=== PATIENT | male | born 1940 | race Caucasian/White ===

== ENCOUNTER 2019-11-21 05:41 | Day surgery (SDC) | payer MEDICARE, BC, MEDICAID ==
[2019-11-18 14:55] VITALS: BMI 22.9
[2019-11-21] MEDS ORDERED: Ophthalmic Irrigation Solution 0 ML ONE (06:30)
[2019-11-21] MEDS ORDERED: Bupivacaine 0.25% HCL 30 ML VIAL ONE (06:30)
[2019-11-21] MEDS ORDERED: EPINEPHrine 1 MG/ML AMP ONE (06:30)
[2019-11-21] MEDS ORDERED: Fentanyl 100 MCG/2 ML VIAL ONE (06:31)
[2019-11-21] MEDS ORDERED: HYDROmorphone 0.5 MG/0.5 ML SYRINGE ONE (06:31)
[2019-11-21] MEDS ORDERED: Midazolam HCl 2 mg/2 ml Vial ONE (07:14)
[2019-11-21] MEDS ORDERED: Lidocaine 1% (PF) 30 ML VIAL ONE (07:25)
--- NOTE | 2019-11-28 18:31 | EKG ---
Test Reason : PREOP Blood Pressure : / mmHG Vent. Rate : 073 BPM Atrial Rate : 059 BPM P-R Int : 000 ms QRS Dur : 152 ms QT Int : 472 ms P-R-T Axes : 000 005 068 degrees QTc Int : 519 ms Electronic ventricular pacemaker No previous ECGs available Confirmed by JASON WRIGHT, DR. Julian ([id number]) on 11/28/2019 6:30:57 PM Referred By: SONU Confirmed By:DR. Eliel GOMEZ MD
== END 2019-11-21 10:21 | disposition home or self-care (01) ==
LOC: SDC 05:41
PROVIDERS: ATTEND Plastic Surgery
DX: C44.612 Basal cell carcinoma of skin of right upper limb, including shoulder (principal); C44.41 Basal cell carcinoma of skin of scalp and neck; C44.309 Unspecified malignant neoplasm of skin of other parts of face; I11.0 Hypertensive heart disease with heart failure; I50.9 Heart failure, unspecified; I25.2 Old myocardial infarction; J44.9 Chronic obstructive pulmonary disease, unspecified; M19.90 Unspecified osteoarthritis, unspecified site; G30.9 Alzheimer's disease, unspecified; F02.80 Dementia in other diseases classified elsewhere, unspecified severity, without behavioral disturbance, psychotic disturbance, mood disturbance, and anxiety; Z53.9 Procedure and treatment not carried out, unspecified reason; Z86.73 Personal history of transient ischemic attack (TIA), and cerebral infarction without residual deficits; Z79.01 Long term (current) use of anticoagulants; Z79.82 Long term (current) use of aspirin; Z79.899 Other long term (current) drug therapy; Z95.810 Presence of automatic (implantable) cardiac defibrillator
CPT/HCPCS: 93005; 93010; J0171; J0690; J1170; J2001; J2250; J3010; S0020

== ENCOUNTER 2020-08-01 07:42 | Inpatient (IN) | payer MEDICARE, MEDICAID, OTHER ==
[2020-08-01] MEDS ORDERED: Cefepime 2 GM VIAL ONE (08:43)
[2020-08-01] MEDS ORDERED: Vancomycin HCl 1.2 GM in Sodium Chloride 0.9% 250 ML 250 ML IVPB SCH (08:45)
[2020-08-01] MEDS ORDERED: Vancomycin HCl 1.25 GM in Sodium Chloride 0.9% 250 ML 250 ML IVPB SCH (09:00)
[2020-08-01 10:14] LABS: SARS-CoV-2 NAA Rapid Test DETECTED (NotDetected)
[2020-08-01 11:02] LABS: Bilirubin Negative (Negative); Blood, Urine Negative (Negative); Clarity Clear (Clear); Glucose, Urine (Dipstick) Normal (Negative); Ketone, Urine Negative (Negative); Leukocyte Negative Leu/uL (Negative); Nitrite Negative (Negative); Protein, Urine (Dipstick) 70 mg/dL (Neg-Trace); RBC/HPF 0-3 HPF (0-3); Specific Gravity, Urine 1.023 (1.002-1.036); Squamous Epithelial 0-3 HPF (0-3); Urobilinogen Normal mg/dL (Less than 2); WBC/HPF 0-3 HPF (0-3); pH, Urine 5.5 (5.0-9.0)
[2020-08-01 11:03] LABS: Bacteria/HPF 1+ HPF (None Seen)
--- NOTE | 2020-08-01 11:07 | CT ---
CT HEAD WITHOUT CONTRAST: INDICATION: Mental status change. COMPARISON: Comparison is made to head CT of 01/31/2020. FINDINGS: Moderate cortical atrophy again noted. Ventricles have normal size and position. Moderate chronic i schemic white matter change. Encephalomalacia involving the right temporoparietal lobe is stable. No evidence of cute hemorrhage. No evidence of mass, edema, or acute infarct. No interval change. IMPRESSION: Chronic findings remain stable. POS: AGW
[2020-08-01 11:30] LABS: Lactic Acid 1.8 mmol/L (0.5-2.2)
--- NOTE | 2020-08-01 12:12 | PDOC.FPRHP ---
- History of Present Illness Chief Complaint: Cough and fever History of Present Illness: This is an 80 yo male with a pmh of HTN, CVA, COPD, GERD, constipation, Alzheimer's dementia, HLD, and seizures who presents to the ER from [facility]. Per chart review, pt was coughing and febrile for the last 2 days. Prior to sending the patient to the ER, the prison reports he became increasingly combative, tachypnic, and they were unable to obtain vitals due to his behavior. I spoke with his daughter who reports they have not been able to see him for a while due to COVID. In the outside ER, a CXR was obtained that shows no signs of acute intrathoracic processes. He was given Zosyn 2.25g, Levaquin 500mg, and Vancomycin 1g at roughly 0600 this AM. He also received 2L NS bolus, Tylenol 1g, and Albuterol HFA 2 puffs. In our ER, he received Cefepime 2g, Vancomycin 1.2g, and NS 1L bolus. When I went to evaluate the pt, he was moderately agitated and would not cooperate with the majority of the exam. ED Course: See Above - Allergies/Adverse Reactions Allergies Allergy/AdvReac Type Severity Reaction Status Date / Time No Known Allergies Allergy Unverified 01/19/20 15:08 - Home Medications Medication Instructions Recorded Confirmed Type Acetaminophen [Tylenol] 650 mg PO PRN PRN 11/18/19 08/01/20 History Apixaban [Eliquis] 2.5 mg PO BID 11/18/19 08/01/20 History Aspirin [Ecotrin] 81 mg PO DAILY 11/18/19 08/01/20 History Digoxin [Lanoxin] 125 mcg PO DAILY 11/18/19 08/01/20 History Docusate [Colace] 100 mg PO DAILY 11/18/19 08/01/20 History Furosemide 40 mg PO DAILY 11/18/19 08/01/20 History Memantine HCl 5 mg PO DAILY 11/18/19 08/01/20 History Metoprolol Succinate 25 mg PO DAILY 11/18/19 08/01/20 History Potassium Chloride 20 meq PO DAILY 11/18/19 08/01/20 History Sertraline HCl [Zoloft] 25 mg PO DAILY 11/18/19 08/01/20 History Atorvastatin Calcium [Lipitor] 5 mg PO HS 08/01/20 08/01/20 History Divalproex Sodium ER [Depakote ER] 250 mg PO HS 08/01/20 08/01/20 History Donepezil HCl [Aricept] 10 mg PO HS 08/01/20 08/01/20 History Mag Hydrox/Aluminum Hyd/Simeth 355 ml PO PRN PRN 08/01/20 08/01/20 History [Mylanta Maximum Strength Liq] Magnesium Hydroxide [Milk of 5 - 10 ml PO HS PRN 08/01/20 08/01/20 History Magnesia] OLANZapine [ZyPREXA] 2.5 mg PO HS 08/01/20 08/01/20 History OXcarbazepine [Trileptal] 75 mg PO DAILY 08/01/20 08/01/20 History OXcarbazepine [Trileptal] 150 mg PO HS 08/01/20 08/01/20 History clonazePAM 0.25 mg PO BID 08/01/20 08/01/20 History - History PMHx:COPD, CVA, HTN, GERD, Alzheimer's dementia, constipation, PSHx: pace maker placement FHx: Non-contributory Social: Unable to obtain - Review of Systems ROS unobtainable: due to mental status General: reports: fever/chills. denies: weight/appetite/sleep changes, night sweats, fatigue Respiratory: reports: cough, congestion, shortness of breath - Vital signs BP: 147/67 HR: 60 RR: 18 Tmax: 100.6 Pox: 96% on 2L Wt: 61 kg - Physical Exam Constitutional: other (GCS [id number], pt not oriented and combative with normal exam) HEENT: PERRLA, MMM Neck: trachea midline, no JVD Heart: RRR, normal S1/S2, no murmurs/rubs/gallops, pulses present, other (cool extremities) Lungs: other (diffuse rhonchi, poor respiratory effor) Abdomen: soft, non-tender, bowel sounds present, no masses/distention Musculoskeletal: normal structure Neurological: other (Unable to assess) Skin: good turgor, other Heme/Lymphatic: other (bruising over hands and forearms) Psychiatric: other (agitated) FMR H&P: Results - Labs Lab results: Lactic Acid 1.8 mmol/L (0.5-2.2) 08/01/20 10:58 Urine Ketones Negative mg/dL (Negative) 08/01/20 10:32 Urine Blood Negative (Negative) 08/01/20 10:32 Urine Nitrite Negative (Negative) 08/01/20 10:32 Ur Leukocyte Esterase Negative Dhiraj/uL (Negative) 08/01/20 10:32 Urine RBC 0-3 HPF (0-3) 08/01/20 10:32 Urine WBC 0-3 HPF (0-3) 08/01/20 10:32 Ur Squamous Epith Cells 0-3 HPF (0-3) 08/01/20 10:32 Urine Bacteria 1+ HPF (None Seen) A 08/01/20 10:32 - EKG Interpretation EKG: Paced rhythm at 61 - Radiology Interpretation Chest x-ray Status: image reviewed by me (Possible opacities over the left mid lobe), report reviewed by me (No acute intrathoracic findings) CT scan - head Status: report reviewed by me (No acute intracranial processes) FMR H&P: A/P - Plan Acute hypoxic respiratory failure 2/2 COVID PNA -Admit to inpatient medical -Start of COVID symptoms: 07/30/20, Positive test on 08/01/20 -Respiratory support -Duonebs given hx of COPD -Dexamethasone IV -Pending Procal, LDH, ferritin, d-dimer to quantify COVID severity and establish baseline -Daily CXR Sepsis 2/2 above -Currently on Azithromycin and cefepime, pending procal to determine abx continuation -Pending blood and urine cultures from [facility] Acute metabolic encephalopathy likely 2/2 above -Continue home medications for Alzheimer's -Treat Sepsis -CT brain negative CKD 3 -Appears stable Pancytopenia -Will monitor Lactic acidosis, resolved Elevated troponin, likely 2/2 stress Atrial fibrillation -Continue home eliquis, metoprolol, and digoxin -Currently rate controlled. Levels appeared subtherapeutic at 0.50 COPD -Will treat with duonebs and steroids GERD -Pepcid IV Alzheimer's dementia -Continue home olanzapine, clonazepam, and donepezil Hx of seizures -Continue home depakote Hx of CVA -Continue home aspirin and atorvastatin Code: DNAR confirmed by pt's daughter MPOA Prophylaxis: Home Eliquis, pepcid Family: Discussed with pt's daughter Opal Delgado Fluids: LR 100ml/hr Diet: NPO pending speech eval Disposition: DC in 4-5 days, CM consulted for return to prison PCP: Dr. Delarosa
[2020-08-01] MEDS ORDERED: Ondansetron ODT 4 MG TAB SL PRN (12:45)
[2020-08-01] MEDS ORDERED: Ondansetron PF 4 MG/2 ML Vial IVP PRN (12:45)
[2020-08-01] MEDS ORDERED: Sodium Chloride 0.9% 1,000 ML IV SCH (12:45)
[2020-08-01] MEDS ORDERED: Acetaminophen 325 MG TAB PO PRN (12:45)
[2020-08-01] MEDS ORDERED: Azithromycin 500 MG in Sodium Chloride 0.9% 250 ML 250 ML IVPB SCH (13:00)
[2020-08-01] MEDS ORDERED: Mag-Al Plus 1200 MG/1200 MG/120 MG/30 ML UDCUP PO PRN (13:56)
[2020-08-01] MEDS ORDERED: PROVENTIL INHALER 6.7 G (200 INHALATIONS) INH PRN ×2 (14:23→14:30)
[2020-08-01] MEDS: Cefepime 1 GM in Sodium Chloride 0.9% 100 ML IVPB SCH (14:50)
[2020-08-01] MEDS: Lactated Ringer's 1,000 ML IV SCH ×2 (14:52→23:18)
[2020-08-01] MEDS ORDERED: Labetalol HCl 100 MG/20 ML VIAL SLOW IVP PRN (15:57)
[2020-08-01 16:15] VITALS: BMI 24.1
[2020-08-01] MEDS: PROVENTIL INHALER 6.7 G (200 INHALATIONS) INH SCH ×2 (18:55→23:17)
[2020-08-01] MEDS: Atorvastatin Calcium 10 MG TAB PO SCH (20:28)
[2020-08-01] MEDS: clonazePAM 0.5 MG TAB PO SCH (20:28)
[2020-08-01] MEDS: Apixaban 2.5 MG TAB PO SCH (20:28)
[2020-08-01] MEDS: Dexamethasone 4 MG in Sodium Chloride 0.9% 50 ML IVPB SCH (20:31)
[2020-08-01] MEDS: OLANZapine 2.5 MG TAB PO SCH (20:32)
[2020-08-01] MEDS: Donepezil HCl 10 MG TAB PO SCH (20:32)
[2020-08-01] MEDS: OXcarbazepine 150 MG TAB PO SCH (20:32)
[2020-08-01] MEDS ORDERED: Famotidine/PF 20 mg/2ml Vial SLOW IVP SCH (21:00)
[2020-08-02] MEDS: PROVENTIL INHALER 6.7 G (200 INHALATIONS) INH SCH ×6 (03:23→23:32)
[2020-08-02 06:20] LABS: ALT (SGPT) 10 U/L (8-55); AST (SGOT) 19 U/L (5-34); Albumin 3.1 g/dL (3.4-4.8); Alkaline Phosphatase 92 U/L (40-110); Anion Gap 16 mmol/L (10-20); BUN (Urea Nitrogen) 37 mg/dL (8.4-25.7); Bilirubin, Total 0.4 mg/dL (0.2-1.2); Calc. Creatinine Clearance 37 mL/min (70-130); Calcium 7.7 mg/dL (7.8-10.44); Carbon Dioxide 17 mmol/L (23-31); Chloride 114 mmol/L (98-107); Estimated GFR-MDRD 41; Globulin 2.5 g/dL (2.4-3.5); Glucose 154 mg/dL (83-110); Potassium 4.7 mmol/L (3.5-5.1); Protein, Total 5.6 g/dL (5.8-8.1); Sodium 142 mmol/L (136-145)
[2020-08-02 07:09] LABS: #Lymphocytes 0.4 thou/uL (1.20-3.40); #Monocytes 0.2 thou/uL (0.11-0.59); #Neutrophils 1.3 thou/uL (1.40-6.50); %Eosinophils 0.2 % (0.0-10.0); %Lymphocytes 21.2 % (21.0-51.0); %Monocytes 8.5 % (0.0-10.0); Hemoglobin 9.7 g/dL (14.0-18.0); Mean Corpuscular Hemoglobin 29.9 pg (27.0-31.0); Mean Corpuscular Volume 96.3 fL (78.0-98.0); Mean Platelet Volume 8.1 fL (7.4-10.4); Platelet Count 108 thou/uL (130-400); RBC Distribution Width 14.8 % (11.5-14.5); Red Blood Cell (RBC) Count 3.25 mill/uL (4.70-6.10); White Blood Cell (WBC) Count 1.9 thou/uL (4.8-10.8)
[2020-08-02 07:49] LABS: MDiff Complete? YES; Platelet Morphology Comment Appears Decreased; Polychromasia SLIGHT = 2-3 cells (100X) (0-2/hpf)
[2020-08-02] MEDS ORDERED: Tetracaine HCl 0.5% Ophth Soln 2 ML Bottle ONE (08:15)
[2020-08-02] MEDS: Azithromycin 250 MG in Sodium Chloride 0.9% 250 ML 250 ML IVPB SCH (09:31)
[2020-08-02] MEDS: OXcarbazepine 150 MG TAB PO SCH ×2 (09:31→20:21)
[2020-08-02] MEDS: Dexamethasone 4 MG in Sodium Chloride 0.9% 50 ML IVPB SCH ×2 (09:31→20:21)
[2020-08-02] MEDS: Docusate 100 MG CAP PO SCH ×2 (09:32)
[2020-08-02] MEDS: Apixaban 2.5 MG TAB PO SCH ×2 (09:32→20:22)
[2020-08-02] MEDS: Furosemide 40 MG TAB PO SCH (09:32)
[2020-08-02] MEDS: Digoxin 0.125 MG TAB PO SCH (09:32)
[2020-08-02] MEDS: clonazePAM 0.5 MG TAB PO SCH ×2 (09:32→20:22)
[2020-08-02] MEDS: Aspirin 81 mg Enteric Coated Tablet PO SCH (09:32)
--- NOTE | 2020-08-02 09:34 | RAD ---
PORTABLE CHEST: Date: 08/02/2020 HISTORY: COVID pneumonia. COMPARISON: 08/01/2020 exam. FINDINGS: Heart size appears slightly enlarged. Internal defibrillator device is present Infiltrative appearing changes in the left mid lung field and a more linear change in the right base are all stable. IMPRESSION: Stable exam. POS: SHE
[2020-08-02] MEDS: Lactated Ringer's 1,000 ML IV SCH ×3 (10:13→20:24)
[2020-08-02] MEDS ORDERED: Azithromycin 250 MG in Sodium Chloride 0.9% 500 ML IVPB SCH (13:00)
--- NOTE | 2020-08-02 13:11 | PDOC.FM ---
- Subjective Subjective: Patient lying in bed this morning, not cooperative with answering questions and for most of exam. States repeatedly "leave me alone". No complaints. - Objective MAR Reviewed: Yes Vital Signs & Weight: Vital Signs (12 hours) Temp Pulse Resp BP Pulse Ox 08/02/20 12:33 97.4 F L 61 18 157/77 H 97 08/02/20 09:32 97.4 F L 61 18 158/74 H 96 08/02/20 05:45 97.8 F 60 20 137/65 92 L 08/02/20 03:00 62 20 93 L Weight Weight 72.121 kg I&O: 08/01/20 08/02/20 08/03/20 06:59 06:59 06:59 Intake Total 2310 Balance 2310 Result Diagrams: 08/02/20 05:49 08/02/20 05:49 Phys Exam - Physical Examination Constitutional: NAD HEENT: moist MMs Neck: no JVD, supple Respiratory: clear to auscultation bilateral Cardiovascular: RRR, no significant murmur Musculoskeletal: no edema Neurological: moves all 4 limbs Deviation from normal: alert, oriented to person Skin: no rash Dx/Plan - Plan Plan: Acute hypoxic respiratory failure 2/2 COVID PNA -Start of COVID symptoms: 07/30/20, Positive test on 08/01/20 -Respiratory support, currently requiring 3L N/C--wean as tolerated -Duonebs given hx of COPD -Dexamethasone IV -Procal, LDH, ferritin, d-dimer to quantify COVID severity and establish baseline -Daily CXR Sepsis 2/2 above -Currently on Azithromycin and cefepime, pending procal to determine abx continuation -Pending blood and urine cultures from [facility] Acute metabolic encephalopathy likely 2/2 above -Continue home medications for Alzheimer's -Treat Sepsis -CT brain negative CKD 3 -Appears stable Pancytopenia -Will monitor Lactic acidosis, resolved Elevated troponin, likely 2/2 stress Atrial fibrillation -Continue home eliquis, metoprolol, and digoxin -Currently rate controlled. Levels appeared subtherapeutic at 0.50 COPD -Will treat with duonebs and steroids GERD -Pepcid IV Alzheimer's dementia -Continue home olanzapine, clonazepam, and donepezil Hx of seizures -Continue home depakote Hx of CVA -Continue home aspirin and atorvastatin Code: DNAR confirmed by pt's daughter MPOA Prophylaxis: Home Eliquis, pepcid Family: Discussed with pt's daughter Opal Delgado Fluids: LR 100ml/hr Diet: NPO pending speech eval PCP: Dr. Delarosa Disposition: Stable, admitted to inpatient on medical unit. Monitor respiratory status. Anticipate discharge 2-3 days, CM consulted for return to [facility]
[2020-08-02] MEDS: Cefepime 1 GM in Sodium Chloride 0.9% 100 ML IVPB SCH (14:34)
--- NOTE | 2020-08-02 15:46 | HP ---
HISTORY OF PRESENT ILLNESS: I have examined the patient and discussed the case with Dr. Jose Sheppard. I agree with his assessment and plan. Mr. Garduno is an 80-year-old man with many comorbidities including hypertension, CVA, COPD, and Alzheimer dementia. He presented from the [facility] with COVID positivity as well as pneumonia. He has been admitted for further treatment. PHYSICAL EXAMINATION: VITAL SIGNS: His blood pressure is 147/60, heart rate is 60, respirations 18. He had a 102.6 fever at an outlying institution. Here, it is 100.6. His pulse ox on 2 L is 96%. GENERAL: The patient is very combative and disoriented. EAR, NOSE, AND THROAT: No erythema or exudate. CARDIAC : Heart rhythm regular. No gallop or murmur noted. LUNGS: Diffuse rhonchi, but no respiratory distress. ABDOMEN: Flat and soft. Difficult to assess neurologically, but no evident focal deficits. ASSESSMENT: Acute hypoxic respiratory failure secondary to COVID pneumonia. PLAN: Begin treatment. O2 supplementation. Monitor closely. Would now like to proceed with a daily note on Mr. Garduno and add this as an addendum to the note of Dr. Cynthia Garcia. I have reviewed the note of Dr. Cynthia Garcia. I agreed with her assessment and plan. Job ID: [id number]
[2020-08-02] MEDS: Atorvastatin Calcium 10 MG TAB PO SCH (20:21)
[2020-08-02] MEDS: Donepezil HCl 10 MG TAB PO SCH (20:21)
[2020-08-02] MEDS: OLANZapine 2.5 MG TAB PO SCH (20:23)
[2020-08-02] MEDS: Famotidine/PF 20 mg/2ml Vial SLOW IVP SCH (20:24)
[2020-08-03] MEDS: Acetaminophen 500 MG TAB PO PRN (00:06)
[2020-08-03] MEDS: PROVENTIL INHALER 6.7 G (200 INHALATIONS) INH SCH ×6 (02:11→20:47)
[2020-08-03 05:58] LABS: #Lymphocytes 0.4 thou/uL (1.20-3.40); #Monocytes 0.2 thou/uL (0.11-0.59); #Neutrophils 3.1 thou/uL (1.40-6.50); %Eosinophils 0.2 % (0.0-10.0); %Lymphocytes 10.9 % (21.0-51.0); %Monocytes 5.3 % (0.0-10.0); %Neutrophils 83.6 % (42.0-75.0); Hemoglobin 9.7 g/dL (14.0-18.0); Mean Corpuscular HGB CONC 32.5 g/dL (32.0-36.0); Mean Corpuscular Hemoglobin 30.6 pg (27.0-31.0); Mean Corpuscular Volume 94.2 fL (78.0-98.0); Mean Platelet Volume 7.9 fL (7.4-10.4); Platelet Count 124 thou/uL (130-400); RBC Distribution Width 14.6 % (11.5-14.5); Red Blood Cell (RBC) Count 3.17 mill/uL (4.70-6.10); White Blood Cell (WBC) Count 3.7 thou/uL (4.8-10.8)
[2020-08-03] MEDS: Lactated Ringer's 1,000 ML IV SCH ×3 (06:06→19:50)
[2020-08-03 06:18] LABS: Anion Gap 18 mmol/L (10-20); BUN (Urea Nitrogen) 46 mg/dL (8.4-25.7); Calc. Creatinine Clearance 37 mL/min (70-130); Carbon Dioxide 17 mmol/L (23-31); Chloride 112 mmol/L (98-107); Estimated GFR-MDRD 41; Potassium 4.3 mmol/L (3.5-5.1); Sodium 143 mmol/L (136-145)
[2020-08-03 06:19] LABS: ALT (SGPT) 13 U/L (8-55); AST (SGOT) 24 U/L (5-34); Albumin 3.4 g/dL (3.4-4.8); Alkaline Phosphatase 94 U/L (40-110); Bilirubin, Total 0.4 mg/dL (0.2-1.2); Calcium 8.3 mg/dL (7.8-10.44); Globulin 2.7 g/dL (2.4-3.5); Glucose 136 mg/dL (83-110); Protein, Total 6.1 g/dL (5.8-8.1)
--- NOTE | 2020-08-03 07:07 | PDOC.FM ---
- Subjective Subjective: Patient seen sitting up in bed, eating chocolate pudding this morning. No overnight events. Voices no complaints. - Objective MAR Reviewed: Yes Vital Signs & Weight: Vital Signs (12 hours) Temp Pulse Resp BP Pulse Ox 08/03/20 04:00 97.7 F 62 20 150/67 H 94 L 08/03/20 00:21 95 08/03/20 00:00 98.6 F 93 18 147/77 H 95 08/02/20 20:26 62 20 95 08/02/20 20:00 95 08/02/20 19:59 97.8 F 62 20 158/74 H 95 Weight Admit Weight 72.121 kg Weight 72.121 kg I&O: 08/02/20 08/03/20 08/04/20 06:59 06:59 06:59 Intake Total 2310 2890 Balance 2310 2890 Result Diagrams: 08/03/20 05:38 08/03/20 05:38 Phys Exam - Physical Examination Constitutional: NAD HEENT: moist MMs, sclera anicteric Neck: no JVD, supple Respiratory: clear to auscultation bilateral Cardiovascular: RRR, no significant murmur Gastrointestinal: soft, non-tender, no distention Musculoskeletal: no edema, pulses present Neurological: moves all 4 limbs Psychiatric: normal affect Skin: no rash Dx/Plan - Plan Plan: Acute hypoxic respiratory failure 2/2 COVID PNA -Start of COVID symptoms: 07/30/20, Positive test on 08/01/20 -Respiratory support, currently requiring 2L N/C--wean as tolerated -Duonebs given hx of COPD -Dexamethasone IV -Procal, LDH, ferritin, d-dimer to quantify COVID severity and establish baseline -Daily CXR Sepsis 2/2 above -Currently on Azithromycin and cefepime -Procal 0.27 -blood and urine cultures from [facility]--both neg @ 24 hours Acute metabolic encephalopathy likely 2/2 above -Continue home medications for Alzheimer's -Treat Sepsis -CT brain negative CKD 3 -Appears stable Pancytopenia -Will monitor Lactic acidosis, resolved Elevated troponin, likely 2/2 stress Atrial fibrillation -Continue home eliquis, metoprolol, and digoxin -Currently rate controlled. Levels appeared subtherapeutic at 0.50 COPD -Will treat with duonebs and steroids GERD -Pepcid IV Alzheimer's dementia -Continue home olanzapine, clonazepam, and donepezil Hx of seizures -Continue home depakote Hx of CVA -Continue home aspirin and atorvastatin Code: DNAR confirmed by pt's daughter MPOA Prophylaxis: Home Eliquis, pepcid Family: Discussed with pt's daughter Opal Delgado, Fluids: LR 100ml/hr Diet: Regular diet (thickened textures per speech eval) PCP: Dr. Delarosa Disposition: Stable, admitted to inpatient on medical unit. Monitor respiratory status. Anticipate discharge 2-3 days, CM consulted for return to [facility]
[2020-08-03] MEDS: Aspirin 81 mg Enteric Coated Tablet PO SCH (08:29)
[2020-08-03] MEDS: clonazePAM 0.5 MG TAB PO SCH ×2 (08:29→19:49)
[2020-08-03] MEDS: Docusate 100 MG CAP PO SCH (08:30)
[2020-08-03] MEDS: OXcarbazepine 150 MG TAB PO SCH ×2 (08:30→19:50)
[2020-08-03] MEDS: Apixaban 2.5 MG TAB PO SCH ×2 (08:30→19:48)
[2020-08-03] MEDS: Digoxin 0.125 MG TAB PO SCH (08:30)
--- NOTE | 2020-08-03 08:30 | RAD ---
Exam: Chest one view HISTORY:COVID pneumonia Comparison: 08/02/2020 FINDINGS: Cardiac silhouette:Cardiomegaly. Stable 3-lead defibrillator. Aorta: Atherosclerotic Pulmonary vessels: Normal Costophrenic angles: Clear LUNGS: Persistent scattered interstitial opacities with more focal consolidation in the left lung. Pneumothorax: None Osseous abnormalities: None IMPRESSION: No significant interval change. Persistent COVID pneumonia.
[2020-08-03] MEDS: Furosemide 40 MG TAB PO SCH (08:31)
[2020-08-03] MEDS: Dexamethasone 4 MG in Sodium Chloride 0.9% 50 ML IVPB SCH ×2 (08:37→19:49)
[2020-08-03] MEDS: Azithromycin 250 MG in Sodium Chloride 0.9% 250 ML 250 ML IVPB SCH (11:38)
--- NOTE | 2020-08-03 12:21 | PRG ---
DATE OF SERVICE: 08/03/2020 Mr. Garduno is doing well. He is sitting up in bed, happily eating some chocolate pudding. He is still on treatment for his bacterial pneumonia as well as supportive care for his COVID pneumonia. His current regimen includes azithromycin and cefepime. Job ID: [id number]
[2020-08-03] MEDS: Cefepime 1 GM in Sodium Chloride 0.9% 100 ML IVPB SCH (14:35)
[2020-08-03] MEDS: Atorvastatin Calcium 10 MG TAB PO SCH (19:48)
[2020-08-03] MEDS: Famotidine/PF 20 mg/2ml Vial SLOW IVP SCH (19:49)
[2020-08-03] MEDS: Donepezil HCl 10 MG TAB PO SCH (19:49)
[2020-08-03] MEDS: OLANZapine 2.5 MG TAB PO SCH (19:50)
[2020-08-03 23:00] LABS: Actual Bicarbonate (HCO3a) 17.5 mEq/L (22-28); Base Excess (BEa) -6.9 mEq/L (-2.0 to +3.0); CO2 Tension 31.4 mmHg (35.0-45.0); Calcium, Ionized (arterial) 1.16 mmol/L (1.12-1.30); Carboxyhemoglobin (COHb) 0.3 gm% (0.0-3.0); Hemoglobin (Hb) 10.1 g/dL (14.0-18.0); O2 Tension (PaO2), arterial 94.9 mmHg (> 60.0); Potassium - ABG Lab 4.49 mmol/L (3.70-5.30); pH, Arterial 7.37 (7.35-7.45)
[2020-08-03 23:01] LABS: Puncture Site R RADIAL
[2020-08-04] MEDS: hydrOXYzine 25 MG TAB PO PRN ×2 (00:28→14:18)
[2020-08-04] MEDS: Lactated Ringer's 1,000 ML IV SCH ×3 (00:57→20:41)
[2020-08-04] MEDS: PROVENTIL INHALER 6.7 G (200 INHALATIONS) INH SCH ×6 (02:27→22:06)
--- NOTE | 2020-08-04 05:37 | PDOC.FM ---
- Subjective Subjective: Pt desaturated overnight and was placed on a non-rebreather. He is now on HFNC. Pt cannot receive - Objective MAR Reviewed: Yes Vital Signs & Weight: Vital Signs (12 hours) Temp Pulse Resp BP Pulse Ox 08/04/20 04:20 97.6 F 60 22 H 160/71 H 92 L 08/04/20 00:30 98.3 F 62 24 H 160/78 H 94 L 08/03/20 21:10 64 24 H 93 L 08/03/20 20:00 91 L 08/03/20 19:50 97.8 F 64 28 H 115/75 91 L 08/03/20 18:48 62 20 92 L Weight Admit Weight 72.121 kg Weight 72.121 kg I&O: 08/02/20 08/03/20 08/04/20 06:59 06:59 06:59 Intake Total 2310 2890 1360 Balance 2310 2890 1360 Result Diagrams: 08/03/20 05:38 08/03/20 05:38 Phys Exam - Physical Examination Resting dry mm Neck: no JVD Respiratory: wheezing present (with scattered rhonchi) Cardiovascular: RRR, no significant murmur Gastrointestinal: soft, non-tender, no distention Musculoskeletal: no edema, pulses present Neurological: moves all 4 limbs Deviation from normal: awake but not oriented Skin: cap refill <2 seconds Dx/Plan - Plan Plan: Acute hypoxic respiratory failure 2/2 COVID PNA -Start of COVID symptoms: 07/30/20, Positive test on 08/01/20 -Respiratory support and is now requiring HFNC -Dr. Abbasi consultd and starting convalescent plasma and remdesivir -Duonebs given hx of COPD -Dexamethasone IV -Procal, LDH, ferritin, d-dimer to quantify COVID severity and establish baseline -Daily CXR Sepsis 2/2 above -Currently on Azithromycin and cefepime -Procal 0.27 -blood and urine cultures from [facility]--both neg Acute metabolic encephalopathy likely 2/2 above -Continue home medications for Alzheimer's -Treat Sepsis -CT brain negative CKD 3 -Appears stable Pancytopenia -Will monitor Lactic acidosis, resolved Elevated troponin, likely 2/2 stress Atrial fibrillation -Continue home eliquis, metoprolol, and digoxin -Currently rate controlled. Levels appeared subtherapeutic at 0.50, repeating level this AM COPD -Will treat with Inhalers and steroids. Due to pt's poor cooperation, we will attempt oral albuterol and Singulair to help with breathing GERD -Pepcid IV Alzheimer's dementia -Continue home olanzapine, clonazepam, and donepezil Hx of seizures -Continue home depakote Hx of CVA -Continue home aspirin and atorvastatin Code: DNAR confirmed by pt's daughter MPOA Prophylaxis: Home Eliquis, pepcid Family: Discussed with pt's daughter Opal Delgado, Fluids: SL Diet: Regular diet (thickened textures per speech eval) PCP: Dr. Delarosa Disposition: Stable, admitted to inpatient on medical unit. Monitor respiratory status. Anticipate discharge 4-5 days, CM consulted for return to long term Addendum - Attending - Attending Attestation Date/Time: 08/04/20 3136 I personally evaluated the patient and discussed the management with Dr. Sheppard. I agree with the History, Examination, Assessment and Plan documented above with any addition or exceptions noted below. Patient having increasing oxygen requirement. We will discuss with ID the pot ential for Remdesevir and Plasma. We will increase his steroids. he is a DNAR so HFNC is likely the last therapeutic we will have to offer. Will discuss and update family. Renal function stable.
--- NOTE | 2020-08-04 08:10 | RAD ---
PORTABLE CHEST: HISTORY: Respiratory distress. COMPARISON: Film earlier today. FINDINGS: There is hazy alveolar infiltrate throughout the left lung prominent in the left perihilar region, un changed from the film earlier today. Interstitial haziness in the right lung appears stable. Bilate ral effusions are unchanged in appearance. Pacemaker leads unchanged. IMPRESSION: Stable chest findings. POS: AGW
[2020-08-04] MEDS: Ipratropium/Albuterol Sulfate 4 GM AER IH SCH ×3 (08:31→18:54)
[2020-08-04] MEDS: Dexamethasone 4 MG in Sodium Chloride 0.9% 50 ML IVPB SCH (08:34)
--- NOTE | 2020-08-04 09:05 | RAD ---
PORTABLE CHEST: HISTORY: COVID pneumonia. COMPARISON: Prior day's exam. FINDINGS: Heart size is enlarged. Internal defibrillator device is present. Infiltrative lung changes and chr onic-appearing changes are all stable. IMPRESSION: Stable exam. POS: OFF
[2020-08-04] MEDS: Apixaban 2.5 MG TAB PO SCH ×2 (09:51→20:39)
[2020-08-04] MEDS: Docusate 100 MG CAP PO SCH (09:51)
[2020-08-04] MEDS: Aspirin 81 mg Enteric Coated Tablet PO SCH (09:51)
[2020-08-04] MEDS: clonazePAM 0.5 MG TAB PO SCH ×2 (09:53→20:36)
[2020-08-04] MEDS: OXcarbazepine 150 MG TAB PO SCH ×2 (09:53→20:38)
[2020-08-04] MEDS: Digoxin 0.125 MG TAB PO SCH (09:53)
[2020-08-04] MEDS: Furosemide 40 MG TAB PO SCH (09:53)
[2020-08-04] MEDS: Azithromycin 250 MG in Sodium Chloride 0.9% 250 ML 250 ML IVPB SCH (09:54)
[2020-08-04] MEDS ORDERED: Sterile Water 10 ML VIAL FS PRN (10:30)
[2020-08-04] MEDS ORDERED: Albuterol Sulfate 4 mg SR Tablet PO SCH (12:00)
[2020-08-04] MEDS ORDERED: Dexamethasone 6 MG in Sodium Chloride 0.9% 50 ML IVPB SCH ×2 (12:00→21:00)
[2020-08-04] MEDS: Cefepime 1 GM in Sodium Chloride 0.9% 100 ML IVPB SCH ×2 (15:09→16:03)
[2020-08-04 16:33] LABS: #Lymphocytes 0.2 thou/uL (1.20-3.40); #Monocytes 0.3 thou/uL (0.11-0.59); #Neutrophils 5.4 thou/uL (1.40-6.50); %Eosinophils 0.1 % (0.0-10.0); %Lymphocytes 3.8 % (21.0-51.0); %Neutrophils 91.1 % (42.0-75.0); Hemoglobin 9.7 g/dL (14.0-18.0); Mean Corpuscular HGB CONC 32.9 g/dL (32.0-36.0); Mean Corpuscular Hemoglobin 30.4 pg (27.0-31.0); Mean Corpuscular Volume 92.5 fL (78.0-98.0); Mean Platelet Volume 8.3 fL (7.4-10.4); Platelet Count 162 thou/uL (130-400); RBC Distribution Width 14.8 % (11.5-14.5); Red Blood Cell (RBC) Count 3.18 mill/uL (4.70-6.10); White Blood Cell (WBC) Count 5.9 thou/uL (4.8-10.8)
[2020-08-04 16:54] LABS: Digoxin 0.51 ng/mL (0.8-2.0)
[2020-08-04 16:55] LABS: ALT (SGPT) 11 U/L (8-55); AST (SGOT) 26 U/L (5-34); Albumin 3.3 g/dL (3.4-4.8); Alkaline Phosphatase 93 U/L (40-110); Bilirubin, Direct 0.3 mg/dL (0.1-0.3); Bilirubin, Total 0.5 mg/dL (0.2-1.2)
[2020-08-04 16:58] LABS: ALT (SGPT) 11 U/L (8-55); AST (SGOT) 28 U/L (5-34); Albumin 3.2 g/dL (3.4-4.8); Alkaline Phosphatase 94 U/L (40-110); Anion Gap 16 mmol/L (10-20); BUN (Urea Nitrogen) 51 mg/dL (8.4-25.7); Bilirubin, Total 0.5 mg/dL (0.2-1.2); Calc. Creatinine Clearance 37 mL/min (70-130); Calcium 8.2 mg/dL (7.8-10.44); Carbon Dioxide 19 mmol/L (23-31); Chloride 111 mmol/L (98-107); Estimated GFR-MDRD 41; Glucose 224 mg/dL (83-110); Potassium 4.3 mmol/L (3.5-5.1); Protein, Total 6.2 g/dL (5.8-8.1); Sodium 142 mmol/L (136-145)
[2020-08-04] MEDS ORDERED: REMDESIVIR (EUA) 200 MG in Sodium Chloride 0.9% 250 ML 210 ML IV SCH (17:15)
--- NOTE | 2020-08-04 18:47 | CON ---
DATE OF CONSULTATION: 08/04/2020 REASON: COVID pneumonia. HISTORY OF PRESENT ILLNESS: An 80-year-old, who is a resident at [facility] and has a history of prior CVA and dementia, probably multi-infarct dementia, COPD, hypertension, cardiomyopathy with AICD in place, who became symptomatic about 2 days before admission on August 01. [facility] and then tested again on the positive. This was a nasal swab PCR test and he was sent to the hospital because of tachycardia, elevated lactate, bilateral abnormal chest x-ray opacities. He is given IV fluids and broad-spectrum antimicrobial coverage and SARS-CoV-2 PCR test was positive. On arrival, his pulse is 60, respirations 20, and O2 saturation 96 on 3 L oxygen supplementation. He remained afebrile in the hospital emergency room. The exam there was not particularly remarkable. He was described as oriented to person. Initial findings also included white cell count 1.9, hemoglobin 9.7, platelet count with lymphocytopenia. His D-dimer is 1.07. The sodium 142, creatinine 1.61. Liver profile normal. Albumin 3.1. Procalcitonin was 0.27. CRP was 7.59 and ferritin was 170. Initial chest film demonstrated no evidence of consolidations. The next day, a chest x-ray was repeated and it showed infiltrative appearing changes mostly on the left side and some linear changes in the right base. So, the duration of the illness is probably around 7 to 8 days approximately, hard to tell though, but certainly within the week before admission. Currently, Mr. Garduno is delirious. He did not establish contact with me. He did not answer questions or follow commands. PAST MEDICAL HISTORY: COPD, prior CVA, multi-infarct dementia, cardiomyopathy, AICD, constipation, seizure activity reported, and hyperlipidemia. SOCIAL HISTORY: [facility] resident. Prior smoking history. FAMILY HISTORY: Noncontributory. ALLERGIES: NONE. MEDICATIONS: At the moment, patient is receiving; 1. Decadron. 2. Inhaler. 3. Azithromycin. 4. Cefepime. 5. Donepezil. 6. Lasix. 7. Namenda. 8. Zyprexa. 9. Trileptal. 10. Remdesivir. 11. Geodon. PHYSICAL EXAMINATION: VITAL SIGNS: T-max 100.4, he has been afebrile since; BP 160/68; heart rate 63; respiratory rate 17 to 22; and O2 saturation 93 to 96, he has been initially on 3 L and now is up to high-flow nasal cannula O2, keeping sats around 92 to 93. SKIN: Shows areas of bruising in the upper extremities. There is an ulcerated lesion on the top of the frontal area right at the midline, probably is chronic and there is left foot pressure area of damage in the first MPJ, left side. Peripheral IV access. GENERAL: Voiding in the diaper. He is delirious. He does not establish eye contact. LYMPHATICS: No lymphadenopathy. HEENT: Ocular movements conjugate. Oral cavity, no [place] teeth remaining. NECK: Supple. No jugular vein distention. AICD pocket site appears normal. LUNGS: Symmetric air entry. No obvious crackles or wheezing. S1, S2 with diminished heart sounds. No S3 or S4. ABDOMEN: Soft, not distended, or tender. No ascites. No bladder distention. No organomegaly. EXTREMITIES: Pulses are diminished in dorsalis pedis. No edema. He seems to be able to move extremities. No clonus. Plantar responses are flexor. LABORATORY: His sodium 142, creatinine is stable at 1.64. Liver profile normal. COVID was positive. Digoxin 0.5. Followup white cell count 5.9, hemoglobin 9.7, platelets 162. Urinalysis with 0 to 3 wbc's, protein 70. Urine culture, no growth in 48 hours. Followup chest x-ray, infiltrative lung changes, right and left side, more prominent on the left. ASSESSMENT: Cardiomyopathy, decreased ejection fraction, AICD, multi-infarct dementia or vascular dementia, respiratory symptoms, hypoxemia with abnormal lung findings on chest x-ray, positive SARS-CoV-2 PCR test as recently as August 01 with a previous negative [facility]. New onset of symptoms within the past 5 days. DISCUSSION: Patient has a likely SARS-CoV pneumonia and we will go ahead and discontinue azithromycin, continue cefepime in view of the asymmetry of the infiltrates, but I think soon we will be able to discontinue cefepime as well. Continue Decadron and Remdesivir. I am not clear that he has advanced directive at this point in time. I think he does. His ISARIC 4C mortality score is at least 60%. This is a recently published mortality score based on a very large number of patients from [place] and has the best performance in terms of predictive value of all the so far published the scores and includes clinical characteristics, such as age, sex, comorbidities, BUN, CRP, O2 saturation, and so on. He does have high risk of mortality much higher than the average patient of the same age group. Job ID: [id number]
[2020-08-04] MEDS: OLANZapine 2.5 MG TAB PO SCH (20:37)
[2020-08-04] MEDS: Montelukast Sodium 10 mg Tablet PO SCH (20:38)
[2020-08-04] MEDS: Atorvastatin Calcium 10 MG TAB PO SCH (20:39)
[2020-08-04] MEDS: Dexamethasone 4 mg/ml Vial SLOW IVP SCH (20:40)
[2020-08-04] MEDS: Donepezil HCl 10 MG TAB PO SCH (20:40)
[2020-08-04] MEDS: Famotidine/PF 20 mg/2ml Vial SLOW IVP SCH (20:40)
[2020-08-05] MEDS: PROVENTIL INHALER 6.7 G (200 INHALATIONS) INH SCH ×6 (02:24→20:02)
[2020-08-05] MEDS: Ipratropium/Albuterol Sulfate 4 GM AER IH SCH ×4 (02:24→16:29)
--- NOTE | 2020-08-05 05:32 | PDOC.FM ---
- Subjective Subjective: Per nursing, pt did fair overnight. He still lacks the coordination for inhaler use. - Objective MAR Reviewed: Yes Vital Signs & Weight: Vital Signs (12 hours) Temp Pulse Resp BP Pulse Ox 08/05/20 05:02 93 L 08/05/20 03:23 98.1 F 58 L 20 154/74 H 93 L 08/05/20 00:00 98.5 F 61 20 153/63 H 92 L 08/04/20 22:45 60 18 154/68 H 95 08/04/20 20:00 98.4 F 68 20 178/84 H 97 Weight Admit Weight 72.121 kg Weight 72.121 kg I&O: 08/03/20 08/04/20 08/05/20 06:59 06:59 06:59 Intake Total 2890 1750 500 Balance 2890 1750 500 Result Diagrams: 08/05/20 05:54 08/05/20 05:54 Phys Exam - Physical Examination Resting Dry mm Neck: no JVD Coarse lung sounds, no wheezing Cardiovascular: RRR, no significant murmur Gastrointestinal: soft, non-tender, no distention Musculoskeletal: no edema, pulses present Neurological: moves all 4 limbs Skin: cap refill <2 seconds Dx/Plan - Plan Plan: Acute hypoxic respiratory failure 2/2 COVID PNA -Start of COVID symptoms: 07/30/20, Positive test on 08/01/20 -Respiratory support and now requiring HFNC -Dr. Abbasi consulted and starting convalescent plasma and remdesivir -Oral albuterol started given poor coordination for inhalers -Dexamethasone IV -Procal, LDH, ferritin, d-dimer to quantify COVID severity and establish basel ine -Daily CXR Sepsis 2/2 above -Currently on Azithromycin and cefepime -Procal 0.27 -blood and urine cultures from [facility]--both neg Acute metabolic encephalopathy likely 2/2 above -Continue home medications for Alzheimer's -Treat Sepsis -CT brain negative CKD 3 -Appears stable Pancytopenia -Will monitor Lactic acidosis, resolved Elevated troponin, likely 2/2 stress Atrial fibrillation -Continue home eliquis, metoprolol, and digoxin -Currently rate controlled. Levels appeared subtherapeutic at 0.50, repeating level this AM COPD -Will treat with Inhalers and steroids. Due to pt's poor cooperation, we will attempt oral albuterol and Singulair to help with breathing GERD -Pepcid IV Alzheimer's dementia -Continue home olanzapine, clonazepam, and donepezil Hx of seizures -Continue home depakote Hx of CVA -Continue home aspirin and atorvastatin Code: DNAR confirmed by pt's daughter MPOA Prophylaxis: Home Eliquis, pepcid Family: Discussed with pt's daughter Opal Delgado, Fluids: SL Diet: Regular diet (thickened textures per speech eval) PCP: Dr. Delarosa Disposition: Worsening, admitted to inpatient on medical unit. Monitor respiratory status. Anticipate discharge 4-5 days, CM consulted for return to alf Addendum - Attending - Attending Attestation Date/Time: 08/05/20 0724 I personally evaluated the patient and discussed the management with Dr. Sheppard. I agree with the History, Examination, Assessment and Plan documented above with any addition or exceptions noted below. Patient continues to require HFNC for oxygenation. He has had some decompensation from his COVID infection. ID on board, currently on Remdesevir and plasma has been ordered. Continue steroids. Patient remains DNAR and will keep family updated.
[2020-08-05 06:06] LABS: #Lymphocytes 0.2 thou/uL (1.20-3.40); #Monocytes 0.2 thou/uL (0.11-0.59); #Neutrophils 2.1 thou/uL (1.40-6.50); %Eosinophils 0.3 % (0.0-10.0); %Lymphocytes 7.3 % (21.0-51.0); %Monocytes 6.4 % (0.0-10.0); %Neutrophils 85.9 % (42.0-75.0); Hemoglobin 8.7 g/dL (14.0-18.0); Mean Corpuscular HGB CONC 33.3 g/dL (32.0-36.0); Mean Corpuscular Hemoglobin 30.9 pg (27.0-31.0); Mean Corpuscular Volume 92.6 fL (78.0-98.0); Mean Platelet Volume 8.4 fL (7.4-10.4); Platelet Count 120 thou/uL (130-400); RBC Distribution Width 14.6 % (11.5-14.5); Red Blood Cell (RBC) Count 2.82 mill/uL (4.70-6.10); White Blood Cell (WBC) Count 2.4 thou/uL (4.8-10.8)
[2020-08-05 06:26] LABS: ALT (SGPT) 11 U/L (8-55); AST (SGOT) 20 U/L (5-34); Albumin 2.9 g/dL (3.4-4.8); Alkaline Phosphatase 81 U/L (40-110); Anion Gap 15 mmol/L (10-20); BUN (Urea Nitrogen) 46 mg/dL (8.4-25.7); Bilirubin, Total 0.5 mg/dL (0.2-1.2); Calc. Creatinine Clearance 41 mL/min (70-130); Calcium 7.8 mg/dL (7.8-10.44); Carbon Dioxide 18 mmol/L (23-31); Chloride 115 mmol/L (98-107); Estimated GFR-MDRD 47; Globulin 2.4 g/dL (2.4-3.5); Glucose 222 mg/dL (83-110); Protein, Total 5.3 g/dL (5.8-8.1); Sodium 144 mmol/L (136-145)
[2020-08-05 06:30] LABS: ALT (SGPT) 9 U/L (8-55); AST (SGOT) 19 U/L (5-34); Albumin 2.8 g/dL (3.4-4.8); Alkaline Phosphatase 81 U/L (40-110); Bilirubin, Direct 0.3 mg/dL (0.1-0.3); Bilirubin, Total 0.4 mg/dL (0.2-1.2); Protein, Total 5.4 g/dL (5.8-8.1)
[2020-08-05] MEDS: clonazePAM 0.5 MG TAB PO SCH ×2 (08:18→19:59)
[2020-08-05] MEDS: Docusate 100 MG CAP PO SCH (08:18)
[2020-08-05] MEDS: Aspirin 81 mg Enteric Coated Tablet PO SCH (08:20)
[2020-08-05] MEDS: Apixaban 2.5 MG TAB PO SCH ×2 (08:20→20:00)
[2020-08-05] MEDS: Furosemide 40 MG TAB PO SCH (08:20)
[2020-08-05] MEDS: Digoxin 0.125 MG TAB PO SCH (08:20)
[2020-08-05] MEDS: Dexamethasone 4 mg/ml Vial SLOW IVP SCH ×2 (08:20→19:58)
[2020-08-05] MEDS: OXcarbazepine 150 MG TAB PO SCH ×2 (08:35→20:00)
--- NOTE | 2020-08-05 10:52 | RAD ---
PORTABLE CHEST: HISTORY: COVID pneumonia. COMPARISON: 08/04/2020 exam. FINDINGS: Heart size is enlarged with internal defibrillator device present. Parenchymal lung changes with mor e extensive infiltrative changes in the left lung are stable. No new findings. IMPRESSION: Stable overall exam. POS: OFF
[2020-08-05] MEDS: Azithromycin 250 MG in Sodium Chloride 0.9% 250 ML 250 ML IVPB SCH (11:35)
[2020-08-05] MEDS: Cefepime 1 GM in Sodium Chloride 0.9% 100 ML IVPB SCH (13:11)
[2020-08-05] MEDS: Lactated Ringer's 1,000 ML IV SCH (13:12)
[2020-08-05] MEDS: REMDESIVIR (EUA) 100 MG in Sodium Chloride 0.9% 250 ML 230 ML IV SCH (17:46)
[2020-08-05] MEDS: Famotidine/PF 20 mg/2ml Vial SLOW IVP SCH (19:58)
[2020-08-05] MEDS: Divalproex Sodium 125 mg Sprinkle Capsule PO SCH (19:58)
[2020-08-05] MEDS: Donepezil HCl 10 MG TAB PO SCH (20:00)
[2020-08-05] MEDS: Montelukast Sodium 10 mg Tablet PO SCH (20:00)
[2020-08-05] MEDS: Atorvastatin Calcium 10 MG TAB PO SCH (20:00)
[2020-08-05] MEDS: OLANZapine 2.5 MG TAB PO SCH (20:00)
[2020-08-06] MEDS: Ipratropium/Albuterol Sulfate 4 GM AER IH SCH ×4 (01:03→20:53)
[2020-08-06] MEDS: Lactated Ringer's 1,000 ML IV SCH ×3 (02:11→22:04)
[2020-08-06] MEDS: PROVENTIL INHALER 6.7 G (200 INHALATIONS) INH SCH ×6 (02:11→22:05)
[2020-08-06] MEDS ORDERED: Haloperidol Lactate 5 MG/ML VIAL SLOW IVP SCH (05:15)
[2020-08-06 05:48] LABS: #Lymphocytes 0.3 thou/uL (1.20-3.40); #Monocytes 0.2 thou/uL (0.11-0.59); #Neutrophils 2.8 thou/uL (1.40-6.50); %Basophils 0.7 % (0.0-1.0); %Eosinophils 0.7 % (0.0-10.0); %Lymphocytes 7.6 % (21.0-51.0); %Monocytes 6.8 % (0.0-10.0); %Neutrophils 84.3 % (42.0-75.0); Hemoglobin 9.3 g/dL (14.0-18.0); Mean Corpuscular Hemoglobin 30.1 pg (27.0-31.0); Mean Corpuscular Volume 97.1 fL (78.0-98.0); Mean Platelet Volume 8.7 fL (7.4-10.4); Platelet Count 141 thou/uL (130-400); RBC Distribution Width 15.3 % (11.5-14.5); White Blood Cell (WBC) Count 3.3 thou/uL (4.8-10.8)
--- NOTE | 2020-08-06 06:00 | PDOC.FM ---
- Subjective Subjective: Patient was laying in bed at the time of evaluation. Patient was mildly tachypneic, but denied any acute overnight events or current issues. Of note, patient was A&Ox1 and it was rather difficult to obtain an HPI and ROS due to the patient's nonsensical and often unprompted answers. - Objective Vital Signs & Weight: Vital Signs (12 hours) Temp Pulse Pulse Resp BP BP Pulse Ox 08/06/20 03:22 97 08/06/20 00:16 97.8 F 59 L 20 155/69 H 93 L 08/05/20 21:42 58 L 18 155/69 H 97 08/05/20 20:25 97.9 F 58 L 18 168/79 H 94 L 08/05/20 20:15 97.5 F L 18 175/76 H 95 Weight Admit Weight 72.121 kg Weight 72.121 kg I&O: 08/04/20 08/05/20 08/06/20 06:59 06:59 06:59 Intake Total 1750 500 240 Balance 1750 500 240 Result Diagrams: 08/06/20 05:32 08/06/20 05:32 Phys Exam - Physical Examination Constitutional: NAD Mildly tachypneic HEENT: moist MMs, sclera anicteric Neck: supple, full ROM Respiratory: no wheezing, no rales, no rhonchi, clear to auscultation bilateral Cardiovascular: no significant murmur, no rub Gastrointestinal: soft, non-tender, no distention, positive bowel sounds Musculoskeletal: no edema, pulses present Neurological: moves all 4 limbs Deviation from normal: A&Ox1 Skin: no rash Dx/Plan (1) Acute respiratory failure with hypoxia Code(s): J96.01 - ACUTE RESPIRATORY FAILURE WITH HYPOXIA Status: Acute (2) COVID-19 Code(s): U07.1 - COVID-19 Status: Acute (3) Seizures Code(s): R56.9 - UNSPECIFIED CONVULSIONS Status: Chronic (4) Pancytopenia Code(s): D61.818 - OTHER PANCYTOPENIA Status: Acute (5) CKD (chronic kidney disease) Code(s): N18.9 - CHRONIC KIDNEY DISEASE, UNSPECIFIED Status: Chronic (6) HLD (hyperlipidemia) Code(s): E78.5 - HYPERLIPIDEMIA, UNSPECIFIED Status: Chronic (7) HTN (hypertension) Code(s): I10 - ESSENTIAL (PRIMARY) HYPERTENSION Status: Chronic (8) Dementia Code(s): F03.90 - UNSPECIFIED DEMENTIA WITHOUT BEHAVIORAL DISTURBANCE Status: Chronic (9) A-fib Code(s): I48.91 - UNSPECIFIED ATRIAL FIBRILLATION Status: Chronic - Plan Plan: Patient is an 80 y/o male with a PMH significant for COPD and Dementia who presents from a [place] for evaluation of worsening cough with increased sputum production, fever, and acute worsening of baseline Dementia. 1. Acute Hypoxic Respiratory Failure, 2/2 COVID PNA -Start of COVID Symptoms: 07/30/20 -Positive Test: 08/01/20 -Respiratory support - now requiring HFNC -Dr. Abbasi (ID): Recommended Convalescent Plasma and Remdesivir, notably high mortality risk -PO Albuterol initiated due to poor coordination for inhalers -Dexamethasone IV -Procal, CRP, LDH, Ferritin, D-Dimer to quantify COVID severity and establish baseline -Daily CXR 2. Sepsis, 2/2 above -Currently on Cefepime - s/p Azithromycin -Procal 0.27 -UCx: Negative -BCx: Negative 3. Acute Metabolic Encephalopathy, 2/2 above -Will treat Sepsis and continue home medication regimen for Alzheimer's -CT Brain: Negative 4. CKD 3 -Stable, will continue to monitor 5. Pancytopenia -Improving, will continue to monitor 6. Elevated Troponin, likely 2/2 stress 7. Atrial Fibrillation -Currently rate controlled. -Will continue home regimens of Eliquis, Metoprolol, and Digoxin 8. COPD -Due to poor cooperation, will attempt to treat with PO Albuterol and Singulair 9. GERD -Famotidine IV 10. Alzheimer's Dementia -Continue home olanzapine, clonazepam, and donepezil 11. Hx of Seizures -Will continue home Depakote regimen 12. Hx of CVA -Will continue home ASA and Atorvastatin Code: DNAR - confirmed with Patient's Daughter (MPOA) PCP: Isaura Diet: Regular w/ Thickened Textures per Speech Therapy Fluids: SL VTE PPx: Home Eliquis GI PPx: Famotidine Social: Will update patient's daughter PRN (Opal Delgado: [phone]) Dispo: Patient is currently admitted to the Medical Floor for ongoing treatment of Acute Hypoxic Respiratory Failure 2/2 COVID-19 Pneumonia. Patient's overall clinical picture is regrettably worsening. Will monitor patient's respiratory status closely and coordinate with Case Management in order to assist with DC planning and hopeful transition back to NH. Expected LOS > 48H. Addendum - Attending - Attending Attestation Date/Time: 08/06/20 4773 I personally evaluated the patient and discussed the management with Dr. Glover. I agree with the History, Examination, Assessment and Plan documented above with any addition or exceptions noted below.
[2020-08-06 06:11] LABS: ALT (SGPT) 10 U/L (8-55); AST (SGOT) 20 U/L (5-34); Albumin 3.1 g/dL (3.4-4.8); Alkaline Phosphatase 86 U/L (40-110); Anion Gap 18 mmol/L (10-20); BUN (Urea Nitrogen) 43 mg/dL (8.4-25.7); Bilirubin, Total 0.5 mg/dL (0.2-1.2); Calc. Creatinine Clearance 47 mL/min (70-130); Calcium 8.3 mg/dL (7.8-10.44); Carbon Dioxide 18 mmol/L (23-31); Chloride 114 mmol/L (98-107); Estimated GFR-MDRD 54; Globulin 2.6 g/dL (2.4-3.5); Glucose 177 mg/dL (83-110); Protein, Total 5.7 g/dL (5.8-8.1); Sodium 146 mmol/L (136-145)
[2020-08-06 06:14] LABS: ALT (SGPT) 10 U/L (8-55); AST (SGOT) 19 U/L (5-34); Albumin 3.1 g/dL (3.4-4.8); Alkaline Phosphatase 86 U/L (40-110); Bilirubin, Direct 0.3 mg/dL (0.1-0.3); Bilirubin, Total 0.5 mg/dL (0.2-1.2); Protein, Total 5.7 g/dL (5.8-8.1)
[2020-08-06] MEDS: Digoxin 0.125 MG TAB PO SCH (08:00)
[2020-08-06] MEDS: clonazePAM 0.5 MG TAB PO SCH ×2 (08:02→22:02)
[2020-08-06] MEDS: Aspirin 81 mg Enteric Coated Tablet PO SCH (08:02)
[2020-08-06] MEDS: OXcarbazepine 150 MG TAB PO SCH ×2 (08:03→22:04)
[2020-08-06] MEDS: Apixaban 2.5 MG TAB PO SCH ×2 (08:04→22:03)
[2020-08-06] MEDS: Dexamethasone 4 mg/ml Vial SLOW IVP SCH ×2 (08:04→21:57)
[2020-08-06] MEDS: Furosemide 40 MG TAB PO SCH (08:04)
[2020-08-06] MEDS: Docusate 100 MG CAP PO SCH (08:04)
--- NOTE | 2020-08-06 08:23 | RAD ---
Chest one view HISTORY: Pneumonia. Follow-up. COMPARISON: 08/05/2020. FINDINGS: Cardiac silhouette is magnified and enlarged. Pulmonary vasculature are unremarkable. Mediastinum is midline with aortic calcification and a multi lead left subclavian cardiac electronic device. Patchy infiltrate throughout the left lung and the right upper lobe similar in appearance to the prio r study. Parenchymal scarring and bulla at the right base is stable. No evidence of pneumothorax. IMPRESSION : Stable radiographic appearance of multifocal COVID pneumonitis.
[2020-08-06] MEDS ORDERED: Senokot 8.6 MG TAB PO PRN (10:28)
[2020-08-06] MEDS: Cefepime 1 GM in Sodium Chloride 0.9% 100 ML IVPB SCH (14:38)
[2020-08-06] MEDS: REMDESIVIR (EUA) 100 MG in Sodium Chloride 0.9% 250 ML 230 ML IV SCH (18:09)
[2020-08-06] MEDS: Famotidine/PF 20 mg/2ml Vial SLOW IVP SCH (21:58)
[2020-08-06] MEDS: Divalproex Sodium 125 mg Sprinkle Capsule PO SCH (21:58)
[2020-08-06] MEDS: Atorvastatin Calcium 10 MG TAB PO SCH (22:01)
[2020-08-06] MEDS: Donepezil HCl 10 MG TAB PO SCH (22:01)
[2020-08-06] MEDS: Montelukast Sodium 10 mg Tablet PO SCH (22:03)
[2020-08-06] MEDS: OLANZapine 2.5 MG TAB PO SCH (22:04)
[2020-08-06] MEDS: hydrOXYzine 25 MG TAB PO PRN (22:10)
[2020-08-07] MEDS: Ipratropium/Albuterol Sulfate 4 GM AER IH SCH ×4 (01:22→18:45)
[2020-08-07] MEDS: Ziprasidone 20 MG VIAL IM PRN (01:31)
[2020-08-07] MEDS ORDERED: Lorazepam 2 MG/ML VIAL SLOW IVP PRN (02:35)
[2020-08-07] MEDS: PROVENTIL INHALER 6.7 G (200 INHALATIONS) INH SCH ×6 (02:59→21:04)
[2020-08-07 06:18] LABS: Band 1 % (5-11); Hemoglobin 9.4 g/dL (14.0-18.0); Hypochromia SLIGHT = 6-15 cells (100X) (0-5/hpf); Lymphocytes 4 % (21-51); MDiff Complete? YES; Mean Corpuscular HGB CONC 31.6 g/dL (32.0-36.0); Mean Corpuscular Hemoglobin 29.7 pg (27.0-31.0); Mean Platelet Volume 8.2 fL (7.4-10.4); Monocytes 4 % (0-10); Neutrophil 91 % (42-75); Nucleated RBC 1 % (0); Platelet Count 178 thou/uL (130-400); Platelet Morphology Comment Appears Adequate; RBC Distribution Width 15.1 % (11.5-14.5); Red Blood Cell (RBC) Count 3.17 mill/uL (4.70-6.10); White Blood Cell (WBC) Count 5.7 thou/uL (4.8-10.8)
[2020-08-07 06:20] LABS: ALT (SGPT) 11 U/L (8-55); AST (SGOT) 18 U/L (5-34); Albumin 3.2 g/dL (3.4-4.8); Alkaline Phosphatase 90 U/L (40-110); Anion Gap 18 mmol/L (10-20); BUN (Urea Nitrogen) 44 mg/dL (8.4-25.7); Bilirubin, Direct 0.4 mg/dL (0.1-0.3); Bilirubin, Total 0.7 mg/dL (0.2-1.2); Calc. Creatinine Clearance 44 mL/min (70-130); Calcium 8.3 mg/dL (7.8-10.44); Carbon Dioxide 20 mmol/L (23-31); Chloride 113 mmol/L (98-107); Estimated GFR-MDRD 50; Globulin 2.5 g/dL (2.4-3.5); Glucose 212 mg/dL (83-110); Protein, Total 5.7 g/dL (5.8-8.1); Sodium 147 mmol/L (136-145)
--- NOTE | 2020-08-07 06:22 | PDOC.FM ---
- Subjective Subjective: Patient was resting comfortably in bed, in no acute cardiopulmonary distress at the time of evaluation. Patient appeared to be at his baseline mentally, and would follow simple commands but was not able participate with a basic ROS. Per the Resident Night Team, patient had an acute episode of agitation overnight that required treatment with his home PRN medication as well as supplementation with a small dose of Lorazepam. - Objective Vital Signs & Weight: Vital Signs (12 hours) Temp Pulse Resp BP Pulse Ox 08/07/20 04:00 97.5 F L 60 18 166/75 H 94 L 08/07/20 03:00 94 L 08/06/20 23:45 60 170/82 H 92 L 08/06/20 20:00 97.5 F L 60 22 H 168/79 H 92 L Weight Admit Weight 72.121 kg Weight 72.121 kg I&O: 08/05/20 08/06/20 08/07/20 06:59 06:59 06:59 Intake Total 010 791 2518 Balance 340 367 9572 Result Diagrams: 08/07/20 05:49 08/07/20 05:49 Phys Exam - Physical Examination Constitutional: NAD HEENT: moist MMs, oral pharynx no lesions Neck: supple, full ROM Respiratory: no rales, no rhonchi Mild expiratory wheezes Cardiovascular: RRR, no significant murmur, no rub Gastrointestinal: soft, non-tender, no distention, positive bowel sounds Musculoskeletal: no edema, pulses present Neurological: non-focal, moves all 4 limbs Deviation from normal: Unable to complete exam Dx/Plan (1) Acute respiratory failure with hypoxia Code(s): J96.01 - ACUTE RESPIRATORY FAILURE WITH HYPOXIA Status: Acute (2) COVID-19 Code(s): U07.1 - COVID-19 Status: Acute (3) Seizures Code(s): R56.9 - UNSPECIFIED CONVULSIONS Status: Chronic (4) Pancytopenia Code(s): D61.818 - OTHER PANCYTOPENIA Status: Acute (5) CKD (chronic kidney disease) Code(s): N18.9 - CHRONIC KIDNEY DISEASE, UNSPECIFIED Status: Chronic (6) HLD (hyperlipidemia) Code(s): E78.5 - HYPERLIPIDEMIA, UNSPECIFIED Status: Chronic (7) HTN (hypertension) Code(s): I10 - ESSENTIAL (PRIMARY) HYPERTENSION Status: Chronic (8) Dementia Code(s): F03.90 - UNSPECIFIED DEMENTIA WITHOUT BEHAVIORAL DISTURBANCE Status: Chronic (9) A-fib Code(s): I48.91 - UNSPECIFIED ATRIAL FIBRILLATION Status: Chronic - Plan Plan: Patient is an 80 y/o male with a PMH significant for COPD and Dementia who presents from a [place] for evaluation of worsening cough with increased sputum production, fever, and acute worsening of baseline Dementia. 1. Acute Hypoxic Respiratory Failure, 2/2 COVID PNA -Start of COVID Symptoms: 07/30/20 -Positive Test: 08/01/20 -Currently on HFNC 50%/50L -Dr. Abbasi (ID): Recommended Convalescent Plasma and Remdesivir, notably high mortality risk -PO Albuterol initiated due to poor coordination for inhalers -Dexamethasone IV -Review of Procal, CRP, LDH, Ferritin, D-Dimer to quantify COVID severity and establish baseline revealed only an elevation of CRP (7.59) -Will perform serial CXRs to evaluation for worsening of multifocal infiltrates 2. Sepsis, 2/2 above -s/p Cefepime, Azithromycin -Procal 0.27 > downtrending -UCx: Negative -BCx: Negative 3. Acute Metabolic Encephalopathy, 2/2 above -Sepsis treated - will continue home medication regimen for Alzheimer's -CT Brain: Negative 4. CKD 3 -Stable, will continue to monitor 5. Pancytopenia -Improving, will continue to monitor 6. Elevated Troponin, likely 2/2 stress 7. Atrial Fibrillation -Currently rate controlled. -Will continue home regimens of Eliquis, Metoprolol, and Digoxin 8. COPD -Due to poor cooperation, will attempt to treat with PO Albuterol and Singulair 9. GERD -Famotidine IV 10. Alzheimer's Dementia -Will continue home regimen of Olanzapine, Clonazepam and Donepezil 11. Hx of Seizures -Will continue home Depakote regimen 12. Hx of CVA -Will continue home ASA and Atorvastatin Code: DNAR - confirmed with Patient's Daughter (MPOA) PCP: Isaura Diet: Regular w/ Thickened Textures per Speech Therapy Fluids: SL VTE PPx: Home Eliquis GI PPx: Famotidine Social: Will update patient's daughter PRN (Opal Danny: [phone]) Dispo: Patient is currently admitted to the Medical Floor for ongoing treatment of Acute Hypoxic Respiratory Failure 2/2 COVID-19 Pneumonia. Patient's overall clinical picture is stable but regrettably unfavorable with regards to high risk of mortality. Will monitor patient's respiratory status closely and coordinate with Case Management in order to assist with DC planning and hopeful transition back to [place]. Expected LOS > 48H. Addendum - Attending - Attending Attestation Date/Time: 08/07/20 2217 I personally evaluated the patient and discussed the management with Dr. Glover. I agree with the History, Examination, Assessment and Plan documented above with any addition or exceptions noted below. Continue treatment for COVID. Still on HFNC, having some issues with agitation. ID on board. Family conversation regarding prognosis and goals of care.
--- NOTE | 2020-08-07 08:57 | RAD ---
PORTABLE CHEST: Date: 08/07/2020 HISTORY: COVID pneumonia. COMPARISON: 08/06/2020. FINDINGS: Confluent infiltrate in the left mid lung is again seen without significant change. Hazy infiltrate i n the peripheral left lung and hazy infiltrate in the right lower lung and probable right upper lung. Atelectatic changes in the right mid lung. Apparent skin fold overlying the right upper lung is neto lar to yesterday. IMPRESSION: Bilateral infiltrates. The right lower lung infiltrates are more pronounced on the current study. POS: AGW
[2020-08-07] MEDS: clonazePAM 0.5 MG TAB PO SCH ×2 (10:06→20:20)
[2020-08-07] MEDS: Docusate 100 MG CAP PO SCH (10:08)
[2020-08-07] MEDS: Apixaban 2.5 MG TAB PO SCH ×2 (10:08→20:18)
[2020-08-07] MEDS: Aspirin 81 mg Enteric Coated Tablet PO SCH (10:09)
[2020-08-07] MEDS: Furosemide 40 MG TAB PO SCH (10:09)
[2020-08-07] MEDS: Digoxin 0.125 MG TAB PO SCH (10:10)
[2020-08-07] MEDS: OXcarbazepine 150 MG TAB PO SCH ×2 (10:10→20:21)
[2020-08-07] MEDS: Dexamethasone 4 mg/ml Vial SLOW IVP SCH ×2 (10:13→20:20)
[2020-08-07] MEDS: Lactated Ringer's 1,000 ML IV SCH (10:21)
[2020-08-07] MEDS: Dextrose 5% in Water 1,000 ML IV SCH ×3 (15:19→23:58)
[2020-08-07] MEDS: REMDESIVIR (EUA) 100 MG in Sodium Chloride 0.9% 250 ML 230 ML IV SCH (18:12)
[2020-08-07 18:24] LABS: Anion Gap 17 mmol/L (10-20); BUN (Urea Nitrogen) 45 mg/dL (8.4-25.7); Calc. Creatinine Clearance 42 mL/min (70-130); Calcium 8.4 mg/dL (7.8-10.44); Carbon Dioxide 20 mmol/L (23-31); Chloride 112 mmol/L (98-107); Estimated GFR-MDRD 48; Glucose 266 mg/dL (83-110); Potassium 4.2 mmol/L (3.5-5.1); Sodium 145 mmol/L (136-145)
[2020-08-07] MEDS: Atorvastatin Calcium 10 MG TAB PO SCH (20:18)
[2020-08-07] MEDS: Divalproex Sodium 125 mg Sprinkle Capsule PO SCH (20:20)
[2020-08-07] MEDS: Montelukast Sodium 10 mg Tablet PO SCH (20:21)
[2020-08-07] MEDS: Donepezil HCl 10 MG TAB PO SCH (20:21)
[2020-08-07] MEDS: OLANZapine 2.5 MG TAB PO SCH (20:21)
[2020-08-07] MEDS: Famotidine/PF 20 mg/2ml Vial SLOW IVP SCH (20:21)
[2020-08-07 22:50] LABS: Anion Gap 16 mmol/L (10-20); BUN (Urea Nitrogen) 45 mg/dL (8.4-25.7); Calc. Creatinine Clearance 44 mL/min (70-130); Calcium 8.1 mg/dL (7.8-10.44); Carbon Dioxide 20 mmol/L (23-31); Chloride 111 mmol/L (98-107); Estimated GFR-MDRD 50; Glucose 229 mg/dL (83-110); Potassium 3.9 mmol/L (3.5-5.1); Sodium 143 mmol/L (136-145)
[2020-08-08] MEDS: hydrOXYzine 25 MG TAB PO PRN (00:01)
[2020-08-08] MEDS: Ipratropium/Albuterol Sulfate 4 GM AER IH SCH ×4 (00:02→19:59)
[2020-08-08] MEDS: PROVENTIL INHALER 6.7 G (200 INHALATIONS) INH SCH ×6 (03:15→23:25)
[2020-08-08] MEDS: Dextrose 5% in Water 1,000 ML IV SCH (04:33)
--- NOTE | 2020-08-08 05:38 | PDOC.FM ---
- Subjective Subjective: Patient was laying in bed in soft restraints at the time of evaluation. Patient was able to follow some simple commands and respond in "Yes" or "No" to simple questioning, but was otherwise uncooperative with the ROS - this appears to be the patient's baseline. - Objective Vital Signs & Weight: Vital Signs (12 hours) Temp Pulse Resp BP Pulse Ox 08/08/20 04:11 92 L 08/08/20 00:00 97.6 F 64 24 H 165/79 H 91 L 08/07/20 20:00 97.7 F 62 22 H 150/65 H 94 L Weight Admit Weight 72.121 kg Weight 72.121 kg I&O: 08/06/20 08/07/20 08/08/20 06:59 06:59 06:59 Intake Total 240 1450 400 Balance 240 1450 400 Result Diagrams: 08/08/20 05:22 08/08/20 05:22 Phys Exam - Physical Examination Constitutional: NAD HEENT: moist MMs, oral pharynx no lesions Neck: supple, full ROM Respiratory: no wheezing, no rales, no rhonchi, clear to auscultation bilateral Cardiovascular: RRR, no significant murmur, no rub Gastrointestinal: soft, non-tender, no distention, positive bowel sounds Musculoskeletal: no edema, pulses present Deviation from normal: Unable to complete exam Deviation from normal: Mild oozing noted on sheets around left elbow - bandage in place Dx/Plan (1) Acute respiratory failure with hypoxia Code(s): J96.01 - ACUTE RESPIRATORY FAILURE WITH HYPOXIA Status: Acute (2) COVID-19 Code(s): U07.1 - COVID-19 Status: Acute (3) Seizures Code(s): R56.9 - UNSPECIFIED CONVULSIONS Status: Chronic (4) Pancytopenia Code(s): D61.818 - OTHER PANCYTOPENIA Status: Acute (5) CKD (chronic kidney disease) Code(s): N18.9 - CHRONIC KIDNEY DISEASE, UNSPECIFIED Status: Chronic (6) HLD (hyperlipidemia) Code(s): E78.5 - HYPERLIPIDEMIA, UNSPECIFIED Status: Chronic (7) HTN (hypertension) Code(s): I10 - ESSENTIAL (PRIMARY) HYPERTENSION Status: Chronic (8) Dementia Code(s): F03.90 - UNSPECIFIED DEMENTIA WITHOUT BEHAVIORAL DISTURBANCE Status: Chronic (9) A-fib Code(s): I48.91 - UNSPECIFIED ATRIAL FIBRILLATION Status: Chronic - Plan Plan: Patient is an 80 y/o male with a PMH significant for COPD and Dementia who presents from a [place] for evaluation of worsening cough with increased sputum production, fever, and acute worsening of baseline Dementia. 1. Acute Hypoxic Respiratory Failure, 2/2 COVID PNA -Start of COVID Symptoms: 07/30/20 -Positive Test: 08/01/20 -Currently on HFNC 50%/49L -Dr. Abbasi (ID): Consulted, recommended Convalescent Plasma and Remdesivir, notably high mortality risk -PO Albuterol initiated due to poor coordination for inhalers -Dexamethasone IV -Review of Procal, CRP, LDH, Ferritin, D-Dimer to quantify COVID severity and establish baseline revealed only an elevation of CRP (7.59) -Will perform serial CXRs to evaluation for worsening of multifocal infiltrates 2. Sepsis, 2/2 above -s/p Cefepime, Azithromycin -Procal 0.27 > downtrending -UCx: Negative -BCx: Negative 3. Acute Metabolic Encephalopathy, 2/2 above -Sepsis treated - will continue home medication regimen for Alzheimer's -CT Brain: Negative 4. CKD 3 -Stable, will continue to monitor 5. Pancytopenia -Improving, will continue to monitor 6. Elevated Troponin, likely 2/2 stress 7. Atrial Fibrillation -Currently rate controlled. -Will continue home regimens of Eliquis, Metoprolol, and Digoxin 8. COPD -Due to poor cooperation, will attempt to treat with PO Albuterol and Singulair 9. GERD -Famotidine IV 10. Alzheimer's Dementia -Will continue home regimen of Olanzapine, Clonazepam and Donepezil 11. Hx of Seizures -Will continue home Depakote regimen 12. Hx of CVA -Will continue home ASA and Atorvastatin 13. HTN -Will continue patient's home medication regimen and augment as needed Code: DNAR - confirmed with Patient's Daughter (MPOA) PCP: Isaura Diet: Regular w/ Thickened Textures per Speech Therapy Fluids: D5W @ 3 ml/kg/hr - Will likely DC today and switch to LR VTE PPx: Home Eliquis GI PPx: Famotidine Social: Will update patient's daughter PRN (Opal Delgado: [phone]) Dispo: Patient is currently admitted to the Medical Floor for ongoing treatment of Acute Hypoxic Respiratory Failure 2/2 COVID-19 Pneumonia. Patient's overall clinical picture is stable but regrettably unfavorable with regards to high risk of mortality. Will monitor patient's respiratory status closely and coordinate with Case Management in order to assist with DC planning and hopeful transition back to [place]. Currently being fluid resuscitated with D5W due to Hypernatremia and a subsequent free water deficit. Will also attempt to gain better control of BP this AM. Will also consult Wound Care and request low-pressure/waffle mattress to reduce incidence of pressure ulcer formation due to prolonged immobility secondary to patient's Alzheimer's Dementia. Expected LOS > 48H. Addendum - Attending - Attending Attestation Date/Time: 08/08/20 5802 I personally evaluated the patient and discussed the management with Dr. Glover. I agree with the History, Examination, Assessment and Plan documented above with any addition or exceptions noted below. Patient overall stable. Continue Remdesevir, steroids for COVID. Continues on HFNC. No agitation overnight. Free water deficit corrected but will need to ensure he is having adequate PO intake.
[2020-08-08 06:06] LABS: ALT (SGPT) 10 U/L (8-55); AST (SGOT) 17 U/L (5-34); Alkaline Phosphatase 83 U/L (40-110); Anion Gap 19 mmol/L (10-20); BUN (Urea Nitrogen) 43 mg/dL (8.4-25.7); Bilirubin, Direct 0.4 mg/dL (0.1-0.3); Bilirubin, Total 0.7 mg/dL (0.2-1.2); Calc. Creatinine Clearance 44 mL/min (70-130); Calcium 7.8 mg/dL (7.8-10.44); Carbon Dioxide 18 mmol/L (23-31); Chloride 108 mmol/L (98-107); Estimated GFR-MDRD 50; Globulin 2.3 g/dL (2.4-3.5); Glucose 319 mg/dL (83-110); Potassium 3.8 mmol/L (3.5-5.1); Protein, Total 5.3 g/dL (5.8-8.1); Sodium 141 mmol/L (136-145)
[2020-08-08 06:28] LABS: Band 11 % (5-11); Hemoglobin 8.5 g/dL (14.0-18.0); Lymphocytes 10 % (21-51); MDiff Complete? YES; Mean Corpuscular HGB CONC 31.7 g/dL (32.0-36.0); Mean Corpuscular Hemoglobin 30.3 pg (27.0-31.0); Mean Corpuscular Volume 95.6 fL (78.0-98.0); Mean Platelet Volume 7.8 fL (7.4-10.4); Monocytes 5 % (0-10); Neutrophil 74 % (42-75); Nucleated RBC 1 % (0); Platelet Count 191 thou/uL (130-400); Platelet Morphology Comment Appears Adequate; RBC Distribution Width 14.9 % (11.5-14.5)
--- NOTE | 2020-08-08 08:45 | RAD ---
PORTABLE CHEST: Date: 08/08/2020 HISTORY: COVID pneumonia. COMPARISON: 08/07/2020. FINDINGS: Hazy alveolar infiltrate in the left perihilar region and left upper lung again noted. Also hazy infi ltrate in the right upper lobe and probably right lower lobe as well. There are small bilateral effus ions, slightly larger on the left. ICD leads are unchanged. IMPRESSION: Bilateral infiltrates, not significantly changed from yesterday considering differences in exposure. POS: AGW
[2020-08-08] MEDS: Docusate 100 MG CAP PO SCH (09:15)
[2020-08-08] MEDS: Digoxin 0.125 MG TAB PO SCH (09:15)
[2020-08-08] MEDS: Aspirin 81 mg Enteric Coated Tablet PO SCH (09:16)
[2020-08-08] MEDS: Furosemide 40 MG TAB PO SCH (09:16)
[2020-08-08] MEDS: Apixaban 2.5 MG TAB PO SCH ×2 (09:16→20:00)
[2020-08-08] MEDS: OXcarbazepine 150 MG TAB PO SCH ×2 (09:17→20:05)
[2020-08-08] MEDS: Dexamethasone 4 mg/ml Vial SLOW IVP SCH ×2 (09:19→20:01)
[2020-08-08] MEDS: clonazePAM 0.5 MG TAB PO SCH ×2 (09:23→20:00)
[2020-08-08] MEDS: Lactated Ringer's 1,000 ML IV SCH ×3 (10:35→23:45)
--- NOTE | 2020-08-08 16:31 | PRG ---
DATE OF SERVICE: 08/08/2020 SUBJECTIVE: Mr. Garduno is confused, unable to provide review of systems, intermittently in restraints because of agitation. OBJECTIVE: VITAL SIGNS: His temperature has been normal, respiratory rate anywhere from 19 to 21, O2 saturations ranging from 91% to 94% on high-flow nasal cannula O2 at a flow rate of 50, BP 160/75. GENERAL: He is agitated, kind of confused. NECK: Supple. LUNGS: Symmetric air entry with no crackles or wheezing. HEART: S1 and S2, regular rate. ABDOMEN: Soft, not distended. EXTREMITIES: He seems to be able to move all extremities. LABORATORY DATA: White cell count 6.0, hemoglobin 8.5, platelets 191 with a normal differential. D-dimer 0.66. Ferritin was checked on admission and it was 170. The CRP was checked on admission and it was 7.59. It needs to be repeated. Currently, he is receiving albuterol, Decadron, and Depakote; finishing of his remdesivir. Chest x-ray today, another film was taken and showed bilateral infiltrates without change considering the exposure. ASSESSMENT AND DISCUSSION: Cardiomyopathy, automatic implantable cardioverter defibrillator, multi-infarct dementia, hypoxemia, bilateral infiltrates, positive SARS-CoV-2 PCR test. The patient is with severe pneumonia with high mortality score of at least 60%, to be continued on Decadron and remdesivir. Job ID: [id number]
[2020-08-08] MEDS: REMDESIVIR (EUA) 100 MG in Sodium Chloride 0.9% 250 ML 230 ML IV SCH (17:31)
[2020-08-08] MEDS: Atorvastatin Calcium 10 MG TAB PO SCH (20:00)
[2020-08-08] MEDS: Donepezil HCl 10 MG TAB PO SCH (20:03)
[2020-08-08] MEDS: Famotidine/PF 20 mg/2ml Vial SLOW IVP SCH (20:03)
[2020-08-08] MEDS: Divalproex Sodium 125 mg Sprinkle Capsule PO SCH (20:03)
[2020-08-08] MEDS: Montelukast Sodium 10 mg Tablet PO SCH (20:03)
[2020-08-08] MEDS: OLANZapine 2.5 MG TAB PO SCH (20:05)
[2020-08-09] MEDS: Ipratropium/Albuterol Sulfate 4 GM AER IH SCH ×4 (00:02→19:23)
[2020-08-09] MEDS: PROVENTIL INHALER 6.7 G (200 INHALATIONS) INH SCH ×6 (00:03→23:41)
[2020-08-09] MEDS: hydrOXYzine 25 MG TAB PO PRN (00:13)
[2020-08-09] MEDS: Lactated Ringer's 1,000 ML IV SCH ×4 (00:15→21:07)
[2020-08-09 06:51] LABS: #Lymphocytes 0.4 thou/uL (1.20-3.40); #Monocytes 0.5 thou/uL (0.11-0.59); #Neutrophils 5.1 thou/uL (1.40-6.50); %Eosinophils 0.2 % (0.0-10.0); %Lymphocytes 6.1 % (21.0-51.0); %Monocytes 8.1 % (0.0-10.0); %Neutrophils 85.6 % (42.0-75.0); Hemoglobin 8.4 g/dL (14.0-18.0); Mean Corpuscular HGB CONC 31.4 g/dL (32.0-36.0); Mean Corpuscular Hemoglobin 29.9 pg (27.0-31.0); Mean Platelet Volume 8.1 fL (7.4-10.4); Platelet Count 213 thou/uL (130-400); RBC Distribution Width 14.9 % (11.5-14.5); Red Blood Cell (RBC) Count 2.81 mill/uL (4.70-6.10); White Blood Cell (WBC) Count 5.9 thou/uL (4.8-10.8)
--- NOTE | 2020-08-09 07:06 | PDOC.FM ---
- Subjective Subjective: Patient was laying in bed in soft restraints at the time of evaluation, with no evidence of acute cardiopulmonary distress. Patient continues to remain confused and was unable to provide an ROS, which appears to be his baseline. Of note, the hospital EMR was unavailable prior to the evaluation and vital signs could not be reviewed appropriately. However, there were no issues reported by the Resident Night Team or the Nursing Staff. - Objective Vital Signs & Weight: Vital Signs (12 hours) Temp Pulse Resp BP Pulse Ox 08/09/20 04:00 97.9 F 60 20 159/71 H 93 L 08/08/20 23:30 97.4 F L 62 20 155/78 H 95 08/08/20 20:00 97.6 F 61 20 144/73 H 94 L Weight Admit Weight 72.121 kg Weight 72.121 kg I&O: 08/08/20 08/09/20 08/10/20 06:59 06:59 06:59 Intake Total 3110 1565 Balance 3110 1565 Result Diagrams: 08/09/20 06:12 08/09/20 06:12 Phys Exam - Physical Examination Constitutional: NAD HEENT: moist MMs, oral pharynx no lesions Neck: supple, full ROM Respiratory: no wheezing, no rales, no rhonchi, clear to auscultation bilateral Cardiovascular: RRR, no significant murmur, no rub Gastrointestinal: soft, non-tender, no distention, positive bowel sounds Musculoskeletal: no edema, pulses present Neurological: non-focal, moves all 4 limbs Deviation from normal: Unable to complete exam Deviation from normal: Stable skin tear on LUE - no bleeding noted Dx/Plan (1) Acute respiratory failure with hypoxia Code(s): J96.01 - ACUTE RESPIRATORY FAILURE WITH HYPOXIA Status: Acute (2) COVID-19 Code(s): U07.1 - COVID-19 Status: Acute (3) Seizures Code(s): R56.9 - UNSPECIFIED CONVULSIONS Status: Chronic (4) Pancytopenia Code(s): D61.818 - OTHER PANCYTOPENIA Status: Acute (5) CKD (chronic kidney disease) Code(s): N18.9 - CHRONIC KIDNEY DISEASE, UNSPECIFIED Status: Chronic (6) HLD (hyperlipidemia) Code(s): E78.5 - HYPERLIPIDEMIA, UNSPECIFIED Status: Chronic (7) HTN (hypertension) Code(s): I10 - ESSENTIAL (PRIMARY) HYPERTENSION Status: Chronic (8) Dementia Code(s): F03.90 - UNSPECIFIED DEMENTIA WITHOUT BEHAVIORAL DISTURBANCE Status: Chronic (9) A-fib Code(s): I48.91 - UNSPECIFIED ATRIAL FIBRILLATION Status: Chronic - Plan Plan: Patient is an 80 y/o male with a PMH significant for COPD and Dementia who presents from a [place] for evaluation of worsening cough with increased sputum production, fever, and acute worsening of baseline Dementia. 1. Acute Hypoxic Respiratory Failure, 2/2 COVID PNA -Start of COVID Symptoms: 07/30/20 -Positive Test: 08/01/20 -Currently on HFNC 50%/49L -Dr. Abbasi (ID): Consulted, recommended Convalescent Plasma and Remdesivir, notably high mortality risk -PO Albuterol initiated due to poor coordination for inhalers -Dexamethasone IV -Review of Procal, CRP, LDH, Ferritin, D-Dimer to quantify COVID severity and establish baseline revealed only an elevation of CRP (7.59) -Will perform serial CXRs to evaluation for worsening of multifocal infiltrates 2. Sepsis, 2/2 above -s/p Cefepime, Azithromycin -Procal 0.27 > downtrending -UCx: Negative -BCx: Negative 3. Acute Metabolic Encephalopathy, 2/2 above -Sepsis treated - will continue home medication regimen for Alzheimer's -CT Brain: Negative 4. CKD 3 -Stable, will continue to monitor 5. Pancytopenia -Improving, will continue to monitor 6. Elevated Troponin, likely 2/2 stress 7. Atrial Fibrillation -Currently rate controlled -Will continue home regimens of Eliquis, Metoprolol, and Digoxin 8. COPD -Due to poor cooperation, will attempt to treat with PO Albuterol and Singulair 9. GERD -Famotidine IV 10. Alzheimer's Dementia -Will continue home regimen of Olanzapine, Clonazepam and Donepezil 11. Hx of Seizures -Will continue home Depakote regimen 12. Hx of CVA -Will continue home ASA and Atorvastatin 13. HTN -Will continue patient's home medication regimen and augment as needed Code: DNAR - confirmed with Patient's Daughter (MPOA) PCP: Amandamardo Diet: Regular w/ Thickened Textures per Speech Therapy Fluids: LR @ 115 ml/hr VTE PPx: Home Eliquis GI PPx: Famotidine Social: Will update patient's daughter PRN (Opal Delgado: [phone]) Dispo: Patient is currently admitted to the Medical Floor for ongoing treatment of Acute Hypoxic Respiratory Failure 2/2 COVID-19 Pneumonia. Patient's overall clinical picture is stable but regrettably unfavorable with regards to high risk of mortality. Will monitor patient's respiratory status closely and coordinate with Case Management in order to assist with DC planning and hopeful transition back to NH. s/p correction of free water deficit - will continue to trend AM Labs. Wound Care consulted for LUE skin tear, Nursing Staff will continue to manage - confirmed ongoing use low-pressure/waffle mattress to reduce incidence of pressure ulcer this AM. Will start Lantus 10u SC QAM and monitor Hyperglycemia secondary to prolonged steroid use. Expected LOS > 48H. Addendum - Attending - Attending Attestation Date/Time: 08/09/20 7162 I personally evaluated the patient and discussed the management with Dr. Glover. I agree with the History, Examination, Assessment and Plan documented above with any addition or exceptions noted below.
[2020-08-09 07:12] LABS: Anion Gap 15 mmol/L (10-20); BUN (Urea Nitrogen) 41 mg/dL (8.4-25.7); Calc. Creatinine Clearance 51 mL/min (70-130); Calcium 7.8 mg/dL (7.8-10.44); Carbon Dioxide 20 mmol/L (23-31); Chloride 109 mmol/L (98-107); Estimated GFR-MDRD 59; Glucose 179 mg/dL (83-110); Potassium 4.2 mmol/L (3.5-5.1); Sodium 140 mmol/L (136-145)
[2020-08-09] MEDS ORDERED: Dextrose 5% in Water 1,000 ML IV PRN (07:30)
--- NOTE | 2020-08-09 07:53 | RAD ---
CHEST 1 VIEW: INDICATION: History of COVID-19 pneumonia. COMPARISON: Prior exam dated 08/08/2020. FINDINGS: Multifocal pneumonia is stable. Small left pleural effusion persists. Cardiomegaly is stable. AICD is unchanged. Osseous structures are stable. IMPRESSION: Stable exam. POS: BH
[2020-08-09] MEDS: Insulin Glargine 10 UNITS in Pre-Filled Syringe 1 EACH SC SCH (09:47)
[2020-08-09] MEDS: Apixaban 2.5 MG TAB PO SCH ×2 (09:48→21:08)
[2020-08-09] MEDS: Dexamethasone 4 mg/ml Vial SLOW IVP SCH ×2 (09:49→21:09)
[2020-08-09] MEDS: clonazePAM 0.5 MG TAB PO SCH ×2 (09:49→21:09)
[2020-08-09] MEDS: Digoxin 0.125 MG TAB PO SCH (09:49)
[2020-08-09] MEDS: Docusate 100 MG CAP PO SCH (09:49)
[2020-08-09] MEDS: Furosemide 40 MG TAB PO SCH (09:49)
[2020-08-09] MEDS: Aspirin 81 mg Enteric Coated Tablet PO SCH (09:49)
[2020-08-09] MEDS: OXcarbazepine 150 MG TAB PO SCH ×2 (09:54→21:10)
[2020-08-09] MEDS: Atorvastatin Calcium 10 MG TAB PO SCH (21:08)
[2020-08-09] MEDS: Divalproex Sodium 125 mg Sprinkle Capsule PO SCH (21:09)
[2020-08-09] MEDS: Donepezil HCl 10 MG TAB PO SCH (21:10)
[2020-08-09] MEDS: Famotidine/PF 20 mg/2ml Vial SLOW IVP SCH (21:10)
[2020-08-09] MEDS: Montelukast Sodium 10 mg Tablet PO SCH (21:10)
[2020-08-09] MEDS: OLANZapine 2.5 MG TAB PO SCH (21:10)
[2020-08-10] MEDS: PROVENTIL INHALER 6.7 G (200 INHALATIONS) INH SCH ×6 (01:23→23:22)
[2020-08-10] MEDS: Ipratropium/Albuterol Sulfate 4 GM AER IH SCH ×4 (01:23→18:42)
[2020-08-10] MEDS: Lactated Ringer's 1,000 ML IV SCH ×3 (04:34→21:46)
--- NOTE | 2020-08-10 05:01 | PDOC.FM ---
- Subjective Subjective: Patient was laying in bed in soft restraints at the time of evaluation, with no evidence of acute cardiopulmonary distress. Patient continues to remain confused and was unable to provide an ROS, which appears to be his baseline. No acute overnight events were reported by the Resident Night Team or Nursing Staff. - Objective Vital Signs & Weight: Vital Signs (12 hours) Temp Pulse Resp BP Pulse Ox 08/09/20 23:55 62 22 H 93 L 08/09/20 20:00 97.6 F 60 20 149/77 H 96 Weight Admit Weight 72.121 kg Weight 72.121 kg I&O: 08/08/20 08/09/20 08/10/20 06:59 06:59 06:59 Intake Total 3110 1565 120 Balance 3110 1565 120 Result Diagrams: 08/10/20 06:06 08/10/20 06:06 Phys Exam - Physical Examination Constitutional: NAD HEENT: moist MMs, oral pharynx no lesions Neck: supple, full ROM Respiratory: no wheezing, no rales, no rhonchi, clear to auscultation bilateral Cardiovascular: RRR, no significant murmur, no rub Gastrointestinal: soft, non-tender, no distention, positive bowel sounds Musculoskeletal: no edema, pulses present Neurological: non-focal, moves all 4 limbs Deviation from normal: Unable to complete exam Deviation from normal: No active bleeding noted from LUE Dx/Plan (1) Acute respiratory failure with hypoxia Code(s): J96.01 - ACUTE RESPIRATORY FAILURE WITH HYPOXIA Status: Acute (2) COVID-19 Code(s): U07.1 - COVID-19 Status: Acute (3) Seizures Code(s): R56.9 - UNSPECIFIED CONVULSIONS Status: Chronic (4) Pancytopenia Code(s): D61.818 - OTHER PANCYTOPENIA Status: Acute (5) CKD (chronic kidney disease) Code(s): N18.9 - CHRONIC KIDNEY DISEASE, UNSPECIFIED Status: Chronic (6) HLD (hyperlipidemia) Code(s): E78.5 - HYPERLIPIDEMIA, UNSPECIFIED Status: Chronic (7) HTN (hypertension) Code(s): I10 - ESSENTIAL (PRIMARY) HYPERTENSION Status: Chronic (8) Dementia Code(s): F03.90 - UNSPECIFIED DEMENTIA WITHOUT BEHAVIORAL DISTURBANCE Status: Chronic (9) A-fib Code(s): I48.91 - UNSPECIFIED ATRIAL FIBRILLATION Status: Chronic - Plan Plan: Patient is an 80 y/o male with a PMH significant for COPD and Dementia who presents from a [place] for evaluation of worsening cough with increased sputum produ ction, fever, and acute worsening of baseline Dementia. 1. Acute Hypoxic Respiratory Failure, 2/2 COVID PNA -Start of COVID Symptoms: 07/30/20 -Positive Test: 08/01/20 -Currently on HFNC 50%/50L -Dr. Abbasi (ID): Consulted, recommended Convalescent Plasma and Remdesivir, notably high mortality risk -s/p Azithromycin, Remdesivir and Convalescent Plasma -Dexamethasone 6 mg IV BID -PO Albuterol initiated due to poor coordination for inhalers -Review of Procal, CRP, LDH, Ferritin, D-Dimer to quantify COVID severity and establish baseline revealed only an elevation of CRP (7.59) -Will perform serial CXRs to evaluation for worsening of multifocal infiltrates 2. Sepsis, 2/2 above -s/p Cefepime, Azithromycin -Procal 0.27 > downtrending -UCx: Negative -BCx: Negative 3. Acute Metabolic Encephalopathy, 2/2 above -Sepsis treated - will continue home medication regimen for Alzheimer's -CT Brain: Negative 4. CKD 3 -Stable, will continue to monitor 5. Pancytopenia -Improving, will continue to monitor 6. Atrial Fibrillation -Currently rate controlled -Will continue home regimens of Eliquis, Metoprolol, and Digoxin 7. COPD -Due to poor cooperation, will attempt to treat with PO Albuterol and Singulair 9. GERD -Famotidine IV 10. Alzheimer's Dementia -Will continue home regimen of Olanzapine, Clonazepam and Donepezil -Lorazepam PRN and Hydroxyzine PRN for agitation 11. Hx of Seizures -Will continue home Depakote regimen 12. Hx of CVA -Will continue home ASA and Atorvastatin 13. HTN -Will continue patient's home medication regimen and augment as needed Code: DNAR - confirmed with Patient's Daughter (MPOA) PCP: Isaura Diet: Regular w/ Thickened Textures and Enlive per Speech Therapy / Dietary Fluids: LR @ 115 ml/hr VTE PPx: Apixaban 2.5 mg PO BID GI PPx: Famotidine Social: Will update patient's daughter PRN (Opal Delgado: [phone]) Dispo: Patient is currently admitted to the Medical Floor for ongoing treatment of Acute Hypoxic Respiratory Failure 2/2 COVID-19 Pneumonia. Patient's overall clinical picture is stable but regrettably unfavorable with regards to high risk of mortality. Will monitor patient's respiratory status closely and coordinate with Case Management in order to assist with DC planning and hopeful transition back to NH. s/p correction of free water deficit - will continue to trend AM Labs. Wound Care consulted for LUE skin tear, Nursing Staff will continue to manage - confirmed ongoing use low-pressure/waffle mattress to reduce incidence of pressure ulcer this AM. ACHS Accuchecks for new-onset Hyperglycemia likely 2/2 prolonged steroid use - will treat with Lantus 10u SC QAM and add Mild SSI if goal POC Glucose readings of 140 - 180 cannot be achieved. Expected LOS > 48H. Addendum - Attending - Attending Attestation Date/Time: 08/10/20 9418 I personally evaluated the patient and discussed the management with Dr. Glover. I agree with the History, Examination, Assessment and Plan documented above with any addition or exceptions noted below.
[2020-08-10 06:37] LABS: Anion Gap 14 mmol/L (10-20); BUN (Urea Nitrogen) 42 mg/dL (8.4-25.7); Calc. Creatinine Clearance 49 mL/min (70-130); Calcium 8.1 mg/dL (7.8-10.44); Carbon Dioxide 24 mmol/L (23-31); Chloride 107 mmol/L (98-107); Estimated GFR-MDRD 57; Glucose 134 mg/dL (83-110); Sodium 141 mmol/L (136-145)
[2020-08-10 06:44] LABS: #Lymphocytes 0.5 thou/uL (1.20-3.40); #Monocytes 0.5 thou/uL (0.11-0.59); #Neutrophils 7.1 thou/uL (1.40-6.50); %Eosinophils 0.2 % (0.0-10.0); %Lymphocytes 6.6 % (21.0-51.0); %Monocytes 5.8 % (0.0-10.0); %Neutrophils 87.4 % (42.0-75.0); Hemoglobin 8.8 g/dL (14.0-18.0); Mean Corpuscular HGB CONC 32.4 g/dL (32.0-36.0); Mean Corpuscular Hemoglobin 29.9 pg (27.0-31.0); Mean Corpuscular Volume 92.4 fL (78.0-98.0); Mean Platelet Volume 7.5 fL (7.4-10.4); Platelet Count 284 thou/uL (130-400); RBC Distribution Width 14.9 % (11.5-14.5); Red Blood Cell (RBC) Count 2.93 mill/uL (4.70-6.10); White Blood Cell (WBC) Count 8.2 thou/uL (4.8-10.8)
[2020-08-10] MEDS: Insulin Glargine 10 UNITS in Pre-Filled Syringe 1 EACH SC SCH (09:29)
[2020-08-10] MEDS: Digoxin 0.125 MG TAB PO SCH (09:30)
[2020-08-10] MEDS: Aspirin 81 mg Enteric Coated Tablet PO SCH (09:30)
[2020-08-10] MEDS: Apixaban 2.5 MG TAB PO SCH ×2 (09:31→20:47)
[2020-08-10] MEDS: Dexamethasone 4 mg/ml Vial SLOW IVP SCH ×2 (09:31→20:47)
[2020-08-10] MEDS: Furosemide 40 MG TAB PO SCH (09:31)
[2020-08-10] MEDS: clonazePAM 0.5 MG TAB PO SCH ×2 (09:31→20:46)
[2020-08-10] MEDS: Docusate 100 MG CAP PO SCH (09:31)
[2020-08-10] MEDS: OXcarbazepine 150 MG TAB PO SCH ×2 (09:37→20:46)
--- NOTE | 2020-08-10 10:53 | RAD ---
PORTABLE CHEST: Date: 08/10/2020 HISTORY: COVID pneumonia. COMPARISON: Prior day's exam. FINDINGS: Heart size is enlarged. An internal defibrillator device is present. Chronic lung changes are seen. T he infiltrative lung change which is mainly in the left mid lung field as well as the pleural change of the left base all appear stable. IMPRESSION: Stable exam. POS: SHE
[2020-08-10] MEDS: Dextrose 50% Abboject 50 ML SYRINGE IVP PRN (16:32)
[2020-08-10] MEDS: OLANZapine 2.5 MG TAB PO SCH (20:46)
[2020-08-10] MEDS: Donepezil HCl 10 MG TAB PO SCH (20:46)
[2020-08-10] MEDS: Divalproex Sodium 125 mg Sprinkle Capsule PO SCH (20:46)
[2020-08-10] MEDS: Famotidine/PF 20 mg/2ml Vial SLOW IVP SCH (20:47)
[2020-08-10] MEDS: Atorvastatin Calcium 10 MG TAB PO SCH (20:47)
[2020-08-10] MEDS: Montelukast Sodium 10 mg Tablet PO SCH (20:47)
[2020-08-11] MEDS: Ipratropium/Albuterol Sulfate 4 GM AER IH SCH ×4 (01:50→22:38)
[2020-08-11] MEDS: PROVENTIL INHALER 6.7 G (200 INHALATIONS) INH SCH ×6 (03:22→22:39)
[2020-08-11] MEDS: Lactated Ringer's 1,000 ML IV SCH ×2 (05:36→14:08)
--- NOTE | 2020-08-11 06:29 | PDOC.FM ---
- Subjective Subjective: Mr. Garduno was sitting up in bed on hiflo this morning. He was communicative but difficult to understand. There were not any obvious complaints that I could ascertain today. No acute events overnight. Nursing notes fullness in the right side of his chest. - Objective Vital Signs & Weight: Vital Signs (12 hours) Temp Pulse Resp BP Pulse Ox 08/11/20 05:35 61 20 141/62 H 93 L 08/11/20 01:48 63 22 H 165/72 H 95 08/10/20 20:30 97.4 F L 61 20 166/101 H 98 Weight Admit Weight 72.121 kg Weight 72.121 kg I&O: 08/09/20 08/10/20 08/11/20 06:59 06:59 06:59 Intake Total 1565 1160 1625 Balance 1565 1160 1625 Result Diagrams: 08/11/20 07:06 08/11/20 07:06 Phys Exam - Physical Examination Constitutional: NAD Respiratory: wheezing present (course breath sounds), clear to auscultation bilateral Cardiovascular: RRR, no significant murmur Gastrointestinal: soft, non-tender Musculoskeletal: no edema No erythema, rash, edema, or palapable mass to right side of chest Neurological: non-focal Skin: normal turgor Dx/Plan - Plan Plan: 80 y/o male with a PMH significant for COPD and Dementia who presents from a [place] for evaluation of worsening cough with increased sputum production, fever, and acute worsening of baseline Dementia. 1. Acute Hypoxic Respiratory Failure, 2/2 COVID PNA -Start of COVID Symptoms: 07/30/20 -Positive Test: 08/01/20 -Currently on HFNC 50%/50L -Dr. Abbasi (ID): Consulted -s/p Azithromycin, Remdesivir and Convalescent Plasma -Dexamethasone 6 mg IV BID -PO Albuterol initiated due to poor coordination for inhalers -Improvement in inflammatory markers -Will perform serial CXRs to evaluation for worsening of multifocal infiltrates 2. Sepsis, 2/2 above -s/p Cefepime, Azithromycin -Procal 0.27 > downtrending -UCx: Negative -BCx: Negative 3. Acute Metabolic Encephalopathy, 2/2 above -Sepsis treated - will continue home medication regimen for Alzheimer's -CT Brain: Negative 4. CKD 3 -Stable, will continue to monitor 5. Pancytopenia -Improving, will continue to monitor 6. Atrial Fibrillation -Currently rate controlled -Will continue home regimens of Eliquis, Metoprolol, and Digoxin 7. COPD -Due to poor cooperation, will attempt to treat with PO Albuterol and Singulair 9. GERD -Famotidine IV 10. Alzheimer's Dementia -Will continue home regimen of Olanzapine, Clonazepam and Donepezil -Lorazepam PRN and Hydroxyzine PRN for agitation 11. Hx of Seizures -Will continue home Depakote regimen 12. Hx of CVA -Will continue home ASA and Atorvastatin 13. HTN -Will continue patient's home medication regimen and augment as needed 14. Hyperglycemia - likely 2/2 prolonged steroid use - borderline hypoglycemia, decrease Lantus 10->5 u, continue to monitor - mild SSI Code: DNAR - confirmed with Patient's Daughter (PAWAN) PCP: Isaura Diet: Regular w/ Thickened Textures and Enlive per Speech Therapy / Dietary Fluids: LR @ 115 ml/hr VTE PPx: Apixaban 2.5 mg PO BID GI PPx: Famotidine Social: Will update patient's daughter PRN (Opal Delgado: [phone]) Dispo: Patient's overall clinical picture is stable but regrettably unfavorable with regards to high risk of mortality. Will monitor patient's respiratory status closely and coordinate with Case Management in order to assist with DC planning and hopeful transition back to [place] at some point. Pressure/waffle mattress to reduce incidence of pressure ulcer Addendum - Attending - Attending Attestation Date/Time: 08/12/20 4862 I personally evaluated the patient and discussed the management with Dr. Thomas. I agree with the History, Examination, Assessment and Plan documented above with any addition or exceptions noted below. The patient remains on high flow O2. He does require restraints when he becomes agitated. Pt has geodon and ativan as needed. No palpable mass on the chest. Wean oxygen as tolerated.
[2020-08-11 07:14] LABS: #Basophils 0.1 thou/uL (0.0-0.2); #Lymphocytes 0.5 thou/uL (1.20-3.40); #Monocytes 0.6 thou/uL (0.11-0.59); #Neutrophils 8.4 thou/uL (1.40-6.50); %Basophils 0.5 % (0.0-1.0); %Eosinophils 0.2 % (0.0-10.0); %Lymphocytes 5.4 % (21.0-51.0); %Neutrophils 87.9 % (42.0-75.0); Hemoglobin 8.4 g/dL (14.0-18.0); Mean Corpuscular HGB CONC 32.1 g/dL (32.0-36.0); Mean Corpuscular Hemoglobin 29.6 pg (27.0-31.0); Mean Corpuscular Volume 92.4 fL (78.0-98.0); Mean Platelet Volume 7.3 fL (7.4-10.4); Platelet Count 249 thou/uL (130-400); RBC Distribution Width 14.8 % (11.5-14.5); Red Blood Cell (RBC) Count 2.82 mill/uL (4.70-6.10); White Blood Cell (WBC) Count 9.6 thou/uL (4.8-10.8)
[2020-08-11 07:32] LABS: Anion Gap 13 mmol/L (10-20); BUN (Urea Nitrogen) 36 mg/dL (8.4-25.7); Calc. Creatinine Clearance 53 mL/min (70-130); Calcium 7.8 mg/dL (7.8-10.44); Carbon Dioxide 26 mmol/L (23-31); Chloride 105 mmol/L (98-107); Estimated GFR-MDRD 62; Glucose 151 mg/dL (83-110); Potassium 4.3 mmol/L (3.5-5.1); Sodium 140 mmol/L (136-145)
--- NOTE | 2020-08-11 07:35 | RAD ---
Chest one view HISTORY: COVID pneumonia. COMPARISON: 08/10/2020. FINDINGS: Cardiac silhouette is magnified and enlarged. Pulmonary vasculature remains engorged. Mediastinum is midline with aortic calcification and multilevel E left subclavian cardiac electronic device. Patchy areas of ill-defined parenchymal infiltrate throughout the left lung and mild infiltrate in th e right upper lobe again demonstrated. Linear scarring involves each lung. There is blunting of the left lateral costophrenic angle. No evidence of pneumothorax. IMPRESSION : Multifocal infiltrates, left pleural fluid, and other findings are stable.
[2020-08-11] MEDS: Dexamethasone 4 mg/ml Vial SLOW IVP SCH (09:38)
[2020-08-11] MEDS: clonazePAM 0.5 MG TAB PO SCH ×2 (09:38→21:23)
[2020-08-11] MEDS: Apixaban 2.5 MG TAB PO SCH ×2 (09:39→21:23)
[2020-08-11] MEDS: Furosemide 40 MG TAB PO SCH (09:39)
[2020-08-11] MEDS: Digoxin 0.125 MG TAB PO SCH (09:39)
[2020-08-11] MEDS: Aspirin 81 mg Enteric Coated Tablet PO SCH (09:39)
[2020-08-11] MEDS: Docusate 100 MG CAP PO SCH (09:39)
[2020-08-11] MEDS: OXcarbazepine 150 MG TAB PO SCH ×2 (13:23→21:23)
[2020-08-11] MEDS: Insulin Glargine 5 UNITS in Pre-Filled Syringe 1 EACH SC SCH (13:23)
--- NOTE | 2020-08-11 14:13 | PRG ---
DATE OF SERVICE: 08/11/2020 SUBJECTIVE: Mr. Garduno is mumbling unintelligible sounds. He is somewhat tachypneic, hard to get review of systems because of his mental state, cognitive issues. OBJECTIVE: VITAL SIGNS: He has been afebrile for the past many days. His O2 saturations are ranging from 92 to 94 on high-flow nasal cannula, 50%, which is about what he has been at for the past many days. His respiratory rates are ranging from 20 to 24. The patient has a few wheezes noted mostly at the bases. No crackles. HEART: S1 and S2. Regular rate without murmurs. ABDOMEN: Soft, not distended. EXTREMITIES: Seems to move extremities equally. LABORATORY DATA: White cell count 9.6, hemoglobin 8.4, platelets 249 with 87% neutrophils. Creatinine 1.13. Ferritin was measured on the , has not been repeated, was 170. CRP is down markedly from 7 to 0.74. D-dimer is also decreased to 0.87 from admission. He is currently receiving inhalers, Eliquis, Decadron. I think he finished his remdesivir. Had a chest x-ray repeated today, which showed multifocal infiltrates, fairly stable findings. ASSESSMENT AND DISCUSSION: Cardiomyopathy, AICD, multi-infarct dementia, hypoxemia, COVID pneumonia with severe manifestation. Steady oxygen supplementation requirements. Decreasing inflammatory marker values, particularly CRP as well as decrease in D-dimer. Currently, on Decadron, has completed his remdesivir course, and this is his 12th day of illness, so still long ways to go if he makes it out of this predicament. Job ID: [id number]
[2020-08-11] MEDS: Divalproex Sodium 125 mg Sprinkle Capsule PO SCH (21:22)
[2020-08-11] MEDS: Atorvastatin Calcium 10 MG TAB PO SCH (21:22)
[2020-08-11] MEDS: Montelukast Sodium 10 mg Tablet PO SCH (21:23)
[2020-08-11] MEDS: Donepezil HCl 10 MG TAB PO SCH (21:23)
[2020-08-11] MEDS: OLANZapine 2.5 MG TAB PO SCH (21:23)
[2020-08-11] MEDS: Dexamethasone 4 mg/ml Vial IM SCH (22:39)
[2020-08-11] MEDS: Famotidine/PF 20 mg/2ml Vial SLOW IVP SCH (22:39)
[2020-08-12] MEDS: Lactated Ringer's 1,000 ML IV SCH ×2 (01:23→13:26)
[2020-08-12] MEDS: Ipratropium/Albuterol Sulfate 4 GM AER IH SCH ×3 (01:24→21:14)
[2020-08-12] MEDS: hydrOXYzine 25 MG TAB PO PRN ×2 (02:06→18:40)
[2020-08-12] MEDS: PROVENTIL INHALER 6.7 G (200 INHALATIONS) INH SCH ×3 (02:23→18:33)
--- NOTE | 2020-08-12 07:48 | RAD ---
Chest one view HISTORY: COVID pneumonia. COMPARISON: 08/11/2020. FINDINGS: Cardiac silhouette is magnified and enlarged. Pulmonary vasculature remains engorged. Mediastinum is midline with aortic calcification and a multi lead left subclavian cardiac electronic device. Ill-defined patchy areas of parenchymal infiltrate throughout each lung, linear scarring, and pulmona ry hyperinflation are similar in appearance to the prior study. Blunting of the left lateral costophrenic angle, consistent with small amount of pleural fluid, is ag ain demonstrated. No evidence of pneumothorax. IMPRESSION : Multifocal infiltrates, left pleural fluid, and other findings appear stable.
[2020-08-12] MEDS: OXcarbazepine 150 MG TAB PO SCH ×2 (11:00→19:57)
[2020-08-12] MEDS: Apixaban 2.5 MG TAB PO SCH ×2 (11:00→19:58)
[2020-08-12] MEDS: Aspirin 81 mg Enteric Coated Tablet PO SCH (11:00)
[2020-08-12] MEDS: Furosemide 40 MG TAB PO SCH (11:00)
[2020-08-12] MEDS: Docusate 100 MG CAP PO SCH (11:00)
[2020-08-12] MEDS: Digoxin 0.125 MG TAB PO SCH (11:00)
[2020-08-12] MEDS: Dexamethasone 4 mg/ml Vial IM SCH ×2 (11:00→19:59)
[2020-08-12] MEDS: Ziprasidone 20 MG VIAL IM PRN (11:00)
[2020-08-12] MEDS: Insulin Glargine 5 UNITS in Pre-Filled Syringe 1 EACH SC SCH (12:00)
--- NOTE | 2020-08-12 13:56 | PDOC.FM ---
- Subjective Subjective: No acute events overnight. Continues to be on HFNC. He did lose IV access yesterday, unable to place peripheral, with plan to replace midline today. Mr. Garduno without much improvement overall. Mumbled during our encounter. - Objective Vital Signs & Weight: Vital Signs (12 hours) Pulse Resp BP Pulse Ox 08/12/20 04:05 80 20 157/85 H 93 L Weight Admit Weight 72.121 kg Weight 72.121 kg I&O: 08/11/20 08/12/20 08/13/20 06:59 06:59 06:59 Intake Total 1625 120 Balance 1625 120 Result Diagrams: 08/11/20 07:06 08/11/20 07:06 Phys Exam - Physical Examination HEENT: moist MMs Respiratory: no rhonchi, wheezing present (inspiratory) Cardiovascular: RRR, no significant murmur Gastrointestinal: soft, non-tender Musculoskeletal: no edema Skin: normal turgor Dx/Plan - Plan Plan: 80 y/o male with a PMH significant for COPD and Dementia who presents from a [place] for evaluation of worsening cough with increased sputum production, fever, and acute worsening of baseline Dementia. 1. Acute Hypoxic Respiratory Failure, 2/2 COVID PNA -Start of COVID Symptoms: 07/30/20 -Positive Test: 08/01/20 -Currently on HFNC 50%/50L -Dr. Abbasi (ID): Consulted -s/p Azithromycin, Remdesivir and Convalescent Plasma -Dexamethasone 6 mg IV BID (currently IM d/t no access) -PO Albuterol initiated due to poor coordination for inhalers -Improvement in inflammatory markers - serial CXRs 2. Sepsis, 2/2 above -s/p Cefepime, Azithromycin -Procal 0.27 > downtrend -UCx: Negative -BCx: Negative 3. Acute Metabolic Encephalopathy, 2/2 above -Sepsis treated - will continue home medication regimen for Alzheimer's -CT Brain: Negative 4. CKD 3 -Stable, will continue to monitor 5. Pancytopenia -Improving, will continue to monitor 6. Atrial Fibrillation -Currently rate controlled -Will continue home regimens of Eliquis, Metoprolol, and Digoxin 7. COPD -Due to poor cooperation, will attempt to treat with PO Albuterol and Singulair 9. GERD -Famotidine IV 10. Alzheimer's Dementia -Will continue home regimen of Olanzapine, Clonazepam and Donepezil -Lorazepam PRN, geodon prn, and Hydroxyzine PRN for agitation 11. Hx of Seizures -Will continue home Depakote regimen 12. Hx of CVA -Will continue home ASA and Atorvastatin 13. HTN -Will continue patient's home medication regimen and augment as needed 14. Hyperglycemia - likely 2/2 prolonged steroid use - borderline hypoglycemia, decreased Lantus 10->5 u, continue to monitor - mild SSI Code: DNAR - confirmed with Patient's Daughter (PAWAN) PCP: Isaura Diet: Regular w/ Thickened Textures and Enlive per Speech Therapy / Dietary Fluids: LR @ 115 ml/hr-->60ml today VTE PPx: Apixaban 2.5 mg PO BID GI PPx: Famotidine Social: Will update patient's daughter PRN (Opal Delgado: [phone]) Dispo: Patient's overall clinical picture is stable but regrettably unfavorable with regards to high risk of mortality. Overall no improvement in respiratory status. Will decrease IVF over next 24 hrs considering increased congestion on CXR this am. Reassess volume status in am. BP consistently elevated during hospitalization. Patient agitation could be contributory but will add amlodipine in am for better control. Addendum - Attending - Attending Attestation Date/Time: 08/12/20 6707 I personally evaluated the patient and discussed the management with Dr. Thomas. I agree with the History, Examination, Assessment and Plan documented above with any addition or exceptions noted below. Pt's blood pressure have been elevated for several days. Restarting bp med. Will continue to try to wean O2 but have been unsuccesful so far. Decreasing IV fluids. Attempting to regain IV access.
[2020-08-12] MEDS: Donepezil HCl 10 MG TAB PO SCH (19:57)
[2020-08-12] MEDS: OLANZapine 2.5 MG TAB PO SCH (19:58)
[2020-08-12] MEDS: Atorvastatin Calcium 10 MG TAB PO SCH (19:58)
[2020-08-12] MEDS: Montelukast Sodium 10 mg Tablet PO SCH (19:58)
[2020-08-12] MEDS: Acetaminophen 500 MG TAB PO PRN (19:58)
[2020-08-12] MEDS: Divalproex Sodium 125 mg Sprinkle Capsule PO SCH (20:04)
[2020-08-12] MEDS: Famotidine/PF 20 mg/2ml Vial SLOW IVP SCH (21:14)
[2020-08-12] MEDS: Lorazepam 2 MG/ML VIAL IM PRN (21:23)
[2020-08-13] MEDS: Ziprasidone 20 MG VIAL IM PRN (01:24)
[2020-08-13] MEDS: Ipratropium/Albuterol Sulfate 4 GM AER IH SCH ×4 (01:26→18:20)
[2020-08-13] MEDS: PROVENTIL INHALER 6.7 G (200 INHALATIONS) INH SCH ×7 (01:26→22:05)
[2020-08-13] MEDS: Lactated Ringer's 1,000 ML IV SCH ×3 (03:18→16:23)
--- NOTE | 2020-08-13 06:00 | PDOC.FM ---
- Subjective Subjective: Patient was resting comfortably in bed at the time of evaluation, in no acute cardiopulmonary distress. No acute overnight events were reported by the Resident Night Team or Nursing Staff. - Objective Vital Signs & Weight: Vital Signs (12 hours) Temp Pulse Resp BP Pulse Ox 08/12/20 20:07 96 08/12/20 20:00 97.5 F L 63 20 121/78 96 Weight Admit Weight 72.121 kg Weight 72.121 kg I&O: 08/11/20 08/12/20 08/13/20 06:59 06:59 06:59 Intake Total 1625 120 Balance 1625 120 Result Diagrams: 08/13/20 06:00 08/13/20 06:00 Phys Exam - Physical Examination Constitutional: NAD HEENT: moist MMs Neck: supple Respiratory: no wheezing, no rales, no rhonchi, clear to auscultation bilateral Cardiovascular: RRR, no significant murmur, no rub Gastrointestinal: soft, non-tender, no distention, positive bowel sounds Musculoskeletal: no edema, pulses present Neurological: non-focal Deviation from normal: Sleeping - unable to complete exam Deviation from normal: No evidence of ongoing bleeding or oozing Dx/Plan (1) Acute respiratory failure with hypoxia Code(s): J96.01 - ACUTE RESPIRATORY FAILURE WITH HYPOXIA Status: Acute (2) COVID-19 Code(s): U07.1 - COVID-19 Status: Acute (3) Seizures Code(s): R56.9 - UNSPECIFIED CONVULSIONS Status: Chronic (4) Pancytopenia Code(s): D61.818 - OTHER PANCYTOPENIA Status: Acute (5) CKD (chronic kidney disease) Code(s): N18.9 - CHRONIC KIDNEY DISEASE, UNSPECIFIED Status: Chronic (6) HLD (hyperlipidemia) Code(s): E78.5 - HYPERLIPIDEMIA, UNSPECIFIED Status: Chronic (7) HTN (hypertension) Code(s): I10 - ESSENTIAL (PRIMARY) HYPERTENSION Status: Chronic (8) Dementia Code(s): F03.90 - UNSPECIFIED DEMENTIA WITHOUT BEHAVIORAL DISTURBANCE Status: Chronic (9) A-fib Code(s): I48.91 - UNSPECIFIED ATRIAL FIBRILLATION Status: Chronic - Plan Plan: Patient is an 80 y/o male with a PMH significant for COPD and Dementia who presents from a NH for evaluation of worsening cough with increased sputum production, fever, and acute worsening of baseline Dementia. 1. Acute Hypoxic Respiratory Failure, 2/2 COVID PNA -Start of COVID Symptoms: 07/30/20 -Positive Test: 08/01/20 -Currently on HFNC 50%/50L -Dr. Abbasi (ID): Consulted -s/p Azithromycin, Remdesivir and Convalescent Plasma -Dexamethasone 6 mg IV BID (currently IM d/t no access - will attempt to regain access today) -PO Albuterol initiated due to poor coordination for inhalers -Improvement in inflammatory markers -Serial CXRs - no significant changes noted 2. Sepsis, 2/2 above -s/p Cefepime, Azithromycin -Procal 0.27 - downtrended -UCx: Negative -BCx: Negative 3. Acute Metabolic Encephalopathy, 2/2 above -Sepsis treated - will continue home medication regimen for Alzheimer's -CT Brain: Negative 4. CKD 3 -Stable, will continue to monitor 5. Pancytopenia -Improving, will continue to monitor 6. Atrial Fibrillation -Currently rate controlled -Will continue home regimens of Eliquis, Metoprolol, and Digoxin 7. COPD -Due to poor cooperation, will attempt to treat with PO Albuterol and Singulair 9. GERD -Famotidine IV 10. Alzheimer's Dementia -Will continue home regimen of Olanzapine, Clonazepam and Donepezil -Lorazepam PRN, Geodon PRN, and Hydroxyzine PRN for agitation 11. Hx of Seizures -Will continue home Depakote regimen 12. Hx of CVA -Will continue home ASA and Atorvastatin 13. HTN -Will continue patient's home medication regimen and augment as needed 14. Hyperglycemia -Likely 2/2 prolonged steroid use -Per Nursing Staff, patient had Hypoglycemia x1 - will decrease Lantus from 10u QAM to 5u QAM -Mild SSI -Hypoglycmia Protocol Code: DNAR - confirmed with Patient's Daughter (MPOA) PCP: Isaura Diet: Regular w/ Thickened Textures and Enlive per Speech Therapy / Dietary Fluids: LR @ 60ml pending IV access VTE PPx: Apixaban 2.5 mg PO BID GI PPx: Famotidine Social: Will update patient's daughter PRN (Opal Delgado: [phone]) Dispo: Patient's overall clinical picture is stable but regrettably unfavorable with regards to high risk of mortality. Overall no improvement in respiratory status. Will decrease IVF over next 24 hrs considering increased congestion on recent CXR and reassess volume status. BP consistently elevated during hospitalization - recently started on Amlodipine and will titrate accordingly. Expected LOS > 48H.
[2020-08-13 06:19] LABS: #Lymphocytes 0.6 thou/uL (1.20-3.40); #Monocytes 0.4 thou/uL (0.11-0.59); %Basophils 0.3 % (0.0-1.0); %Eosinophils 0.3 % (0.0-10.0); %Lymphocytes 6.3 % (21.0-51.0); %Monocytes 3.9 % (0.0-10.0); %Neutrophils 89.2 % (42.0-75.0); Hemoglobin 9.4 g/dL (14.0-18.0); Mean Corpuscular HGB CONC 31.8 g/dL (32.0-36.0); Mean Corpuscular Hemoglobin 29.4 pg (27.0-31.0); Mean Corpuscular Volume 92.4 fL (78.0-98.0); Mean Platelet Volume 7.7 fL (7.4-10.4); Platelet Count 297 thou/uL (130-400); RBC Distribution Width 14.8 % (11.5-14.5); Red Blood Cell (RBC) Count 3.21 mill/uL (4.70-6.10); White Blood Cell (WBC) Count 10.1 thou/uL (4.8-10.8)
[2020-08-13 06:39] LABS: Anion Gap 17 mmol/L (10-20); BUN (Urea Nitrogen) 34 mg/dL (8.4-25.7); Calc. Creatinine Clearance 50 mL/min (70-130); Calcium 8.1 mg/dL (7.8-10.44); Carbon Dioxide 25 mmol/L (23-31); Chloride 104 mmol/L (98-107); Estimated GFR-MDRD 58; Glucose 137 mg/dL (83-110); Potassium 4.5 mmol/L (3.5-5.1); Sodium 141 mmol/L (136-145)
--- NOTE | 2020-08-13 08:51 | RAD ---
PORTABLE CHEST: Date: 08/13/2020 INDICATION: COVID pneumonia follow-up. COMPARISON: 08/12/2020. FINDINGS: Bilateral effusions again noted, slightly larger on the left. Hazy infiltrate involving the left uppe r and mid lung, and hazy infiltrate in the right lower lung. The infiltrates appear improved when compared to yesterday, especially in the right upper lung. IMPRESSION: Effusions and bilateral infiltrates again noted. There is evidence of improvement when compared to ye sterjose francisco's study. POS: OFF
[2020-08-13] MEDS: Apixaban 2.5 MG TAB PO SCH ×2 (09:30→21:05)
[2020-08-13] MEDS: Aspirin 81 mg Enteric Coated Tablet PO SCH (09:30)
[2020-08-13] MEDS: Dexamethasone 4 mg/ml Vial IM SCH (09:30)
[2020-08-13] MEDS: Digoxin 0.125 MG TAB PO SCH (09:31)
[2020-08-13] MEDS: Amlodipine 5 MG TAB PO SCH (09:31)
[2020-08-13] MEDS: Furosemide 40 MG TAB PO SCH (09:31)
[2020-08-13] MEDS: OXcarbazepine 150 MG TAB PO SCH ×2 (09:31→21:07)
[2020-08-13] MEDS: Docusate 100 MG CAP PO SCH ×2 (09:31→10:34)
[2020-08-13] MEDS: Insulin Glargine 5 UNITS in Pre-Filled Syringe 1 EACH SC SCH (09:37)
--- NOTE | 2020-08-13 14:15 | PRG ---
DATE OF SERVICE: 08/13/2020 Mr. Garduno continues to undergo successful treatment for pneumonia as well as COVID. We appreciate the input from Dr. Abbasi and we will continue to follow him. Job ID: [id number]
[2020-08-13] MEDS: Bacitracin 1 PK TOP PRN (17:10)
[2020-08-13] MEDS ORDERED: Dexamethasone 4 mg/ml Vial IVPB SCH (20:53)
[2020-08-13] MEDS: Montelukast Sodium 10 mg Tablet PO SCH (21:05)
[2020-08-13] MEDS: Atorvastatin Calcium 10 MG TAB PO SCH (21:05)
[2020-08-13] MEDS: Donepezil HCl 10 MG TAB PO SCH (21:06)
[2020-08-13] MEDS: Famotidine/PF 20 mg/2ml Vial SLOW IVP SCH (21:06)
[2020-08-13] MEDS: OLANZapine 2.5 MG TAB PO SCH (21:07)
[2020-08-13] MEDS: Dexamethasone 6 MG in Sodium Chloride 0.9% 50 ML IVPB SCH (21:55)
[2020-08-13] MEDS: Divalproex Sodium 125 mg Sprinkle Capsule PO SCH (21:59)
[2020-08-14] MEDS: Ipratropium/Albuterol Sulfate 4 GM AER IH SCH ×4 (00:23→18:23)
[2020-08-14] MEDS: PROVENTIL INHALER 6.7 G (200 INHALATIONS) INH SCH ×6 (04:17→22:36)
[2020-08-14] MEDS: Lorazepam 2 MG/ML VIAL IM PRN (06:57)
--- NOTE | 2020-08-14 07:34 | PDOC.FM ---
- Subjective Subjective: Patient was resting comfortably in bed at the time of evaluation. He was in no acute cardiopulmonary distress and his mental status appeared to be at baseline. No acute overnight events were reported by the Resident Night Team or Nursing Staff. - Objective Vital Signs & Weight: Vital Signs (12 hours) Temp Pulse Resp BP Pulse Ox 08/14/20 04:00 98.2 F 62 22 H 154/75 H 96 08/14/20 00:00 98.1 F 66 22 H 165/72 H 96 08/13/20 20:00 97.9 F 60 22 H 163/63 H 98 Weight Admit Weight 72.121 kg Weight 72.121 kg I&O: 08/13/20 08/14/20 08/15/20 06:59 06:59 06:59 Intake Total 1410 Balance 1410 Result Diagrams: 08/13/20 06:00 08/13/20 06:00 Phys Exam - Physical Examination Constitutional: NAD In soft restraints HEENT: moist MMs, oral pharynx no lesions Neck: supple, full ROM Respiratory: no wheezing, no rales, no rhonchi Cardiovascular: RRR, no significant murmur, no rub Gastrointestinal: soft, non-tender, no distention, positive bowel sounds Musculoskeletal: no edema, pulses present Neurological: non-focal, moves all 4 limbs Deviation from normal: Unable to perform exam Deviation from normal: Stable skin tears with appropriate bandaging - no drainage or bleeding Dx/Plan (1) Acute respiratory failure with hypoxia Code(s): J96.01 - ACUTE RESPIRATORY FAILURE WITH HYPOXIA Status: Acute (2) COVID-19 Code(s): U07.1 - COVID-19 Status: Acute (3) Seizures Code(s): R56.9 - UNSPECIFIED CONVULSIONS Status: Chronic (4) Pancytopenia Code(s): D61.818 - OTHER PANCYTOPENIA Status: Acute (5) CKD (chronic kidney disease) Code(s): N18.9 - CHRONIC KIDNEY DISEASE, UNSPECIFIED Status: Chronic (6) HLD (hyperlipidemia) Code(s): E78.5 - HYPERLIPIDEMIA, UNSPECIFIED Status: Chronic (7) HTN (hypertension) Code(s): I10 - ESSENTIAL (PRIMARY) HYPERTENSION Status: Chronic (8) Dementia Code(s): F03.90 - UNSPECIFIED DEMENTIA WITHOUT BEHAVIORAL DISTURBANCE Status: Chronic (9) A-fib Code(s): I48.91 - UNSPECIFIED ATRIAL FIBRILLATION Status: Chronic - Plan Plan: Patient is an 80 y/o male with a PMH significant for COPD and Dementia who presents from a [place] for evaluation of worsening cough with increased sputum production, fever, and acute worsening of baseline Dementia. 1. Acute Hypoxic Respiratory Failure, 2/2 COVID PNA -Start of COVID Symptoms: 07/30/20 -Positive Test: 08/01/20 -Currently on HFNC 50%/50L - will continue to wean as appropriate -Dr. Abbasi (ID): Consulted -s/p Azithromycin, Remdesivir and Convalescent Plasma -Dexamethasone 6 mg IV BID -PO Albuterol initiated due to poor coordination for inhalers -Improvement in inflammatory markers -Serial CXRs - no significant changes noted 2. Sepsis, 2/2 above -s/p Cefepime, Azithromycin -Procal 0.27 - downtrended -UCx: Negative -BCx: Negative 3. Acute Metabolic Encephalopathy, 2/2 above -Sepsis treated - will continue home medication regimen for Alzheimer's -CT Brain: Negative 4. CKD 3 -Stable, will continue to monitor 5. Pancytopenia -Improving, will continue to monitor 6. Atrial Fibrillation -Currently rate controlled -Will continue home regimens of Eliquis, Metoprolol, and Digoxin 7. COPD -Due to poor cooperation, will attempt to treat with PO Albuterol and Singulair 9. GERD -Famotidine IV 10. Alzheimer's Dementia -Will continue home regimen of Olanzapine, Clonazepam and Donepezil -Lorazepam PRN, Geodon PRN, and Hydroxyzine PRN for agitation 11. Hx of Seizures -Will continue home Depakote regimen 12. Hx of CVA -Will continue home ASA and Atorvastatin 13. HTN -Will continue patient's home medication regimen with additional Amlodipine 2.5 mg PO daily added on - may titrate up based on clinical course 14. Hyperglycemia -Likely 2/2 prolonged steroid use -Per Nursing Staff, patient had Hypoglycemia x1 - decreased Lantus from 10u QAM to 5u QAM -No severe-range POC Glucose readings noted -Mild SSI -Hypoglycemia Protocol Code: DNAR - confirmed with Patient's Daughter (MPOA) PCP: Isaura Diet: Regular w/ Thickened Textures and Enlive per Speech Therapy / Dietary Fluids: LR @ 60ml VTE PPx: Apixaban 2.5 mg PO BID GI PPx: Famotidine Social: Will update patient's daughter PRN (Opal Delgado: [phone]) Dispo: Patient's overall clinical picture is stable but regrettably unfavorable with regards to high risk of mortality. Overall no improvement in respiratory status or significant changes on CXR. BP consistently elevated during hospitalization. Expected LOS > 48H.
--- NOTE | 2020-08-14 08:03 | RAD ---
EXAM: CHEST ONE VIEW HISTORY: Covid pneumonia. Follow-up evaluation. COMPARISON: 08/13/2020 FINDINGS: Triple lead left subclavian acid device is noted in place. There is partial visualization of an abdom inal aortic stent graft with surgical clips in the left upper quadrant. Cardiac silhouette is mildly enlarged. Increased interstitial opacities are seen in the left upper and mid lung zones and t o a lesser extent in the right perihilar location. Mild patchy airspace opacity is seen at each lung base. Is seen at the Small bilateral pleural effusions are identified. Given differences in tech nique, chest is overall stable when compared to the prior study. IMPRESSION: Stable chest.
[2020-08-14] MEDS: Dexamethasone 6 MG in Sodium Chloride 0.9% 50 ML IVPB SCH ×2 (09:27→21:07)
[2020-08-14] MEDS: Aspirin 81 mg Enteric Coated Tablet PO SCH (09:27)
[2020-08-14] MEDS: Docusate 100 MG CAP PO SCH (09:27)
[2020-08-14] MEDS: Furosemide 40 MG TAB PO SCH (09:28)
[2020-08-14] MEDS: Apixaban 2.5 MG TAB PO SCH ×2 (09:28→21:06)
[2020-08-14] MEDS: Digoxin 0.125 MG TAB PO SCH (09:28)
[2020-08-14] MEDS: Amlodipine 5 MG TAB PO SCH (09:28)
[2020-08-14] MEDS: OXcarbazepine 150 MG TAB PO SCH ×2 (09:28→21:08)
[2020-08-14] MEDS: Insulin Glargine 5 UNITS in Pre-Filled Syringe 1 EACH SC SCH (09:29)
[2020-08-14] MEDS: Lactated Ringer's 1,000 ML IV SCH ×2 (10:50→21:18)
--- NOTE | 2020-08-14 14:23 | PRG ---
DATE OF SERVICE: 08/14/2020 Mr. Garduno is many days past treatment for his COVID pneumonia. He remained stable, but not greatly improved, still requiring high-flow O2. Job ID: [id number]
[2020-08-14] MEDS: Bacitracin 1 PK TOP PRN (18:23)
[2020-08-14] MEDS: Atorvastatin Calcium 10 MG TAB PO SCH (21:06)
[2020-08-14] MEDS: Donepezil HCl 10 MG TAB PO SCH (21:07)
[2020-08-14] MEDS: Montelukast Sodium 10 mg Tablet PO SCH (21:07)
[2020-08-14] MEDS: Famotidine/PF 20 mg/2ml Vial SLOW IVP SCH (21:07)
[2020-08-14] MEDS: Divalproex Sodium 125 mg Sprinkle Capsule PO SCH (21:11)
[2020-08-14] MEDS: OLANZapine 2.5 MG TAB PO SCH (21:12)
[2020-08-14] MEDS: hydrOXYzine 25 MG TAB PO PRN (21:17)
[2020-08-15] MEDS: PROVENTIL INHALER 6.7 G (200 INHALATIONS) INH SCH ×6 (00:47→22:13)
[2020-08-15] MEDS: Ipratropium/Albuterol Sulfate 4 GM AER IH SCH ×4 (00:47→19:50)
--- NOTE | 2020-08-15 06:00 | PDOC.FM ---
- Subjective Subjective: Patient was resting comfortably in bed at the time of evaluation. Patient remains confused but did not appear acutely agitated. No acute overnight events were reported by the Resident Night Team or Nursing Staff. - Objective Vital Signs & Weight: Vital Signs (12 hours) Temp Pulse Resp BP Pulse Ox 08/15/20 04:00 97.8 F 60 20 147/63 H 98 08/14/20 23:41 97.4 F L 60 20 154/70 H 100 08/14/20 20:00 97.9 F 62 20 161/80 H 95 Weight Admit Weight 72.121 kg Weight 72.121 kg I&O: 08/13/20 08/14/20 08/15/20 06:59 06:59 06:59 Intake Total 1410 Balance 1410 Result Diagrams: 08/13/20 06:00 08/13/20 06:00 Phys Exam - Physical Examination Constitutional: NAD HEENT: moist MMs, oral pharynx no lesions Neck: supple, full ROM Respiratory: no wheezing, no rales, no rhonchi, clear to auscultation bilateral Cardiovascular: RRR, no significant murmur, no rub Gastrointestinal: soft, non-tender, no distention, positive bowel sounds Musculoskeletal: no edema, pulses present Neurological: non-focal, moves all 4 limbs Deviation from normal: A&Ox0 Deviation from normal: Skin tears appear stable w/o evidence of ongoing bleeding or discharge Dx/Plan (1) Acute respiratory failure with hypoxia Code(s): J96.01 - ACUTE RESPIRATORY FAILURE WITH HYPOXIA Status: Acute (2) COVID-19 Code(s): U07.1 - COVID-19 Status: Acute (3) Seizures Code(s): R56.9 - UNSPECIFIED CONVULSIONS Status: Chronic (4) Pancytopenia Code(s): D61.818 - OTHER PANCYTOPENIA Status: Acute (5) CKD (chronic kidney disease) Code(s): N18.9 - CHRONIC KIDNEY DISEASE, UNSPECIFIED Status: Chronic (6) HLD (hyperlipidemia) Code(s): E78.5 - HYPERLIPIDEMIA, UNSPECIFIED Status: Chronic (7) HTN (hypertension) Code(s): I10 - ESSENTIAL (PRIMARY) HYPERTENSION Status: Chronic (8) Dementia Code(s): F03.90 - UNSPECIFIED DEMENTIA WITHOUT BEHAVIORAL DISTURBANCE Status: Chronic (9) A-fib Code(s): I48.91 - UNSPECIFIED ATRIAL FIBRILLATION Status: Chronic - Plan Plan: Patient is an 80 y/o male with a PMH significant for COPD and Dementia who presents from a [place] for evaluation of worsening cough with increased sputum production, fever, and acute worsening of baseline Dementia. 1. Acute Hypoxic Respiratory Failure, 2/2 COVID PNA -Start of COVID Symptoms: 07/30/20 -Positive Test: 08/01/20 -Currently on HFNC 50%/50L - will continue to wean as appropriate -Dr. Abbasi (ID): Consulted -s/p Azithromycin, Remdesivir and Convalescent Plasma -Dexamethasone 6 mg IV BID -PO Albuterol initiated due to poor coordination for inhalers -Improvement in inflammatory markers -Serial CXRs: Enlarging pleural effusion noted on 08/15 - will administer Lasix 20 mg IV x1 -Palliative Care: Consulted, will discuss Goals of Care / End of Life Planning w/ Patient's Daughter (MPOA) 2. Sepsis, 2/2 above -s/p Cefepime, Azithromycin -Procal 0.27 - downtrended -UCx: Negative -BCx: Negative 3. Acute Metabolic Encephalopathy, 2/2 above -Sepsis treated - will continue home medication regimen for Alzheimer's -CT Brain: Negative 4. CKD 3 -Stable, will continue to monitor 5. Pancytopenia -Improving, will continue to monitor 6. Atrial Fibrillation -Currently rate controlled -Will continue home regimens of Eliquis, Metoprolol, and Digoxin 7. COPD -Due to poor cooperation, will attempt to treat with PO Albuterol and Singulair 9. GERD -Famotidine IV 10. Alzheimer's Dementia -Will continue home regimen of Olanzapine, Clonazepam and Donepezil -Lorazepam PRN, Geodon PRN, and Hydroxyzine PRN for agitation 11. Hx of Seizures -Will continue home Depakote regimen 12. Hx of CVA -Will continue home ASA and Atorvastatin 13. HTN -Will continue patient's home medication regimen with additional Amlodipine 2.5 mg PO daily added on - may titrate up based on clinical course 14. Hyperglycemia -Likely 2/2 prolonged steroid use -Per Nursing Staff, patient had Hypoglycemia x1 - decreased Lantus from 10u QAM to 5u QAM -No severe-range POC Glucose readings noted -Mild SSI -Hypoglycemia Protocol Code: DNAR - confirmed with Patient's Daughter (MPOA) PCP: Isaura Diet: Regular w/ Thickened Textures and Enlive per Speech Therapy / Dietary Fluids: LR @ 60ml VTE PPx: Apixaban 2.5 mg PO BID GI PPx: Famotidine Social: Will update patient's daughter PRN (Opal Delgado: [phone]) Dispo: Patient's overall clinical picture is stable but regrettably unfavorable with regards to high risk of mortality. Overall no improvement in respiratory status. BP consistently elevated during hospitalization - will not attempt to treat aggressively. Palliative Care consulted and assisting daughter with Goals of Care / End of Life discussions - recs appreciated. Expected LOS > 48H.
--- NOTE | 2020-08-15 08:15 | RAD ---
Chest one view HISTORY: COVID pneumonia. Follow-up. COMPARISON: 08/14/2020. FINDINGS: Cardiac silhouette is magnified and enlarged. Pulmonary vasculature upper limits of normal. Mediastinum slightly shifted rightward with patient rotation. Cardiac electronic device and atheroscl erosis again demonstrated. Hazy pleural opacity at the left base has progressed since the prior study. Associated atelectasis an d patchy ill-defined areas of parenchymal infiltrate otherwise similar to the prior study. Linear scarring at the right base is stable. No evidence of pneumothorax. IMPRESSION : Enlarging left pleural effusion. Patchy bilateral infiltrates otherwise stable.
[2020-08-15] MEDS: OXcarbazepine 150 MG TAB PO SCH ×2 (10:12→21:18)
[2020-08-15] MEDS: Aspirin 81 mg Enteric Coated Tablet PO SCH (10:13)
[2020-08-15] MEDS: Furosemide 40 MG TAB PO SCH (10:13)
[2020-08-15] MEDS: Amlodipine 5 MG TAB PO SCH (10:13)
[2020-08-15] MEDS: Digoxin 0.125 MG TAB PO SCH (10:13)
[2020-08-15] MEDS: Apixaban 2.5 MG TAB PO SCH ×2 (10:13→21:19)
[2020-08-15] MEDS: Insulin Glargine 5 UNITS in Pre-Filled Syringe 1 EACH SC SCH (10:14)
[2020-08-15] MEDS: Docusate 100 MG CAP PO SCH (10:14)
[2020-08-15] MEDS: Dexamethasone 6 MG in Sodium Chloride 0.9% 50 ML IVPB SCH ×2 (10:15→21:23)
[2020-08-15] MEDS ORDERED: Furosemide 20 MG/2 ML VIAL SLOW IVP SCH (13:15)
--- NOTE | 2020-08-15 14:03 | PRG ---
DATE OF SERVICE: 08/15/2020 I have had discussed the case with Dr. Glover and agree with his assessment and plan. There has really been no significant change in Mr. Garduno's condition clinically. He is however still requiring high-flow oxygen, although he several days ago completed the brunt of his COVID treatment. For now, we will continue with high-flow O2 and discuss with the family their plans for his long-term care given his advanced age and dementia. Job ID: [id number]
--- NOTE | 2020-08-15 16:13 | PRG ---
DATE OF SERVICE: 08/15/2020 SUBJECTIVE: Mr. Garduno is still confused. He is not agitated. He cannot provide a review of systems. OBJECTIVE: VITAL SIGNS: Normal temperature for many days now, O2 saturations are 98, still with high-flow nasal cannula. The rate is steady at 50. His sats have been improving of late, so that is a good change. LUNGS: With fairly clear breath sounds. HEART: S1 and S2, regular rate. ABDOMEN: Soft, not distended. EXTREMITIES: No edema. Moves extremities equally. LABORATORY DATA: White cell count 10.1, hemoglobin 9.4, platelets 297, 89% neutrophils. D-dimer is at 0.87, last time checked a few days ago, and he has not had a repeat ferritin or C-reactive protein since the . He is currently receiving Decadron. I think he finished his remdesivir. Today will be the 16th day of the illness. Chest x-ray this morning demonstrated pleural opacity, left base, some progression with that, patchy ill-defined areas of parenchymal infiltrate similar to prior study. ASSESSMENT AND DISCUSSION: Cardiomyopathy, AICD, multi-infarct dementia, hypoxemia, severe COVID pneumonia, oxygen supplementation requirements are steady, but his O2 saturations are improving, so hopefully, in the next few days, we will see a decrease in the requirements. Currently, on Decadron, to be continued. We will repeat his inflammatory markers. Job ID: [id number]
[2020-08-15] MEDS: Donepezil HCl 10 MG TAB PO SCH (21:17)
[2020-08-15] MEDS: Lactated Ringer's 1,000 ML IV SCH (21:17)
[2020-08-15] MEDS: Atorvastatin Calcium 10 MG TAB PO SCH (21:18)
[2020-08-15] MEDS: Famotidine/PF 20 mg/2ml Vial SLOW IVP SCH (21:18)
[2020-08-15] MEDS: Montelukast Sodium 10 mg Tablet PO SCH (21:19)
[2020-08-15] MEDS: Divalproex Sodium 125 mg Sprinkle Capsule PO SCH (21:19)
[2020-08-15] MEDS: OLANZapine 2.5 MG TAB PO SCH (21:19)
[2020-08-15] MEDS: hydrOXYzine 25 MG TAB PO PRN (21:20)
[2020-08-16] MEDS: Ipratropium/Albuterol Sulfate 4 GM AER IH SCH ×4 (00:04→20:37)
[2020-08-16] MEDS: PROVENTIL INHALER 6.7 G (200 INHALATIONS) INH SCH ×6 (02:27→22:21)
--- NOTE | 2020-08-16 06:15 | PDOC.FM ---
- Subjective Subjective: Patient was sleeping comfortably in bed at the time of evaluation. Per chart review, Nursing Staff noted the patient to be hypoglycemic in the low 40s on AM Accucheck. Patient was given juice and pudding - repeat Accucheck was > 70. - Objective Vital Signs & Weight: Vital Signs (12 hours) Temp Pulse Resp BP Pulse Ox 08/16/20 04:30 97.7 F 62 21 H 136/65 98 08/16/20 00:00 60 20 96 08/15/20 20:55 97.9 F 61 20 131/63 96 Weight Admit Weight 72.121 kg Weight 72.121 kg I&O: 08/14/20 08/15/20 08/16/20 06:59 06:59 06:59 Intake Total 1410 900 Balance 1410 900 Result Diagrams: 08/13/20 06:00 08/13/20 06:00 Phys Exam - Physical Examination Constitutional: NAD HEENT: moist MMs, oral pharynx no lesions Neck: supple Respiratory: no wheezing, no rales, no rhonchi, clear to auscultation bilateral Cardiovascular: RRR, no significant murmur, no rub Gastrointestinal: soft, non-tender, no distention, positive bowel sounds Musculoskeletal: pulses present Dx/Plan (1) Acute respiratory failure with hypoxia Code(s): J96.01 - ACUTE RESPIRATORY FAILURE WITH HYPOXIA Status: Acute (2) COVID-19 Code(s): U07.1 - COVID-19 Status: Acute (3) Seizures Code(s): R56.9 - UNSPECIFIED CONVULSIONS Status: Chronic (4) Pancytopenia Code(s): D61.818 - OTHER PANCYTOPENIA Status: Acute (5) CKD (chronic kidney disease) Code(s): N18.9 - CHRONIC KIDNEY DISEASE, UNSPECIFIED Status: Chronic (6) HLD (hyperlipidemia) Code(s): E78.5 - HYPERLIPIDEMIA, UNSPECIFIED Status: Chronic (7) HTN (hypertension) Code(s): I10 - ESSENTIAL (PRIMARY) HYPERTENSION Status: Chronic (8) Dementia Code(s): F03.90 - UNSPECIFIED DEMENTIA WITHOUT BEHAVIORAL DISTURBANCE Status: Chronic (9) A-fib Code(s): I48.91 - UNSPECIFIED ATRIAL FIBRILLATION Status: Chronic - Plan Plan: Patient is an 80 y/o male with a PMH significant for COPD and Dementia who presents from a [place] for evaluation of worsening cough with increased sputum production, fever, and acute worsening of baseline Dementia. 1. Acute Hypoxic Respiratory Failure, 2/2 COVID PNA -Start of COVID Symptoms: 07/30/20 -Positive Test: 08/01/20 -Currently on HFNC 50%/50L - will continue to wean as appropriate -Dr. Abbasi (ID): Consulted -s/p Azithromycin, Remdesivir and Convalescent Plasma -Dexamethasone 6 mg IV BID -PO Albuterol initiated due to poor coordination for inhalers -Improvement in inflammatory markers -Serial CXRs: Enlarging pleural effusion noted on 08/15 - s/p Lasix 20 mg IV x1 - repeat CXR official read currently pending -Palliative Care: Consulted, will continue to discuss Goals of Care / End of Life Planning w/ Patient's Daughter (MPOA) 2. Sepsis, 2/2 above -s/p Cefepime, Azithromycin -Procal 0.27 - downtrended -UCx: Negative -BCx: Negative 3. Acute Metabolic Encephalopathy, 2/2 above -Sepsis treated - will continue home medication regimen for Alzheimer's -CT Brain: Negative 4. CKD 3 -Stable, will continue to monitor 5. Pancytopenia -Improving, will continue to monitor 6. Atrial Fibrillation -Currently rate controlled -Will continue home regimens of Eliquis, Metoprolol, and Digoxin 7. COPD -Due to poor cooperation, will attempt to treat with PO Albuterol and Singulair 9. GERD -Famotidine IV 10. Alzheimer's Dementia -Will continue home regimen of Olanzapine, Clonazepam and Donepezil -Lorazepam PRN, Geodon PRN, and Hydroxyzine PRN for agitation 11. Hx of Seizures -Will continue home Depakote regimen 12. Hx of CVA -Will continue home ASA and Atorvastatin 13. HTN -Will continue patient's home medication regimen with additional Amlodipine 2.5 mg PO daily added on - may titrate up based on clinical course 14. Hyperglycemia -Likely 2/2 prolonged steroid use -Per Nursing Staff, patient had Hypoglycemia x1 - decreased Lantus from 10u QAM to 5u QAM -No severe-range POC Glucose readings noted -Mild SSI -Hypoglycemia Protocol Code: DNAR - confirmed with Patient's Daughter (MPOA) PCP: Isaura Diet: Regular w/ Thickened Textures and Enlive per Speech Therapy / Dietary Fluids: LR @ 60ml VTE PPx: Apixaban 2.5 mg PO BID GI PPx: Famotidine Social: Will update patient's daughter PRN (Opal Delgado: [phone]) Dispo: Patient's overall clinical picture is stable but regrettably unfavorable with regards to high risk of mortality. Overall no improvement in respiratory status. BP consistently elevated during hospitalization - will not attempt to treat aggressively. Palliative Care consulted and assisting daughter with Goals of Care / End of Life discussions, with a current investigation into the feas ibility of utilizing HFNC with NH or HBV ongoing - recs appreciated. Expected LOS > 48H.
--- NOTE | 2020-08-16 07:50 | RAD ---
Chest one view HISTORY: COVID pneumonia. Follow-up. COMPARISON: 08/15/2015. FINDINGS: Cardiac silhouette is magnified and enlarged. Common vasculature upper limits of. Patient rotated rightward slightly. Hazy opacity at the left base is unchanged from the previous exam. Linear atelectasis at the right mi d lung is stable. No evidence of pneumothorax. IMPRESSION : Left pleural fluid/basilar atelectasis and linear atelectasis right lung are stable.
[2020-08-16] MEDS: Insulin Glargine 5 UNITS in Pre-Filled Syringe 1 EACH SC SCH ×2 (08:30→09:06)
[2020-08-16] MEDS: OXcarbazepine 150 MG TAB PO SCH ×2 (08:51→20:36)
[2020-08-16] MEDS: Digoxin 0.125 MG TAB PO SCH (08:53)
[2020-08-16] MEDS: Aspirin 81 mg Enteric Coated Tablet PO SCH (08:53)
[2020-08-16] MEDS: Amlodipine 5 MG TAB PO SCH (08:53)
[2020-08-16] MEDS: Furosemide 40 MG TAB PO SCH (08:54)
[2020-08-16] MEDS: Docusate 100 MG CAP PO SCH (08:54)
[2020-08-16] MEDS: Apixaban 2.5 MG TAB PO SCH ×2 (08:54→20:36)
[2020-08-16] MEDS: Dexamethasone 6 MG in Sodium Chloride 0.9% 50 ML IVPB SCH ×2 (08:55→21:44)
[2020-08-16 09:25] LABS: Anion Gap 13 mmol/L (10-20); BUN (Urea Nitrogen) 32 mg/dL (8.4-25.7); Calc. Creatinine Clearance 50 mL/min (70-130); Calcium 7.6 mg/dL (7.8-10.44); Carbon Dioxide 26 mmol/L (23-31); Chloride 101 mmol/L (98-107); Estimated GFR-MDRD 58; Glucose 217 mg/dL (83-110); Potassium 4.7 mmol/L (3.5-5.1); Sodium 135 mmol/L (136-145)
[2020-08-16] MEDS: Lactated Ringer's 1,000 ML IV SCH (12:49)
--- NOTE | 2020-08-16 14:39 | PRG ---
DATE OF SERVICE: 08/16/2020 Mr. Garduno continues on high-flow O2 with really no significant clinical changes. Job ID: [id number]
[2020-08-16] MEDS: Atorvastatin Calcium 10 MG TAB PO SCH (20:36)
[2020-08-16] MEDS: Montelukast Sodium 10 mg Tablet PO SCH (20:36)
[2020-08-16] MEDS: Donepezil HCl 10 MG TAB PO SCH (20:36)
[2020-08-16] MEDS: OLANZapine 2.5 MG TAB PO SCH (20:36)
[2020-08-16] MEDS: Famotidine/PF 20 mg/2ml Vial SLOW IVP SCH (20:37)
[2020-08-16] MEDS: hydrOXYzine 25 MG TAB PO PRN (20:40)
[2020-08-16] MEDS: Divalproex Sodium 125 mg Sprinkle Capsule PO SCH (20:40)
[2020-08-17] MEDS: Acetaminophen 500 MG TAB PO PRN ×2 (00:01→08:12)
[2020-08-17] MEDS: Ipratropium/Albuterol Sulfate 4 GM AER IH SCH ×4 (01:35→20:00)
[2020-08-17] MEDS: PROVENTIL INHALER 6.7 G (200 INHALATIONS) INH SCH ×6 (02:27→21:36)
[2020-08-17] MEDS: Lactated Ringer's 1,000 ML IV SCH ×2 (05:07→21:36)
--- NOTE | 2020-08-17 05:48 | PDOC.FM ---
- Subjective Subjective: Patient was resting comfortably in bed at the time of evaluation. He was in no acute distress, but continuing to require HFNC. His mental status was at baseline. No acute overnight events were reported by the Resident Night Team or Nursing Staff. - Objective Vital Signs & Weight: Vital Signs (12 hours) Temp Pulse Resp BP Pulse Ox 08/17/20 04:28 96 08/17/20 00:00 97.9 F 59 L 20 156/77 H 96 08/16/20 20:45 97.5 F L 60 23 H 122/78 95 Weight Admit Weight 72.121 kg Weight 72.121 kg I&O: 08/15/20 08/16/20 08/17/20 06:59 06:59 06:59 Intake Total 2450 Balance 2450 Result Diagrams: 08/13/20 06:00 08/16/20 08:21 Phys Exam - Physical Examination Constitutional: NAD HEENT: moist MMs, oral pharynx no lesions Neck: supple, full ROM Respiratory: no wheezing, no rales, no rhonchi, clear to auscultation bilateral Cardiovascular: RRR, no significant murmur, no rub Gastrointestinal: soft, non-tender, no distention, positive bowel sounds Musculoskeletal: no edema, pulses present Neurological: non-focal, moves all 4 limbs Deviation from normal: A&Ox0 Deviation from normal: Stable skin tears - no active bleeding noted Dx/Plan (1) Acute respiratory failure with hypoxia Code(s): J96.01 - ACUTE RESPIRATORY FAILURE WITH HYPOXIA Status: Acute (2) COVID-19 Code(s): U07.1 - COVID-19 Status: Acute (3) Seizures Code(s): R56.9 - UNSPECIFIED CONVULSIONS Status: Chronic (4) Pancytopenia Code(s): D61.818 - OTHER PANCYTOPENIA Status: Acute (5) CKD (chronic kidney disease) Code(s): N18.9 - CHRONIC KIDNEY DISEASE, UNSPECIFIED Status: Chronic (6) HLD (hyperlipidemia) Code(s): E78.5 - HYPERLIPIDEMIA, UNSPECIFIED Status: Chronic (7) HTN (hypertension) Code(s): I10 - ESSENTIAL (PRIMARY) HYPERTENSION Status: Chronic (8) Dementia Code(s): F03.90 - UNSPECIFIED DEMENTIA WITHOUT BEHAVIORAL DISTURBANCE Status: Chronic (9) A-fib Code(s): I48.91 - UNSPECIFIED ATRIAL FIBRILLATION Status: Chronic - Plan Plan: Patient is an 80 y/o male with a PMH significant for COPD and Dementia who presents from a [place] for evaluation of worsening cough with increased sputum production, fever, and acute worsening of baseline Dementia. 1. Acute Hypoxic Respiratory Failure, 2/2 COVID PNA -Start of COVID Symptoms: 07/30/20 -Positive Test: 08/01/20 -Currently on HFNC 50%/50L - will continue to wean as appropriate -Dr. Abbasi (ID): Consulted - recs appreciated -s/p Azithromycin, Remdesivir and Convalescent Plasma, as well as Vancomycin, Cefepime and Levofloxacin -Dexamethasone 6 mg IV BID - DC'd on 08/17 -PO Albuterol initiated due to poor coordination for inhalers -Improvement in inflammatory markers -Serial CXRs: Enlarging pleural effusion noted on 08/15 - s/p Lasix 20 mg IV x1 - repeat CXR did not demonstrate acute worsening - serial CXRs DC'd on 08/17 -Palliative Care: Consulted, will continue to discuss Goals of Care / End of Life Planning w/ Patient's Daughter (MPOA) 2. Sepsis, 2/2 above -s/p Cefepime, Azithromycin -Procal 0.27 - downtrended -UCx: Negative -BCx: Negative 3. Acute Metabolic Encephalopathy, 2/2 above -Sepsis treated - will continue home medication regimen for Alzheimer's -CT Brain: Negative 4. CKD 3 -Stable, will continue to monitor 5. Pancytopenia -Improving, will continue to monitor 6. Atrial Fibrillation -Currently rate controlled -Will continue home regimens of Eliquis, Metoprolol, and Digoxin 7. COPD -Due to poor cooperation, will attempt to treat with PO Albuterol and Singulair 9. GERD -Famotidine IV 10. Alzheimer's Dementia -Will continue home regimen of Olanzapine, Clonazepam and Donepezil -Lorazepam PRN, Geodon PRN, and Hydroxyzine PRN for agitation 11. Hx of Seizures -Will continue home Depakote regimen 12. Hx of CVA -Will continue home ASA and Atorvastatin 13. HTN -Will continue patient's home medication regimen with additional Amlodipine 2.5 mg PO daily added on - may titrate up based on clinical course 14. Hyperglycemia -Likely 2/2 prolonged steroid use -Per Nursing Staff, patient had Hypoglycemia x1 - decreased Lantus from 10u QAM to 5u QAM -Mild SSI - DC'd based on normal-range POC Glucose readings and 1 episode of hypoglycemia -Hypoglycemia Protocol -DC'd Dexamethasone on 08/17 - likely causative factor Code: DNAR - confirmed with Patient's Daughter (MPOA) PCP: Isaura Diet: Regular w/ Thickened Textures and Enlive per Speech Therapy / Dietary Fluids: LR @ 60ml VTE PPx: Apixaban 2.5 mg PO BID GI PPx: Famotidine Social: Will update patient's daughter PRN (Opal Danny: [phone]) Dispo: Patient's overall clinical picture is stable but regrettably unfavorable with regards to high risk of mortality. Overall no improvement in respiratory status for the past several days. BP consistently elevated during hospitalization - will not attempt to treat aggressively. Palliative Care consulted and assisting daughter with Goals of Care / End of Life discussions, with a current investigation into the feasibility of utilizing HFNC with NH or HBV ongoing - recs appreciated. Expected LOS < 48H.
[2020-08-17] MEDS: Docusate 100 MG CAP PO SCH (07:59)
[2020-08-17] MEDS: Aspirin 81 mg Enteric Coated Tablet PO SCH (07:59)
[2020-08-17] MEDS: Apixaban 2.5 MG TAB PO SCH ×2 (07:59→21:00)
[2020-08-17] MEDS: Digoxin 0.125 MG TAB PO SCH ×2 (08:00→10:31)
[2020-08-17] MEDS: Amlodipine 5 MG TAB PO SCH (08:00)
[2020-08-17] MEDS: Furosemide 40 MG TAB PO SCH (08:01)
[2020-08-17] MEDS: OXcarbazepine 150 MG TAB PO SCH ×2 (08:01→21:02)
[2020-08-17] MEDS: Bacitracin 1 PK TOP PRN (08:01)
--- NOTE | 2020-08-17 09:18 | RAD ---
CHEST 1 VIEW PORTABLE: Date: 08/17/2020 HISTORY: COVID pneumonia. COMPARISON: 08/16/2020. FINDINGS: Again noted are some pleural and parenchymal opacity changes, particularly over the left mid and lowe r lung zone, with some patchy interstitial and linear parenchymal changes in the mid lung zones. Ques tionable nodular opacity over the right upper lobe. IMPRESSION: 1. Stable pleural and parenchymal opacity changes in the left chest. 2. Bilateral linear and interstitial parenchymal changes also stable. 3. Evidence for a nodular density approximating 1.0 cm in size overlying the lateral aspect of the r ight suprahilar region. CODE LN. POS: RRE
--- NOTE | 2020-08-17 11:55 | PRG ---
DATE OF SERVICE: 08/17/2020 Mr. Garduno is unchanged clinically, but in no acute distress. Still requiring high-flow O2. His daughter who seems to have his power of divorce attorney is leaning towards reducing his care and giving comfort care only. We will await her final decisions along with her family. Job ID: [id number]
[2020-08-17] MEDS: Montelukast Sodium 10 mg Tablet PO SCH (21:00)
[2020-08-17] MEDS: hydrOXYzine 25 MG TAB PO PRN (21:00)
[2020-08-17] MEDS: Donepezil HCl 10 MG TAB PO SCH (21:00)
[2020-08-17] MEDS: Divalproex Sodium 125 mg Sprinkle Capsule PO SCH (21:00)
[2020-08-17] MEDS: Atorvastatin Calcium 10 MG TAB PO SCH (21:00)
[2020-08-17] MEDS: Famotidine/PF 20 mg/2ml Vial SLOW IVP SCH (21:01)
[2020-08-17] MEDS: OLANZapine 2.5 MG TAB PO SCH (21:25)
[2020-08-18] MEDS: Dextrose 50% Abboject 50 ML SYRINGE IVP PRN (00:28)
[2020-08-18] MEDS: Ipratropium/Albuterol Sulfate 4 GM AER IH SCH ×4 (01:03→19:06)
[2020-08-18] MEDS: PROVENTIL INHALER 6.7 G (200 INHALATIONS) INH SCH ×6 (02:30→21:36)
--- NOTE | 2020-08-18 05:16 | PDOC.FM ---
- Subjective Subjective: Patient was sleeping at the time of evaluation - did not attempt to wake. Per discussion with the Nursing Staff, patient had 1 episode of hypoglycemia, with an average recorded POC Glucose in the 40s, which responded well to Hypoglycemia Protocol and peanut butter. - Objective Vital Signs & Weight: Vital Signs (12 hours) Temp Pulse Resp BP Pulse Ox 08/18/20 00:00 97 F L 54 L 20 120/52 L 100 08/17/20 20:00 98 F 60 20 140/75 100 Weight Admit Weight 72.121 kg Weight 72.121 kg I&O: 08/16/20 08/17/20 08/18/20 06:59 06:59 06:59 Intake Total 2450 1000 Balance 2450 1000 Result Diagrams: 08/13/20 06:00 08/16/20 08:21 Phys Exam - Physical Examination Constitutional: NAD HEENT: sclera anicteric, oral pharynx no lesions Mild crusted blood noted on upper lip - no active bleeding Neck: supple Respiratory: no wheezing, no rales, no rhonchi, clear to auscultation bilateral Tachypnea, w/ RR measured directly at 32 Cardiovascular: RRR, no significant murmur, no rub Gastrointestinal: soft, non-tender, no distention Musculoskeletal: no edema, pulses present Neurological: non-focal Deviation from normal: Unable to complete exam Deviation from normal: Skin tears appear stable, no active bleeding, oozing or strikethrough Dx/Plan (1) Acute respiratory failure with hypoxia Code(s): J96.01 - ACUTE RESPIRATORY FAILURE WITH HYPOXIA Status: Acute (2) COVID-19 Code(s): U07.1 - COVID-19 Status: Acute (3) Seizures Code(s): R56.9 - UNSPECIFIED CONVULSIONS Status: Chronic (4) Pancytopenia Code(s): D61.818 - OTHER PANCYTOPENIA Status: Acute (5) CKD (chronic kidney disease) Code(s): N18.9 - CHRONIC KIDNEY DISEASE, UNSPECIFIED Status: Chronic (6) HLD (hyperlipidemia) Code(s): E78.5 - HYPERLIPIDEMIA, UNSPECIFIED Status: Chronic (7) HTN (hypertension) Code(s): I10 - ESSENTIAL (PRIMARY) HYPERTENSION Status: Chronic (8) Dementia Code(s): F03.90 - UNSPECIFIED DEMENTIA WITHOUT BEHAVIORAL DISTURBANCE Status: Chronic (9) A-fib Code(s): I48.91 - UNSPECIFIED ATRIAL FIBRILLATION Status: Chronic - Plan Plan: Patient is an 80 y/o male with a PMH significant for COPD and Dementia who presents from a [place] for evaluation of worsening cough with increased sputum production, fever, and acute worsening of baseline Dementia. 1. Acute Hypoxic Respiratory Failure, 2/2 COVID PNA -Start of COVID Symptoms: 07/30/20 -Positive Test: 08/01/20 -Currently on HFNC 50L/57% - will continue to monitor -Dr. Abbasi (ID): Consulted - recs appreciated -s/p Azithromycin, Remdesivir and Convalescent Plasma, as well as Vancomycin, Cefepime and Levofloxacin -Dexamethasone 6 mg IV BID - DC'd on 08/17 -PO Albuterol initiated due to poor coordination for inhalers -Improvement in inflammatory markers -Serial CXRs: Enlarging pleural effusion noted on 08/15 - s/p Lasix 20 mg IV x1 - repeat CXR did not demonstrate acute worsening - serial CXRs DC'd on 08/17 -Palliative Care / Case Management: Consulted, will continue to discuss Goals of Care / End of Life Planning w/ Patient's Daughter (MPOA) 2. Sepsis, 2/2 above -s/p Cefepime, Azithromycin -Procal 0.27 - downtrended -UCx: Negative -BCx: Negative 3. Acute Metabolic Encephalopathy, 2/2 above -Sepsis treated - will continue home medication regimen for Alzheimer's -CT Brain: Negative 4. CKD 3 -Stable, will continue to monitor 5. Pancytopenia -Improving, will continue to monitor 6. Atrial Fibrillation -Currently rate controlled -Will continue home regimens of Eliquis, Metoprolol, and Digoxin 7. COPD -Due to poor cooperation, will attempt to treat with PO Albuterol and Singulair 9. GERD -Famotidine IV 10. Alzheimer's Dementia -Will continue home regimen of Olanzapine, Clonazepam and Donepezil -Lorazepam PRN, Geodon PRN, and Hydroxyzine PRN for agitation 11. Hx of Seizures -Will continue home Depakote regimen 12. Hx of CVA -Will continue home ASA and Atorvastatin 13. HTN -Will continue patient's home medication regimen with additional Amlodipine 2.5 mg PO daily added on - may titrate up based on clinical course 14. Hyperglycemia -Likely 2/2 prolonged steroid use -Per Nursing Staff, patient had Hypoglycemia x1 - decreased Lantus from 10u QAM to 5u QAM - now DC'd -Mild SSI - DC'd based on normal-range POC Glucose readings and 1 episode of hypoglycemia -Hypoglycemia Protocol -DC'd Dexamethasone on 08/17 - likely causative factor Code: DNAR - confirmed with Patient's Daughter (MPOA) PCP: Isaura Diet: Regular w/ Thickened Textures and Enlive per Speech Therapy / Dietary Fluids: LR @ 60ml VTE PPx: Apixaban 2.5 mg PO BID GI PPx: Famotidine Social: Will update patient's daughter PRN (Opal Delgado: [phone]) Dispo: Patient's overall clinical picture is stable but regrettably unfavorable with regards to high risk of mortality. Overall no improvement in respiratory status for the past several days. BP consistently elevated during hospita lization - will not attempt to treat aggressively. Palliative Care consulted and assisting daughter with Goals of Care / End of Life discussions, with a current investigation into the feasibility of utilizing HFNC with NH or HBV ongoing - recs appreciated. Will contact daughter this AM to discuss wishes further. Expected LOS < 48H. Addendum - Attending - Attending Attestation Date/Time: 08/18/20 [id number] I personally evaluated the patient and discussed the management with Dr. Glover I agree with the History, Examination, Assessment and Plan documented above with any addition or exceptions noted below superintendent container terminal prognosis remains poor.
[2020-08-18] MEDS: Furosemide 40 MG TAB PO SCH (09:49)
[2020-08-18] MEDS: Amlodipine 5 MG TAB PO SCH (09:49)
[2020-08-18] MEDS: Digoxin 0.125 MG TAB PO SCH (09:49)
[2020-08-18] MEDS: OXcarbazepine 150 MG TAB PO SCH ×2 (09:50→21:33)
[2020-08-18] MEDS: Aspirin 81 mg Enteric Coated Tablet PO SCH (09:51)
[2020-08-18] MEDS: Docusate 100 MG CAP PO SCH (09:52)
[2020-08-18] MEDS: Apixaban 2.5 MG TAB PO SCH ×2 (09:52→21:33)
[2020-08-18] MEDS: Lactated Ringer's 1,000 ML IV SCH (13:42)
[2020-08-18] MEDS: Famotidine/PF 20 mg/2ml Vial SLOW IVP SCH (21:32)
[2020-08-18] MEDS: Atorvastatin Calcium 10 MG TAB PO SCH (21:33)
[2020-08-18] MEDS: Donepezil HCl 10 MG TAB PO SCH (21:33)
[2020-08-18] MEDS: Divalproex Sodium 125 mg Sprinkle Capsule PO SCH (21:33)
[2020-08-18] MEDS: Montelukast Sodium 10 mg Tablet PO SCH (21:33)
[2020-08-18] MEDS: hydrOXYzine 25 MG TAB PO PRN (21:34)
[2020-08-18] MEDS: OLANZapine 2.5 MG TAB PO SCH (21:36)
[2020-08-19] MEDS: Ipratropium/Albuterol Sulfate 4 GM AER IH SCH ×4 (00:15→18:18)
[2020-08-19] MEDS: PROVENTIL INHALER 6.7 G (200 INHALATIONS) INH SCH ×5 (02:03→18:18)
[2020-08-19] MEDS: Acetaminophen 500 MG TAB PO PRN (04:17)
[2020-08-19] MEDS: Lactated Ringer's 1,000 ML IV SCH ×2 (04:37→21:07)
--- NOTE | 2020-08-19 04:49 | PDOC.FM ---
- Subjective Subjective: Patient was sleeping comfortably in soft restraints at the time of evaluation - did not attempt to awaken. No acute overnight events were reported by the Resident Night Team or Nursing Staff. - Objective Vital Signs & Weight: Vital Signs (12 hours) Temp Pulse Resp BP Pulse Ox 08/19/20 04:31 98.1 F 62 24 H 165/68 H 97 08/19/20 00:00 59 L 22 H 100 08/18/20 21:15 97.9 F 65 24 H 125/69 100 Weight Admit Weight 72.121 kg Weight 72.121 kg I&O: 08/17/20 08/18/20 08/19/20 06:59 06:59 06:59 Intake Total 1000 1100 Balance 1000 1100 Result Diagrams: 08/13/20 06:00 08/16/20 08:21 Phys Exam - Physical Examination Constitutional: NAD HEENT: moist MMs, oral pharynx no lesions Neck: supple Respiratory: no wheezing, no rales, no rhonchi Non-tachypneic Cardiovascular: no significant murmur, no rub Irregularly Irregular - rate-controlled Gastrointestinal: soft, non-tender, no distention, positive bowel sounds Musculoskeletal: no edema, pulses present Neurological: non-focal Deviation from normal: Unable Deviation from normal: Stable skin tears - no bleeding or oozing Dx/Plan (1) Acute respiratory failure with hypoxia Code(s): J96.01 - ACUTE RESPIRATORY FAILURE WITH HYPOXIA Status: Acute (2) COVID-19 Code(s): U07.1 - COVID-19 Status: Acute (3) Seizures Code(s): R56.9 - UNSPECIFIED CONVULSIONS Status: Chronic (4) Pancytopenia Code(s): D61.818 - OTHER PANCYTOPENIA Status: Acute (5) CKD (chronic kidney disease) Code(s): N18.9 - CHRONIC KIDNEY DISEASE, UNSPECIFIED Status: Chronic (6) HLD (hyperlipidemia) Code(s): E78.5 - HYPERLIPIDEMIA, UNSPECIFIED Status: Chronic (7) HTN (hypertension) Code(s): I10 - ESSENTIAL (PRIMARY) HYPERTENSION Status: Chronic (8) Dementia Code(s): F03.90 - UNSPECIFIED DEMENTIA WITHOUT BEHAVIORAL DISTURBANCE Status: Chronic (9) A-fib Code(s): I48.91 - UNSPECIFIED ATRIAL FIBRILLATION Status: Chronic - Plan Plan: Patient is an 80 y/o male with a PMH significant for COPD and Dementia who presents from a [place] for evaluation of worsening cough with increased sputum p roduction, fever, and acute worsening of baseline Dementia. 1. Acute Hypoxic Respiratory Failure, 2/2 COVID PNA -Start of COVID Symptoms: 07/30/20 -Positive Test: 08/01/20 -Currently on HFNC 50L/57% - will continue to monitor -Dr. Abbasi (ID): Consulted - recs appreciated -s/p Azithromycin, Remdesivir and Convalescent Plasma, as well as Vancomycin, Cefepime and Levofloxacin -Dexamethasone 6 mg IV BID - DC'd on 08/17 -PO Albuterol initiated due to poor coordination for inhalers -Improvement in inflammatory markers -Serial CXRs: Enlarging pleural effusion noted on 08/15 - s/p Lasix 20 mg IV x1 - repeat CXR did not demonstrate acute worsening - serial CXRs DC'd on 08/17 -Palliative Care / Case Management: Consulted, will continue to discuss Goals of Care / End of Life Planning w/ Patient's Daughter (MPOA) 2. Sepsis, 2/2 above -s/p Cefepime, Azithromycin -Procal 0.27 - downtrended -UCx: Negative -BCx: Negative 3. Acute Metabolic Encephalopathy, 2/2 above -Sepsis treated - will continue home medication regimen for Alzheimer's -CT Brain: Negative 4. CKD 3 -Stable, will continue to monitor 5. Pancytopenia -Improving, will continue to monitor 6. Atrial Fibrillation -Currently rate controlled -Will continue home regimens of Eliquis, Metoprolol, and Digoxin 7. COPD -Due to poor cooperation, will attempt to treat with PO Albuterol and Singulair 9. GERD -Famotidine IV 10. Alzheimer's Dementia -Will continue home regimen of Olanzapine, Clonazepam and Donepezil -Lorazepam PRN, Geodon PRN, and Hydroxyzine PRN for agitation 11. Hx of Seizures -Will continue home Depakote regimen 12. Hx of CVA -Will continue home ASA and Atorvastatin 13. HTN -Will continue patient's home medication regimen with additional Amlodipine 2.5 mg PO daily added on - may titrate up based on clinical course 14. Hyperglycemia -Likely 2/2 prolonged steroid use -Per Nursing Staff, patient had Hypoglycemia x1 - decreased Lantus from 10u QAM to 5u QAM - now DC'd -Mild SSI - DC'd based on normal-range POC Glucose readings and 1 episode of hypoglycemia -Hypoglycemia Protocol -DC'd Dexamethasone on 08/17 - likely causative factor Code: DNAR - confirmed with Patient's Daughter (PAWAN) PCP: Isaura Diet: Regular w/ Thickened Textures and Enlive per Speech Therapy / Dietary Fluids: LR @ 60ml VTE PPx: Apixaban 2.5 mg PO BID GI PPx: Famotidine Social: Will update patient's daughter PRN (Opal Delgado: [phone]) Dispo: Patient's overall clinical picture is stable but regrettably unfavorable with regards to high risk of mortality. Overall no improvement in respiratory status for the past week. BP consistently elevated during hospitalization - low- dose Amlodipine added on but will not attempt to treat aggressively. Palliative Care consulted and assisting daughter with Goals of Care / End of Life discussions, with a current investigation into the feasibility of utilizing HFNC with NH or HBV ongoing - recs appreciated. Will contact daughter this AM to discuss wishes further. Will DC COVID Precautions today as patient is >21 days since symptom onset. Expected LOS < 48H. Addendum - Attending - Attending Attestation Date/Time: 08/19/20 7267 I personally evaluated the patient and discussed the management with Dr. Glover I agree with the History, Examination, Assessment and Plan documented above with any addition or exceptions noted below.
[2020-08-19] MEDS: OXcarbazepine 150 MG TAB PO SCH ×2 (10:14→21:06)
[2020-08-19] MEDS: Digoxin 0.125 MG TAB PO SCH (10:15)
[2020-08-19] MEDS: Aspirin 81 mg Enteric Coated Tablet PO SCH (10:15)
[2020-08-19] MEDS: Amlodipine 5 MG TAB PO SCH (10:16)
[2020-08-19] MEDS: Docusate 100 MG CAP PO SCH (10:19)
[2020-08-19] MEDS: Furosemide 40 MG TAB PO SCH (10:19)
[2020-08-19] MEDS: Apixaban 2.5 MG TAB PO SCH ×2 (10:19→21:05)
[2020-08-19] MEDS: Montelukast Sodium 10 mg Tablet PO SCH (21:05)
[2020-08-19] MEDS: Atorvastatin Calcium 10 MG TAB PO SCH (21:05)
[2020-08-19] MEDS: Donepezil HCl 10 MG TAB PO SCH (21:05)
[2020-08-19] MEDS: Divalproex Sodium 125 mg Sprinkle Capsule PO SCH (21:05)
[2020-08-19] MEDS: Famotidine/PF 20 mg/2ml Vial SLOW IVP SCH (21:05)
[2020-08-19] MEDS: OLANZapine 2.5 MG TAB PO SCH (21:06)
[2020-08-20] MEDS: Dextrose 50% Abboject 50 ML SYRINGE IVP PRN (00:48)
[2020-08-20] MEDS: PROVENTIL INHALER 6.7 G (200 INHALATIONS) INH SCH ×6 (04:19→22:34)
[2020-08-20] MEDS: Ipratropium/Albuterol Sulfate 4 GM AER IH SCH ×4 (04:19→19:52)
[2020-08-20] MEDS: Dextrose 5%-Lactated Ringers 1,000 ML IV SCH ×2 (05:11→22:34)
--- NOTE | 2020-08-20 07:52 | PDOC.FM ---
- Subjective Subjective: Pt is AAO x 1. He had no overnight events. He is no high flow oxygen this am. He is tolerating PO intake. Palliative is still waiting for daughter to answer to discuss inpt hospice. - Objective Vital Signs & Weight: Vital Signs (12 hours) Temp Pulse Resp BP Pulse Ox 08/20/20 04:00 98.4 F 60 18 186/73 H 98 08/20/20 00:00 98.4 F 64 17 135/75 100 08/19/20 20:00 97.6 F 65 20 136/71 93 L Weight Admit Weight 72.121 kg Weight 72.121 kg I&O: 08/19/20 08/20/20 08/21/20 06:59 06:59 06:59 Intake Total 0 Balance 0 Result Diagrams: 08/13/20 06:00 08/16/20 08:21 Phys Exam - Physical Examination Constitutional: NAD HEENT: PERRLA, moist MMs Respiratory: no wheezing, no rales Cardiovascular: RRR, no significant murmur Gastrointestinal: soft, no distention Musculoskeletal: no edema, pulses present Psychiatric: normal affect Dx/Plan (1) Acute respiratory failure with hypoxia Code(s): J96.01 - ACUTE RESPIRATORY FAILURE WITH HYPOXIA Status: Acute (2) COVID-19 Code(s): U07.1 - COVID-19 Status: Acute (3) Pancytopenia Code(s): D61.818 - OTHER PANCYTOPENIA Status: Acute (4) A-fib Code(s): I48.91 - UNSPECIFIED ATRIAL FIBRILLATION Status: Chronic (5) CKD (chronic kidney disease) Code(s): N18.9 - CHRONIC KIDNEY DISEASE, UNSPECIFIED Status: Chronic (6) Dementia Code(s): F03.90 - UNSPECIFIED DEMENTIA WITHOUT BEHAVIORAL DISTURBANCE Status: Chronic - Plan Plan: Patient is an 80 y/o male with a PMH significant for COPD and Dementia who presents from a [place] for evaluation of worsening cough with increased sputum production, fever, and acute worsening of baseline Dementia. 1. Acute Hypoxic Respiratory Failure, 2/2 COVID PNA -Start of COVID Symptoms: 07/30/20 -Positive Test: 08/01/20 -Currently on HFNC 50L/57% - will continue to monitor -Dr. Abbasi (ID): Consulted - recs appreciated -s/p Azithromycin, Remdesivir and Convalescent Plasma, as well as Vancomycin, Cefepime and Levofloxacin -Dexamethasone 6 mg IV BID - DC'd on 08/17 -PO Albuterol initiated due to poor coordination for inhalers -Improvement in inflammatory markers -Serial CXRs: Enlarging pleural effusion noted on 08/15 - s/p Lasix 20 mg IV x1 - repeat CXR did not demonstrate acute worsening - serial CXRs DC'd on 08/17 -Palliative Care / Case Management: Consulted, will continue to discuss Goals of Care / End of Life Planning w/ Patient's Daughter (MPOA) - Likely inpt hospice but will discuss with palliative today. 2. Sepsis, 2/2 above -s/p Cefepime, Azithromycin -Procal 0.27 - downtrended -UCx: Negative -BCx: Negative 3. Acute Metabolic Encephalopathy, 2/2 above -Sepsis treated - will continue home medication regimen for Alzheimer's -CT Brain: Negative 4. CKD 3 -Stable, will continue to monitor 5. Pancytopenia -Improving, will continue to monitor 6. Atrial Fibrillation -Currently rate controlled -Will continue home regimens of Eliquis, Metoprolol, and Digoxin 7. COPD -Due to poor cooperation, will attempt to treat with PO Albuterol and Singulair 9. GERD -Famotidine IV 10. Alzheimer's Dementia -Will continue home regimen of Olanzapine, Clonazepam and Donepezil -Lorazepam PRN, Geodon PRN, and Hydroxyzine PRN for agitation 11. Hx of Seizures -Will continue home Depakote regimen 12. Hx of CVA -Will continue home ASA and Atorvastatin 13. HTN -Will continue patient's home medication regimen with additional Amlodipine 2.5 mg PO daily added on - may titrate up based on clinical course 14. Hyperglycemia -Likely 2/2 prolonged steroid use -Per Nursing Staff, patient had Hypoglycemia x1 - decreased Lantus from 10u QAM to 5u QAM - now DC'd -Mild SSI - DC'd based on normal-range POC Glucose readings and 1 episode of hypoglycemia -Hypoglycemia Protocol -DC'd Dexamethasone on 08/17 - likely causative factor Code: DNAR - confirmed with Patient's Daughter (REJIA) PCP: Isaura Diet: Regular w/ Thickened Textures and Enlive per Speech Therapy / Dietary Fluids: LR @ 60ml VTE PPx: Apixaban 2.5 mg PO BID GI PPx: Famotidine Social: Will update patient's daughter PRN (Opal Delgado: [phone]) Dispo: Discuss inpt hospice with daughter today. Addendum - Attending - Attending Attestation Date/Time: 08/20/20 1381 I personally evaluated the patient and discussed the management with Dr. Edwards I agree with the History, Examination, Assessment and Plan documented above with any addition or exceptions noted below. Hypoxic Resp failure d/t [id number]. HFNC dependent. Chronic severe dementia. Discussing prognosis/palliative endof life care with MPOA daughter.
[2020-08-20] MEDS: Docusate 100 MG CAP PO SCH (09:30)
[2020-08-20] MEDS: Aspirin 81 mg Enteric Coated Tablet PO SCH (09:31)
[2020-08-20] MEDS: Amlodipine 5 MG TAB PO SCH (09:31)
[2020-08-20] MEDS: Furosemide 40 MG TAB PO SCH (09:32)
[2020-08-20] MEDS: Digoxin 0.125 MG TAB PO SCH (09:32)
[2020-08-20] MEDS: Apixaban 2.5 MG TAB PO SCH ×2 (09:32→19:50)
[2020-08-20] MEDS: OXcarbazepine 150 MG TAB PO SCH ×2 (09:41→19:49)
--- NOTE | 2020-08-20 15:16 | PRG ---
DATE OF SERVICE: 08/20/2020 SUBJECTIVE: The patient is lying in bed. He does not interact with the examiner, does not follow commands. OBJECTIVE: VITAL SIGNS: His temperature has been normal, pulse is 56, saturating at 100% on high-flow nasal cannula O2. He has been on high-flow nasal cannula O2 since he came into the hospital, probably can be attempted to titrate down to nasal cannula now that he is keeping consistent high saturations for the past 2 days. LUNGS: Symmetric air entry. HEART: S1 and S2, regular rate. ABDOMEN: Soft. NEUROLOGIC: He seems to be able to move extremities, but does not interact with the examiner. LABORATORY DATA: White cell count 10.1, hemoglobin 9.4, platelets 297, with 89% neutrophils. INR was 0.64, which is the lowest it has been since admission, and the ferritin was 129 the last time checked, and CRP went up to 2.43 on the , has not been repeated since. Last chest x-ray is from the and it shows stable pleural and parenchymal opacities, interstitial parenchymal changes. MEDICATIONS: 1. Inhalers. 2. Eliquis. 3. He is not on any corticosteroids any longer at this time. ASSESSMENT AND DISCUSSION: Cardiomyopathy, AICD, multi-infarct dementia, hypoxemia, severe COVID pneumonia, steady oxygen supplementation, but his O2 saturations are improving, so maybe we can try to decrease or titrate him down to nasal cannula. Looks like discussions about inpatient hospice are going to be carried out with the family. Job ID: [id number]
--- NOTE | 2020-08-20 18:29 | PDOC.EVN ---
Event Note - Event Note Event Note: Spoke with daughter, Opal - [phone], who has already signed paperwork for [facility]. Hospice has not evaluated pt for in hospice at this time. Will update daughter after hospice evaluates patient. She did not have questions. Arpit Edwards, DO 08/20/20 [id number]
[2020-08-20] MEDS: OLANZapine 2.5 MG TAB PO SCH (19:50)
[2020-08-20] MEDS: Donepezil HCl 10 MG TAB PO SCH (19:50)
[2020-08-20] MEDS: Divalproex Sodium 125 mg Sprinkle Capsule PO SCH (19:50)
[2020-08-20] MEDS: Atorvastatin Calcium 10 MG TAB PO SCH (19:51)
[2020-08-20] MEDS: Montelukast Sodium 10 mg Tablet PO SCH (19:51)
[2020-08-20] MEDS: Famotidine/PF 20 mg/2ml Vial SLOW IVP SCH (19:51)
[2020-08-21] MEDS: Ipratropium/Albuterol Sulfate 4 GM AER IH SCH ×3 (00:38→13:00)
[2020-08-21] MEDS: PROVENTIL INHALER 6.7 G (200 INHALATIONS) INH SCH ×2 (02:17→05:29)
[2020-08-21] MEDS: Dextrose 50% Abboject 50 ML SYRINGE IVP PRN (04:42)
--- NOTE | 2020-08-21 07:17 | PDOC.FM ---
- Subjective Subjective: Pt is unchanged from yesterday. He is currently AAO x 0. His daughter is moving towards to hospice. Hospice has not been by today to initiate transfer. His respiratory status is unchanged. - Objective Vital Signs & Weight: Vital Signs (12 hours) Temp Pulse Resp BP Pulse Ox 08/20/20 20:00 97.9 F 60 20 149/79 H 100 Weight Admit Weight 72.121 kg Weight 72.121 kg I&O: 08/20/20 08/21/20 08/22/20 06:59 06:59 06:59 Intake Total 0 1100 Balance 0 1100 Result Diagrams: 08/13/20 06:00 08/16/20 08:21 Phys Exam - Physical Examination Constitutional: NAD HEENT: PERRLA, moist MMs Neck: no JVD, full ROM bilateral crackles, rales Cardiovascular: RRR, no significant murmur Gastrointestinal: soft, positive bowel sounds Musculoskeletal: no edema, pulses present Neurological: moves all 4 limbs Skin: no rash Dx/Plan (1) Acute respiratory failure with hypoxia Code(s): J96.01 - ACUTE RESPIRATORY FAILURE WITH HYPOXIA Status: Acute (2) COVID-19 Code(s): U07.1 - COVID-19 Status: Acute (3) Pancytopenia Code(s): D61.818 - OTHER PANCYTOPENIA Status: Acute (4) A-fib Code(s): I48.91 - UNSPECIFIED ATRIAL FIBRILLATION Status: Chronic (5) CKD (chronic kidney disease) Code(s): N18.9 - CHRONIC KIDNEY DISEASE, UNSPECIFIED Status: Chronic (6) Dementia Code(s): F03.90 - UNSPECIFIED DEMENTIA WITHOUT BEHAVIORAL DISTURBANCE Status: Chronic - Plan Plan: 1. Acute Hypoxic Respiratory Failure, 2/2 COVID PNA -Palliative Care / Case Management: Consulted, will continue to discuss Goals of Care / End of Life Planning w/ Patient's Daughter (MPOA) - pending inpt hospice this morning 2. Sepsis, resolved -s/p Cefepime, Azithromycin -Procal 0.27 - downtrended -UCx: Negative -BCx: Negative 3. CKD 3 -Stable, will continue to monitor 4. Pancytopenia -Improving, will continue to monitor 5. Atrial Fibrillation -Currently rate controlled -Will continue home regimens of Eliquis, Metoprolol, and Digoxin 6. COPD -Due to poor cooperation, will attempt to treat with PO Albuterol and Singulair 7. GERD -Famotidine 8. Alzheimer's Dementia -Will continue home regimen of Olanzapine, Clonazepam and Donepezil -Lorazepam PRN, Geodon PRN, and Hydroxyzine PRN for agitation 9. Hx of Seizures -Will continue home Depakote regimen 10. Hx of CVA -Will continue home ASA and Atorvastatin 11. HTN -Will continue patient's home medication regimen with additional Amlodipine 2.5 mg PO daily 12. Discontinue all home medications with initiation of hospice Code: DNAR - confirmed with Patient's Daughter (MPOA) PCP: Isaura Diet: Regular w/ Thickened Textures and Enlive per Speech Therapy / Dietary VTE PPx: Apixaban 2.5 mg PO BID GI PPx: Famotidine Social: Will update patient's daughter PRN (Opal Delgado: [phone]) Dispo: pending hospice evaluation
[2020-08-21] MEDS: Apixaban 2.5 MG TAB PO SCH (11:30)
[2020-08-21] MEDS: Furosemide 40 MG TAB PO SCH (11:30)
[2020-08-21] MEDS: Digoxin 0.125 MG TAB PO SCH (11:30)
[2020-08-21] MEDS: Amlodipine 5 MG TAB PO SCH (11:30)
[2020-08-21] MEDS: Aspirin 81 mg Enteric Coated Tablet PO SCH (11:30)
[2020-08-21] MEDS: OXcarbazepine 150 MG TAB PO SCH (11:30)
[2020-08-21] MEDS: Docusate 100 MG CAP PO SCH (11:30)
[2020-08-21 13:51] VITALS: BP 145/64; TEMP 98
== END 2020-08-21 13:58 | disposition hospice, inpatient (51) | DRG 871 ==
LOC: ERS 07:42 → T4-A 10:29
PROVIDERS: ADMIT Internal Medicine; ATTEND Student in an Organized Health Care Education/Training Program
PROC: 8E0ZXY6 Isolation (ICD-10-PCS; principal; 2020-08-01)
PROC: XW033E5 Introduction of Remdesivir Anti-infective into Peripheral Vein, Percutaneous Approach, New Technology Group 5 (ICD-10-PCS; 2020-08-04)
PROC: XW13325 Transfusion of Convalescent Plasma (Nonautologous) into Peripheral Vein, Percutaneous Approach, New Technology Group 5 (ICD-10-PCS; 2020-08-05)
DX: A41.89 Other specified sepsis (principal); U07.1 COVID-19; J12.89 Other viral pneumonia; J96.01 Acute respiratory failure with hypoxia; G93.41 Metabolic encephalopathy; J44.0 Chronic obstructive pulmonary disease with (acute) lower respiratory infection; E87.2 Acidosis; D61.818 Other pancytopenia; I42.9 Cardiomyopathy, unspecified; I48.20 Chronic atrial fibrillation, unspecified; Z66 Do not resuscitate; F41.9 Anxiety disorder, unspecified; F28 Other psychotic disorder not due to a substance or known physiological condition; F32.9 Major depressive disorder, single episode, unspecified; E78.5 Hyperlipidemia, unspecified; K21.9 Gastro-esophageal reflux disease without esophagitis; G30.9 Alzheimer's disease, unspecified; G40.909 Epilepsy, unspecified, not intractable, without status epilepticus; K59.00 Constipation, unspecified; E11.22 Type 2 diabetes mellitus with diabetic chronic kidney disease; I12.9 Hypertensive chronic kidney disease with stage 1 through stage 4 chronic kidney disease, or unspecified chronic kidney disease; N18.30 Chronic kidney disease, stage 3 unspecified; F02.80 Dementia in other diseases classified elsewhere, unspecified severity, without behavioral disturbance, psychotic disturbance, mood disturbance, and anxiety; E11.65 Type 2 diabetes mellitus with hyperglycemia; T38.0X5A Adverse effect of glucocorticoids and synthetic analogues, initial encounter; Z86.73 Personal history of transient ischemic attack (TIA), and cerebral infarction without residual deficits; Z79.01 Long term (current) use of anticoagulants; Z79.02 Long term (current) use of antithrombotics/antiplatelets; Z79.82 Long term (current) use of aspirin; Z79.899 Other long term (current) drug therapy; Z95.810 Presence of automatic (implantable) cardiac defibrillator
CPT/HCPCS: 36415; 36416; 36430; 51701; 70450; 71045; 80048; 80053; 80076; 80162; 81003; 81015; 82728; 82805; 83605; 83615; 84145; 85025; 85060; 85379; 86140; 86850; 86900; 86901; 87086; 96361; 96365; 96375; J0456; J0692; J1100; J1610; J1815; J1940; J2060; J3370; J3486; J3490; J7050; P9017; S0028; U0002

== ENCOUNTER 2020-08-21 14:10 | Inpatient (IN) | payer OTHER ==
[2020-08-21 15:25] VITALS: BMI 24.1
[2020-08-21] MEDS ORDERED: chlorproMAZINE HCl 50 MG/2 ML AMP IM PRN ×2 (16:15)
[2020-08-21] MEDS ORDERED: diphenhydrAMINE 25 MG CAP PO PRN (16:15)
[2020-08-21] MEDS ORDERED: Haloperidol Lactate 5 MG/ML VIAL SLOW IVP PRN (16:15)
[2020-08-21] MEDS ORDERED: Morphine IR Tab 15 MG TAB PO PRN (16:15)
[2020-08-21] MEDS ORDERED: Acetaminophen 325 MG TAB PO PRN (16:15)
[2020-08-21] MEDS ORDERED: diphenhydrAMINE 50 MG/ML VIAL IVP PRN (16:15)
[2020-08-21] MEDS ORDERED: Zolpidem Tartrate 5 MG TAB PO PRN (16:15)
[2020-08-21] MEDS ORDERED: Ondansetron ODT 4 MG TAB PO PRN (16:15)
[2020-08-21] MEDS ORDERED: Promethazine HCl 25 MG SUPP PR PRN (16:15)
[2020-08-21] MEDS ORDERED: chlorproMAZINE HCl 25 MG in Sodium Chloride 0.9% 50 ML IVPB PRN (16:15)
[2020-08-21] MEDS ORDERED: Loperamide HCl 2 MG CAP PO PRN (16:15)
[2020-08-21] MEDS ORDERED: Scopolamine 1.5 mg/72 hour Patch TOP PRN (16:15)
[2020-08-21] MEDS ORDERED: Morphine 10 MG/0.5 ML ORAL SYRINGE SL PRN (16:15)
[2020-08-21] MEDS ORDERED: Lorazepam 1 MG TAB PO PRN ×2 (16:15)
[2020-08-21] MEDS ORDERED: Milk Of Magnesia 30 ML UDCUP PO PRN (16:15)
[2020-08-21] MEDS ORDERED: Acetaminophen 650 MG Suppository PR PRN (16:15)
[2020-08-21] MEDS ORDERED: Ondansetron PF 4 MG/2 ML Vial IVP PRN (16:15)
[2020-08-21] MEDS ORDERED: Ibuprofen 200 MG TAB PO PRN (16:27)
[2020-08-21] MEDS: Lorazepam 2 MG/ML VIAL SLOW IVP PRN (20:56)
[2020-08-22] MEDS: Lorazepam 2 MG/ML VIAL SLOW IVP PRN (04:32)
[2020-08-22] MEDS ORDERED: FLU VACC QS2020-21(65YR UP)/PF 240 MCG/0.7 ML SYRINGE IM ONE (09:00)
[2020-08-22] MEDS: Morphine 2 MG/ML VIAL SLOW IVP PRN ×3 (10:19→20:49)
[2020-08-22 14:32] LABS: SARS-CoV-2 NAA Rapid Test DETECTED (NotDetected)
[2020-08-23] MEDS: Lorazepam 2 MG/ML VIAL SLOW IVP PRN ×4 (00:31→22:27)
[2020-08-23] MEDS: Morphine 2 MG/ML VIAL SLOW IVP PRN ×4 (04:21→22:18)
--- NOTE | 2020-08-23 07:25 | PDOC.FM ---
- Subjective Subjective: Pt is here for hospice care. He is on [place] oxygen. He is responsive but has non- intelligible speech. I spoke with his daughter last night giving an update. She had few questions regarding medications. - Objective Vital Signs & Weight: Vital Signs (12 hours) Temp Pulse Resp BP Pulse Ox 08/22/20 20:25 97.6 F 61 20 161/70 H 91 L 08/22/20 20:00 91 L 08/22/20 19:40 97.6 F 60 20 145/74 H Weight Weight 72.121 kg I&O: 08/22/20 08/23/20 08/24/20 06:59 06:59 06:59 Intake Total 870 Output Total 475 875 Balance 395 -875 Phys Exam - Physical Examination Constitutional: NAD HEENT: sclera anicteric Neck: no JVD Respiratory: no wheezing, clear to auscultation bilateral Cardiovascular: RRR, no significant murmur Gastrointestinal: soft, no distention Musculoskeletal: no edema, pulses present Neurological: non-focal Dx/Plan (1) Acute respiratory failure with hypoxia Code(s): J96.01 - ACUTE RESPIRATORY FAILURE WITH HYPOXIA Status: Acute (2) COVID-19 Code(s): U07.1 - COVID-19 Status: Acute (3) CKD (chronic kidney disease) Code(s): N18.9 - CHRONIC KIDNEY DISEASE, UNSPECIFIED Status: Chronic (4) Dementia Code(s): F03.90 - UNSPECIFIED DEMENTIA WITHOUT BEHAVIORAL DISTURBANCE Status: Chronic (5) HLD (hyperlipidemia) Code(s): E78.5 - HYPERLIPIDEMIA, UNSPECIFIED Status: Chronic (6) HTN (hypertension) Code(s): I10 - ESSENTIAL (PRIMARY) HYPERTENSION Status: Chronic (7) Seizures Code(s): R56.9 - UNSPECIFIED CONVULSIONS Status: Chronic - Plan Plan: Pt is an 80 yo male here for: # Transitioned to Hospice Care #Acute Hypoxic Respiratory Failure, 2/2 COVID PNA -Pt is on hospice care -[place] supplemented oxygen Chronic Problems: # CKD 3 # Pancytopenia # Atrial Fibrillation # COPD # GERD # Alzheimer's Dementia # Hx of Seizures # Hx of CVA # HTN Code: DNAR - confirmed with Patient's Daughter (MPOA) PCP: Isaura Diet: Regular w/ Thickened Textures and Enlive per Speech Therapy / Dietary Social: Will update patient's daughter PRN (Opal Delgado: [phone]) Dispo: pt is on hospice
[2020-08-24] MEDS: Morphine 2 MG/ML VIAL SLOW IVP PRN ×3 (00:54→15:12)
[2020-08-24] MEDS: Lorazepam 2 MG/ML VIAL SLOW IVP PRN ×3 (02:56→22:04)
--- NOTE | 2020-08-24 08:04 | PDOC.FM ---
- Subjective Subjective: Pt made 100 mls of urine overnight. He is not eating. Discussed with daughter coming in to see him and charge nursed ok'ed. He is receiving morphine, ativan. - Objective Vital Signs & Weight: Weight Weight 72.121 kg I&O: 08/23/20 08/24/20 08/25/20 06:59 06:59 06:59 Output Total 875 300 Balance -875 -300 Phys Exam - Physical Examination Constitutional: NAD Neck: no JVD, supple Respiratory: no wheezing, clear to auscultation bilateral Cardiovascular: RRR, no significant murmur Gastrointestinal: soft, no distention Musculoskeletal: no edema, pulses present Deviation from normal: AAO x 0 Skin: no rash Dx/Plan (1) Acute respiratory failure with hypoxia Code(s): J96.01 - ACUTE RESPIRATORY FAILURE WITH HYPOXIA Status: Acute (2) COVID-19 Code(s): U07.1 - COVID-19 Status: Acute (3) CKD (chronic kidney disease) Code(s): N18.9 - CHRONIC KIDNEY DISEASE, UNSPECIFIED Status: Chronic (4) Dementia Code(s): F03.90 - UNSPECIFIED DEMENTIA WITHOUT BEHAVIORAL DISTURBANCE Status: Chronic (5) HLD (hyperlipidemia) Code(s): E78.5 - HYPERLIPIDEMIA, UNSPECIFIED Status: Chronic (6) HTN (hypertension) Code(s): I10 - ESSENTIAL (PRIMARY) HYPERTENSION Status: Chronic (7) Seizures Code(s): R56.9 - UNSPECIFIED CONVULSIONS Status: Chronic - Plan Plan: Pt is an 80 yo male here for: # Transitioned to Hospice Care - Daughter will attemp to see pt today #Acute Hypoxic Respiratory Failure, 2/2 COVID PNA -Pt is on hospice care -[place] supplemented oxygen Chronic Problems: # CKD 3 # Pancytopenia # Atrial Fibrillation # COPD # GERD # Alzheimer's Dementia # Hx of Seizures # Hx of CVA # HTN Code: DNAR - confirmed with Patient's Daughter (MPOA) PCP: Isaura Diet: Regular w/ Thickened Textures and Enlive per Speech Therapy / Dietary Social: Will update patient's daughter PRN (Opal Delgado: [phone]) Dispo: pt is on hospice
[2020-08-24] MEDS ORDERED: Bisacodyl 10 MG SUPP PR PRN (18:08)
[2020-08-24] MEDS: Hyoscyamine Sulfate SL 0.125 mg Tablet SL PRN (18:48)
[2020-08-25] MEDS: Morphine 2 MG/ML VIAL SLOW IVP PRN ×4 (01:03→20:13)
[2020-08-25] MEDS: Lorazepam 2 MG/ML VIAL SLOW IVP PRN ×4 (02:58→22:23)
--- NOTE | 2020-08-25 05:51 | PDOC.FM ---
- Subjective Subjective: Pt is not currently eating. He has little PO intake. His daughter was able to see him yesterday. She is coming back today. No overnight events. - Objective Vital Signs & Weight: Vital Signs (12 hours) Temp Pulse Resp BP Pulse Ox 08/24/20 20:00 98.2 F 60 20 109/65 94 L Weight Weight 72.121 kg I&O: 08/23/20 08/24/20 08/25/20 06:59 06:59 06:59 Output Total 875 300 250 Balance -875 -300 -250 Phys Exam - Physical Examination Constitutional: NAD HEENT: sclera anicteric, oral pharynx no lesions Neck: no JVD, full ROM Respiratory: no wheezing coarse breath sounds Cardiovascular: RRR, no significant murmur Gastrointestinal: soft, positive bowel sounds Musculoskeletal: no edema Neurological: moves all 4 limbs Deviation from normal: AAO x 0 Dx/Plan (1) Acute respiratory failure with hypoxia Code(s): J96.01 - ACUTE RESPIRATORY FAILURE WITH HYPOXIA Status: Acute (2) COVID-19 Code(s): U07.1 - COVID-19 Status: Acute (3) CKD (chronic kidney disease) Code(s): N18.9 - CHRONIC KIDNEY DISEASE, UNSPECIFIED Status: Chronic (4) Dementia Code(s): F03.90 - UNSPECIFIED DEMENTIA WITHOUT BEHAVIORAL DISTURBANCE Status: Chronic (5) HLD (hyperlipidemia) Code(s): E78.5 - HYPERLIPIDEMIA, UNSPECIFIED Status: Chronic (6) HTN (hypertension) Code(s): I10 - ESSENTIAL (PRIMARY) HYPERTENSION Status: Chronic (7) Seizures Code(s): R56.9 - UNSPECIFIED CONVULSIONS Status: Chronic - Plan Plan: Pt is an 80 yo male here for: # Transitioned to Hospice Care - Daughter will attemp to see pt today #Acute Hypoxic Respiratory Failure, 2/2 COVID PNA -Pt is on hospice care -[place] supplemented oxygen Chronic Problems: # CKD 3 # Pancytopenia # Atrial Fibrillation # COPD # GERD # Alzheimer's Dementia # Hx of Seizures # Hx of CVA # HTN Code: DNAR - confirmed with Patient's Daughter (MPOA) PCP: Isaura Diet: Regular w/ Thickened Textures and Enlive per Speech Therapy / Dietary Social: Will update patient's daughter PRN (Opal Delgado: [phone]) Dispo: pt is on hospice
[2020-08-25] MEDS: Scopolamine 1.5 mg/72 hour Patch TOP PRN ×2 (06:40→09:16)
[2020-08-25] MEDS: Hyoscyamine Sulfate SL 0.125 mg Tablet SL PRN (09:12)
[2020-08-25 20:53] VITALS: BP 128/66; TEMP 99.2
[2020-08-26] MEDS: Morphine 2 MG/ML VIAL SLOW IVP PRN ×2 (01:02→04:59)
[2020-08-26] MEDS: Lorazepam 2 MG/ML VIAL SLOW IVP PRN (03:07)
--- NOTE | 2020-08-26 06:57 | PDOC.FM ---
- Subjective Subjective: Pt is not producing much urine. He is not wanting to eat. Otherwise he is becoming less responsive to stimuli. His daughter did not come yesterday. She is apparently coming today. - Objective Vital Signs & Weight: Vital Signs (12 hours) Temp Pulse Resp BP Pulse Ox 08/25/20 21:00 93 L 08/25/20 20:00 99.2 F 84 26 H 128/66 93 L Weight Weight 72.121 kg I&O: 08/24/20 08/25/20 08/26/20 06:59 06:59 06:59 Intake Total 50 80 Output Total 300 400 280 Balance -300 -350 -200 Phys Exam - Physical Examination Constitutional: NAD HEENT: sclera anicteric, oral pharynx no lesions Neck: no JVD, full ROM mild rattle, no wheezing Cardiovascular: RRR, no significant murmur Gastrointestinal: non-tender, no distention Deviation from normal: AAO x 0 Dx/Plan (1) Acute respiratory failure with hypoxia Code(s): J96.01 - ACUTE RESPIRATORY FAILURE WITH HYPOXIA Status: Acute (2) COVID-19 Code(s): U07.1 - COVID-19 Status: Acute (3) CKD (chronic kidney disease) Code(s): N18.9 - CHRONIC KIDNEY DISEASE, UNSPECIFIED Status: Chronic (4) Dementia Code(s): F03.90 - UNSPECIFIED DEMENTIA WITHOUT BEHAVIORAL DISTURBANCE Status: Chronic (5) HLD (hyperlipidemia) Code(s): E78.5 - HYPERLIPIDEMIA, UNSPECIFIED Status: Chronic (6) HTN (hypertension) Code(s): I10 - ESSENTIAL (PRIMARY) HYPERTENSION Status: Chronic (7) Seizures Code(s): R56.9 - UNSPECIFIED CONVULSIONS Status: Chronic - Plan Plan: Pt is an 80 yo male here for: # Transitioned to Hospice Care - Daughter will attemp to see pt today #Acute Hypoxic Respiratory Failure, 2/2 COVID PNA -Pt is on hospice care -[place] supplemented oxygen Chronic Problems: # CKD 3 # Pancytopenia # Atrial Fibrillation # COPD # GERD # Alzheimer's Dementia # Hx of Seizures # Hx of CVA # HTN Code: DNAR - confirmed with Patient's Daughter (MPOA) PCP: Isaura Diet: Regular w/ Thickened Textures and Enlive per Speech Therapy / Dietary Social: Will update patient's daughter PRN (Opal Danny: [phone]) Dispo: pt is on hospice
--- NOTE | 2020-08-29 12:16 | DIS ---
DATE OF ADMISSION: 08/21/2020 DATE OF DISCHARGE: 08/26/2020 RESIDENT: Arpit Edwards DO ATTENDING: Nathanael Preston MD DISCHARGE ATTENDING: Nathanael Preston MD DATE OF : 08/26/2020. TIME OF : 08:20 a.m. CAUSE OF : 1. Acute hypoxic respiratory failure secondary to COVID. 2. Severe Alzheimer disease. SECONDARY DIAGNOSES: 1. Chronic kidney disease 3. 2. Pancytopenia. 3. Atrial fibrillation. 4. Chronic obstructive pulmonary disease. 5. Gastroesophageal reflux disease. 6. Alzheimer dementia. 7. History of seizures. 8. History of cerebrovascular accident. 9. Hypertension. HOSPITAL COURSE: Please refer to Arnold Garduno's previous stay for the hospital course. Once admitted to hospice care with withdrawal of care, where he received scopolamine, morphine, Ativan to help make the patient comfortable. He was weaned off his high-flow oxygen onto nasal cannula oxygen 6 L for his stay. Subsequently on 08/26/2020 at 8:20, Mr. Barrett . His daughter luckily had been able to see him over the last couple of days. She did come in after the time of his . I had discussions with the daughter prior to his passing and leading up to the time and after his passing. She was grateful of our care, but obviously heartbroken for loss of her father and also dealing with making a tough decision to make him DNR. Job ID: [id number]
== END 2020-08-26 08:00 | disposition expired | DRG 951 ==
LOC: T4-A 14:10
PROVIDERS: ADMIT Family Medicine; ATTEND Family Medicine
PROC: 8E0ZXY6 Isolation (ICD-10-PCS; principal; 2020-08-21)
DX: Z51.5 Encounter for palliative care (principal); U07.1 COVID-19; J96.01 Acute respiratory failure with hypoxia; J12.89 Other viral pneumonia; D61.818 Other pancytopenia; J44.0 Chronic obstructive pulmonary disease with (acute) lower respiratory infection; Z66 Do not resuscitate; E78.5 Hyperlipidemia, unspecified; I12.9 Hypertensive chronic kidney disease with stage 1 through stage 4 chronic kidney disease, or unspecified chronic kidney disease; N18.30 Chronic kidney disease, stage 3 unspecified; G30.9 Alzheimer's disease, unspecified; F02.80 Dementia in other diseases classified elsewhere, unspecified severity, without behavioral disturbance, psychotic disturbance, mood disturbance, and anxiety; I48.91 Unspecified atrial fibrillation; G40.909 Epilepsy, unspecified, not intractable, without status epilepticus; Z86.73 Personal history of transient ischemic attack (TIA), and cerebral infarction without residual deficits
CPT/HCPCS: J2060; J2270; U0002